=== PATIENT | male | born 1985 | race African-American/Black ===

== ENCOUNTER 2019-05-31 06:36 | Emergency (ER) | payer SELFPAY ==
--- OUTSIDE RECORDS SUMMARY | 2019-05-31 06:39 | XMS REPORT ---
:1985 [facility] Address [address] [place] [address] Dr. Abreu [address] [place] [id number] Care Team Providers Name Role Phone Unavailable Unavailable Unavailable Problems This patient has no known problems. Allergies, Adverse Reactions, Alerts This patient has no known allergies or adverse reactions. Medications This patient has no known medications.
[2019-05-31] MEDS ORDERED: METHYLPREDNISOLONE 125 MG INJ ONE (06:52)
[2019-05-31] MEDS ORDERED: LEVALBUTEROL 1.25 MG/3 ML NEB ONE ×2 (06:53→08:13)
[2019-05-31] MEDS ORDERED: Magnesium Sulfate 2gm IVPB 2 G/50 ML BAG IV ONE (06:53)
[2019-05-31] MEDS ORDERED: NA CHLORIDE 0.9% 1,000 ML ONE ×2 (07:05→09:06)
[2019-05-31 07:07] LABS: Absolute Lymphocytes (CBC) 1.2 K/uL (0.7-4.9); Basophils % 0.4 % (0-1.3); Hematocrit 39.3 % (39.6-49.0); Lymphocytes % 9.5 % (15.3-44.8); MPV 8.1 fL (7.6-11.3); RBC Red Blood Cell Count 4.68 M/uL (4.33-5.43)
[2019-05-31 07:56] LABS: Albumin 3.9 g/dL (3.4-5.0); Bilirubin Total 0.6 mg/dL (0.2-1.0); Potassium 3.6 mmol/L (3.5-5.1); Protein, Total 8.3 g/dL (6.4-8.2)
[2019-05-31] MEDS ORDERED: ACETAMINOPHEN 500 MG TAB ONE (07:56)
[2019-05-31] MEDS ORDERED: MAGNESIUM SULFATE 1 gm IVPB 1 GM/100 ML BAG IV ONE (08:02)
[2019-05-31] MEDS ORDERED: IPRATROPIUM BROM 0.5MG/2.5ML ONE (08:09)
--- NOTE | 2019-05-31 08:19 | RAD REPORT ---
EXAM DESCRIPTION: Mikaela Single View05/31/2019 6:56 am CLINICAL HISTORY: Shortness of breath COMPARISON: 2018 FINDINGS: The lungs appear clear of acute infiltrate. The heart is normal size IMPRESSION: No acute abnormalities displayed If the patient's symptoms persist PA and lateral chest series would be recommended
[2019-05-31] MEDS ORDERED: OSELTAMIVIR 75 MG CAP ONE (09:06)
[2019-05-31] MEDS ORDERED: IBUPROFEN 400 MG TAB ONE (09:38)
--- NOTE | 2019-05-31 12:01 | ER ---
Nurse's Notes [facility] Name: Isaiah Spain Age: 33 yrs Sex: Male : 1985 Arrival Date: 05/31/2019 Time: 06:40 Bed 8 Private MD: Diagnosis: Unspecified asthma with (acute) exacerbation;Influenza due to certain identified influenza viruses Presentation: 05/31 06:41 Presenting complaint: Patient states: Reports he started having an asthma flair up last ea night, reports taking his albuterol multiple times without improvement. Transition of care: patient was not received from another setting of care. Onset of symptoms was May 31, 2019. Risk Assessment: Do you want to hurt yourself or someone else? Patient reports no desire to harm self or others. Initial Sepsis Screen: Does the patient meet any 2 criteria? RR > 20 per min. Does the patient have a suspected source of infection? No. Patient's initial sepsis screen is negative. Care prior to arrival: Medication(s) given: Albuterol Neb. 06:41 Method Of Arrival: Ambulatory ea 06:41 Acuity: TAWANA 3 ea Triage Assessment: 06:46 General: Appears uncomfortable, Behavior is appropriate for age. Pain: Denies pain. ea Neuro: Level of Consciousness is awake, alert, obeys commands, Oriented to person, place, time, situation. Cardiovascular: Patient's skin is warm and dry. Respiratory: Reports shortness of breath Onset: The symptoms/episode began/occurred yesterday, the patient has mild shortness of breath. Derm: Skin is pink, warm \\T\\ dry. Historical: - Allergies: 06:46 No Known Allergies; ea - Home Meds: 06:46 ProAir HFA 90 mcg/actuation inhalation HFAA [Active]; ea - PMHx: 06:46 Asthma; ea - Immunization history:: Adult Immunizations not up to date. - Coronavirus screen:: The patient has NOT traveled to [place], [place], or [place] in the past 14 days. - Social history:: Smoking status: Patient denies any tobacco usage or history of. - Ebola Screening: : No symptoms or risks identified at this time. Screenin:45 Abuse screen: Denies threats or abuse. Nutritional screening: No deficits noted. ea Tuberculosis screening: No symptoms or risk factors identified. Fall Risk None identified. Assessment: 07:23 Reassessment: Lab at bedside recollecting chem 7 and collecting 2nd set of blood aa5 cultures. Pt states SOB has improved. . 08:00 Reassessment: Patient appears in no apparent distress at this time. request another em breathing treatment, provider notified. 09:55 Reassessment: Patient appears in no apparent distress at this time. Patient and/or em family updated on plan of care and expected duration. Pain level reassessed. Patient is alert, oriented x 3, equal unlabored respirations, skin warm/dry/pink. Patient states feeling better. Vital Signs: 06:44 BP 180 / 130; Pulse 139; Resp 24; Temp 97.6; Pulse Ox 97% on R/A; Weight 111.13 kg; ea Height 5 ft. 8 in. (172.72 cm); 07:49 BP 194 / 121; Pulse 142; Resp 20; Temp 101.7(O); Pulse Ox 96% on R/A; mh5 08:10 BP 197 / 102; em 08:10 Pulse 128; aa5 09:00 BP 189 / 94; Pulse 136; Resp 22 S; Pulse Ox 94% on R/A; aa5 09:23 Pulse 124; Resp 24 S; Temp 98.3(O); aa5 11:09 BP 186 / 112; Pulse 115; Resp 20; Pulse Ox 93% on R/A; em 06:44 Body Mass Index 37.25 (111.13 kg, 172.72 cm) ea 09:23 PA notified of decreased temperature aa5 ED Course: 06:40 Patient arrived in ED. ds1 06:42 Jose Cruz Acosta PA is PHCP. jmm 06:42 Nehemiah Faulkner MD is Attending Physician. jmm 06:43 Triage completed. ea 06:44 Patient has correct armband on for positive identification. Bed in low position. Call ea light in reach. Side rails up X 1. 06:45 Arm band placed on right wrist. Patient placed in an exam room, on a stretcher, on ea pulse oximetry. 06:54 Chest Single View XRAY In Process Unspecified. EDMS 06:58 Inserted saline lock: 20 gauge in left antecubital area, using aseptic technique. Blood rv collected. per [facility] tech. 07:00 Noel Thompson, RN is Primary Nurse. em 08:55 Pt states "my IV came out, I woke up and sat up fast so it came out". 20 G to L AC aa5 catheter intact, no swelling to site, pressure dressing applied, no active bleeding noted. 09:00 Inserted saline lock: 20 gauge in left antecubital area, using aseptic technique. aa5 13:02 IV discontinued, intact, bleeding controlled, No redness/swelling at site. Pressure em dressing applied. 13:02 No provider procedures requiring assistance completed. em Administered Medications: 06:57 Drug: Magnesium Sulfate 1 grams Route: IVPB; Infused Over: 1 hrs; Site: left rv antecubital; 07:55 Follow up: IV Status: Completed infusion aa5 06:57 Drug: SOLU-Medrol 125 mg Route: IVP; Site: left antecubital; rv 06:57 Drug: Xopenex (3) 1.25 mg Route: Inhalation; rv 07:06 Drug: NS 0.9% 1000 ml Route: IV; Rate: 1 bolus; Site: left antecubital; em 08:55 Follow up: IV Status: Completed infusion; IV Intake: 1000ml aa5 07:53 Drug: Tylenol 1000 mg Route: PO; aa5 09:31 Follow up: Response: No adverse reaction; Temperature is decreased em 08:02 Drug: Magnesium Sulfate 1 grams Route: IVPB; Infused Over: 1 hrs; Site: left em antecubital; 08:55 Follow up: IV came out, infusion paused at this time aa5 09:00 Follow up: Infusion restarted to L AC aa5 08:08 Drug: Ipratropium Aerosol 0.5 mg Route: Inhalation; em 09:55 Follow up: Response: No adverse reaction; Marked relief of symptoms em 08:13 Drug: Xopenex (3) 1.25 mg Route: Inhalation; em 09:55 Follow up: Response: No adverse reaction; Marked relief of symptoms em 09:07 Drug: NS 0.9% 1000 ml Route: IV; Rate: 1 bolus; Site: left antecubital; aa5 11:20 Follow up: IV Status: Completed infusion; IV Intake: 1000ml em 09:07 Drug: Tamiflu 75 mg Route: PO; aa5 09:55 Follow up: Response: No adverse reaction em 09:55 Drug: Motrin 800 mg Route: PO; em 11:19 Follow up: Response: No adverse reaction em Intake: 08:55 IV: 1000ml; Total: 1000ml. aa5 11:20 IV: 1000ml; Total: 2000ml. em Outcome: 12:00 [facility]charge [facility] 13:02 Discharged to home ambulatory, with family. em 13:02 Condition: good 13:02 Discharge instructions given to patient, Instructed on discharge instructions, follow up and referral plans. medication usage, Demonstrated understanding of instructions, follow-up care, medications, Prescriptions given X 2. 13:02 Patient left the ED. em Signatures: Dispatcher [employer] EDMS Jose Cruz Acosta PA PA jmm Munoz, Edgar, RN RN Clare Franco1 Martita Tran RN RN Carlita Valencia Elena RN RN Dm Barker RN RN rv Corrections: (The following items were deleted from the chart) 07:52 07:49 Temp 101.7F Oral; [facility]
--- NOTE | 2019-05-31 12:01 | EDPHYS ---
Physician Documentation [facility] Name: Isaiah Spain Age: 33 yrs Sex: Male : 1985 Arrival Date: 05/31/2019 Time: 06:40 Bed 8 Private MD: ED Physician Nehemiah Faulkner HPI: 05/31 06:44 This 33 yrs old Black Male presents to ER via Ambulatory with complaints of Shortness jmm Of Breath. 06:44 The patient has shortness of breath at rest. Onset: The symptoms/episode began/occurred jmm gradually, 1 day(s) ago. Duration: The symptoms are continuous. The patient's shortness of breath is aggravated by nothing, is alleviated by inhaler. Associated signs and symptoms: Pertinent negatives: non-productive cough, productive cough, fever, hemoptysis. This is a 33 year old male with a history of asthma that presents to the ED with complaints of shortness of breath. This episode is similar to previous exacerbations. Patient states he has been hospitalized and intubated secondary to asthma attacks before. Denies fever, denies chest pain. Historical: - Allergies: 06:46 No Known Allergies; ea - Home Meds: 06:46 ProAir HFA 90 mcg/actuation inhalation HFAA [Active]; ea - PMHx: 06:46 Asthma; ea - Immunization history:: Adult Immunizations not up to date. - Coronavirus screen:: The patient has NOT traveled to [place], [place], or [place] in the past 14 days. - Social history:: Smoking status: Patient denies any tobacco usage or history of. - Ebola Screening: : No symptoms or risks identified at this time. ROS: 06:44 Constitutional: Negative for fever, chills, and weight loss, Cardiovascular: Negative jmm for chest pain, palpitations, and edema. 06:44 Abdomen/GI: Negative for abdominal pain, nausea, vomiting, diarrhea, and constipation, Neuro: Negative for headache, weakness, numbness, tingling, and seizure. 06:44 Respiratory: Positive for shortness of breath. 06:44 All other systems are negative. Exam: 06:44 Constitutional: This is a well developed, well nourished patient who is awake, alert, jmm and in no acute distress. Head/Face: atraumatic. Eyes: EOMI, no conjunctival erythema appreciated ENT: Moist Mucus Membranes Neck: Trachea midline, Supple Chest/axilla: Normal chest wall appearance and motion. Cardiovascular: Regular rate and rhythm. No edema appreciated 06:44 Abdomen/GI: Non distended, soft Back: Normal ROM Skin: General appearance color normal MS/ Extremity: Moves all extremities, no obvious deformities appreciated, no edema noted to the lower extremities Neuro: Awake and alert, normal gait Psych: Behavior is normal, Mood is normal, Patient is cooperative and pleasant 06:44 Respiratory: mild respiratory distress is noted, Respirations: labored breathing, that is mild, Breath sounds: decreased breath sounds, that are moderate. Vital Signs: 06:44 BP 180 / 130; Pulse 139; Resp 24; Temp 97.6; Pulse Ox 97% on R/A; Weight 111.13 kg; ea Height 5 ft. 8 in. (172.72 cm); 07:49 BP 194 / 121; Pulse 142; Resp 20; Temp 101.7(O); Pulse Ox 96% on R/A; 5 08:10 BP 197 / 102; em 08:10 Pulse 128; aa5 09:00 BP 189 / 94; Pulse 136; Resp 22 S; Pulse Ox 94% on R/A; aa5 09:23 Pulse 124; Resp 24 S; Temp 98.3(O); aa5 11:09 BP 186 / 112; Pulse 115; Resp 20; Pulse Ox 93% on R/A; em 06:44 Body Mass Index 37.25 (111.13 kg, 172.72 cm) ea 09:23 PA notified of decreased temperature aa5 MDM: 06:48 Patient medically screened. [facility] 08:05 ED course: Increased breath sounds, wheezing noted bilaterally. [facility] 11:59 Data reviewed: vital signs, nurses notes. Counseling: I had a detailed discussion with [facility] the patient and/or guardian regarding: the historical points, exam findings, and any diagnostic results supporting the discharge/admit diagnosis, lab results, the need for outpatient follow up, to return to the emergency department if symptoms worsen or persist or if there are any questions or concerns that arise at home. ED course: Patient is alert and non toxic in appearance. Does not appear to be in resp distress. Patient given tamiflu. Steroids. Advised to follow up with pcp and otherwise given strict return precautions. Patient understood and agrees with the plan of care. . 01/27 06:44 Order name: CBC with Diff; Complete Time: 07:33 [facility] 05/31 06:44 Order name: CMP; Complete Time: 08:00 [facility] 05/31 06:44 Order name: Blood Culture Adult (2) [facility] 05/31 07:47 Order name: Flu; Complete Time: 08:36 [facility] 05/31 08:28 Order name: Lactate; Complete Time: 09:40 [facility] 05/31 06:44 Order name: Chest Single View XRAY; Complete Time: 08:19 [facility] 05/31 08:28 Order name: Procalcitonin; Complete Time: 09:40 [facility] 05/31 06:44 Order name: Saline Lock; Complete Time: 06:56 [facility] 05/31 07:11 Order name: Labs - recollect needed: recollect c7; Complete Time: 07:22 05/31 11:06 Order name: Misc. Order: Riley to evaluate prior to disposition; Complete Time: 13:01jmm Administered Medications: 06:57 Drug: Magnesium Sulfate 1 grams Route: IVPB; Infused Over: 1 hrs; Site: left rv antecubital; 07:55 Follow up: IV Status: Completed infusion aa5 06:57 Drug: SOLU-Medrol 125 mg Route: IVP; Site: left antecubital; rv 06:57 Drug: Xopenex (3) 1.25 mg Route: Inhalation; rv 07:06 Drug: NS 0.9% 1000 ml Route: IV; Rate: 1 bolus; Site: left antecubital; em 08:55 Follow up: IV Status: Completed infusion; IV Intake: 1000ml aa5 07:53 Drug: Tylenol 1000 mg Route: PO; aa5 09:31 Follow up: Response: No adverse reaction; Temperature is decreased em 08:02 Drug: Magnesium Sulfate 1 grams Route: IVPB; Infused Over: 1 hrs; Site: left em antecubital; 08:55 Follow up: IV came out, infusion paused at this time aa5 09:00 Follow up: Infusion restarted to L AC aa5 08:08 Drug: Ipratropium Aerosol 0.5 mg Route: Inhalation; em 09:55 Follow up: Response: No adverse reaction; Marked relief of symptoms em 08:13 Drug: Xopenex (3) 1.25 mg Route: Inhalation; em 09:55 Follow up: Response: No adverse reaction; Marked relief of symptoms em : Drug: NS 0.9% 1000 ml Route: IV; Rate: 1 bolus; Site: left antecubital; aa5 11:20 Follow up: IV Status: Completed infusion; IV Intake: 1000ml em : Drug: Tamiflu 75 mg Route: PO; aa5 :55 Follow up: Response: No adverse reaction em : Drug: Motrin 800 mg Route: PO; em 11:19 Follow up: Response: No adverse reaction em Disposition: 05/31/19 12:00 Discharged to Home. Impression: Unspecified asthma with (acute) exacerbation, Influenza due to certain identified influenza viruses. - Condition is Stable. - Discharge Instructions: Asthma, Adult, Influenza, Adult. - Prescriptions for Prednisone 20 mg Oral Tablet - take 3 tablet by ORAL route once daily for 5 days; 15 tablet. Tamiflu 75 mg Oral Capsule - take 1 tablet by ORAL route every 12 hours for 5 days; 10 tablet. - Medication Reconciliation Form, Thank You Letter, Antibiotic Education, Prescription Opioid Use form. - Follow up: Private Physician; When: 2 - 3 days; Reason: Recheck today's complaints, Continuance of care, Re-evaluation by your physician. Addendum: 06/03/2019 07:03 Co-signature as Attending Physician, Nehemiah Faulkner MD. r n Signatures: Dispatcher [employer] EDNM Tanya Hearn Joel, PA PA jmm Munoz, Edgar, RN Nehemiah Vincent MD MD rn Calderon, Audri RN RN aa5 Nereyda Butts RN Dm Mathis ea RN RN rv Corrections: (The following items were deleted from the chart) 05/31 11:40 08:17 Influenza Screen (A ordered. [facility] EDNM 13:02 12:00 05/31/2019 12:00 Discharged to Home. Impression: Unspecified asthma with (acute) em exacerbation; Influenza due to certain identified influenza viruses. Condition is Stable. Forms are Medication Reconciliation Form, Thank You Letter, Antibiotic Education, Prescription Opioid Use. Follow up: Private Physician; When: 2 - 3 days; Reason: Recheck today's complaints, Continuance of care, Re-evaluation by your physician. lacy
--- NOTE | 2019-05-31 12:34 | P.CNS ---
Date of Consult: 05/31/19 Primary Care Provider: None Chief Complaint: Shortness of breath History of Present Illness: The patient is a 33-year-old male with past medical history of mild intermittent asthma well controlled with Advair. The patient was in his usual state of health until the night prior to admission when the patient had sudden onset of shortness of breath and felt like his asthma attack. Patient was requiring his rescue inhaler every 2 hr. And significant shortness of breath and had some fever chills and myalgias. Patient does report and contact. His friend has been ill with similar symptoms. Patient symptoms are constant moderate progressively worsening. Patient came into the ER for further evaluation. I was called to evaluate the patient to see if he needs to be hospitalized. he received breathing treatments, steroids his workup revealed a normal chest x- ray however was positive for flu. By the time I saw the patient had already received multiple breathing treatments, was feeling significantly better to not have any hypoxia. Allergies No Known Drug Allergies Allergy (Unverified 05/10/14 16:25) Unknown No Known Allergies Allergy (Uncoded 05/15/17 07:56) Unknown Home medications list reviewed: Yes - Past Medical/Surgical History Diabetic: No -: Asthma Past Surgical History: Patient denies surgical history - Social History Smoking Status: Never smoker Alcohol use: No CD- Drugs: No Place of Residence: Home Review of Systems 10-point ROS is otherwise unremarkable Respiratory: As per HPI Physical Examination General: Alert, Oriented x3, Mild distress, Obese HEENT: Atraumatic, PERRLA, Mucous membr. moist/pink, EOMI, Sclerae nonicteric Neck: Supple Respiratory: Diminished, Expiratory wheezes Cardiovascular: No edema, Normal pulses, Normal S1 S2, Irregular heart rate/ rhythm Gastrointestinal: Normal bowel sounds, Soft and benign, Non-distended, No tenderness Musculoskeletal: No tenderness Neurological: Normal gait, Normal speech, Normal strength at 5/5 x4 extr, Normal tone, Cranial nerves 3-12 intact, Normal affect Laboratory Data (last 24 hrs) 05/31/19 07:25: Sodium 137, Potassium 3.6, BUN 10, Creatinine 1.45 H, Glucose 105, Total Bilirubin 0.6, AST 17, ALT 25, Alkaline Phosphatase 100 05/31/19 06:55: WBC 12.5 H, Hgb 12.8 L, Hct 39.3 L, Plt Count 374 Imagings Data: CLINICAL HISTORY: Shortness of breath COMPARISON: 2018 FINDINGS: The lungs appear clear of acute infiltrate. The heart is normal size IMPRESSION: No acute abnormalities displayed If the patient's symptoms persist PA and lateral chest series would be recommended Dictated By: Nitin Orellana MD 05/31/19 0818 - Problems (1) Influenza Current Visit: Yes Status: Acute (2) Acute asthma exacerbation Current Visit: Yes Status: Acute Qualifiers: Asthma severity: mild Asthma persistence: intermittent Qualified Code(s) : J45.21 - Mild intermittent asthma with (acute) exacerbation (3) Acute kidney injury Current Visit: Yes Status: Acute (4) Obesity Current Visit: Yes Status: Acute Qualifiers: Obesity type: due to excess calories Obesity classification: adult class 2 (BMI 35 - 39.9) Serious obesity comorbidity presence: without serious comorbidity Body mass index: BMI 37.0-37.9 Qualified Code(s): E66.09 - Other obesity due to excess calories; Z68.37 - Body mass index (BMI) 37.0-37.9, adult Conclusions/Impression: Patient received breathing treatments and treatment for his flu. His breathing is significantly better. No hypoxia. The patient has had some tachycardia which may be related to his breathing treatments. Blood pressure is slightly elevated in the 150's. Case discussed with ER provider Jose Cruz AGUDELO No acute signs of hypoxia and good clinical response to breathing treatments Patient stable for discharge with Tamiflu steroids and inhalers. Patient encouraged to establish care with primary care physician and leasing sales consultant. Went over peak flow and emergency asthma treatment plan with the patient. Encouraged to continue with aggressive fluid hydration.
[2019-05-31 13:30] VITALS: TEMP 98.3
[2019-05-31 13:32] VITALS: BP 186/112; O2SAT 93
== END 2019-05-31 13:02 | disposition home or self-care (01) ==
LOC: ER 06:36
DX: J10.89 Influenza due to other identified influenza virus with other manifestations (principal); J45.901 Unspecified asthma with (acute) exacerbation
CPT/HCPCS: 36415; 71045; 80053; 83605; 84145; 85025; 87040; 87804; 96361; 96365; 96375; 99284; J2930; J3475; J7030

== ENCOUNTER 2019-06-10 21:46 | Inpatient (IN) | payer SELFPAY ==
--- OUTSIDE RECORDS SUMMARY | 2019-06-10 21:48 | XMS REPORT ---
:1985 [facility] Address [address] [place] [address] Dr. Abreu [address] [place] [id number] Care Team Providers Name Role Phone Unavailable Unavailable Unavailable Problems This patient has no known problems. Allergies, Adverse Reactions, Alerts This patient has no known allergies or adverse reactions. Medications This patient has no known medications.
--- NOTE | 2019-06-10 22:27 | EDPHYS ---
Physician Documentation [facility] Name: Isaiah Spain Age: 33 yrs Sex: Male : 1985 Arrival Date: 06/10/2019 Time: 21:47 Bed 14 Private MD: ED Physician Jones Lin HPI: 06/10 22:21 This 33 yrs old Black Male presents to ER via Wheelchair with complaints of Breathing ja Difficulty, Dizziness, High Blood Pressure. 22:21 The patient has shortness of breath at rest, with light activity. Onset: The ja symptoms/episode began/occurred 3 day(s) ago. Duration: The symptoms are continuous, and are steadily getting worse. The patient's shortness of breath is aggravated by coughing, light activity, talking. Associated signs and symptoms: Pertinent positives: non-productive cough, dizziness, fever, nausea. Severity of symptoms: At their worst the symptoms were moderate in the emergency department the symptoms are unchanged. The patient has not experienced similar symptoms in the past. Historical: - Allergies: 22:01 No Known Allergies; lp1 - Home Meds: 22:01 ProAir HFA 90 mcg/actuation inhalation HFAA [Active]; lp1 - PMHx: 22:01 Asthma; lp1 - PSHx: 22:01 None; lp1 - Immunization history:: Adult Immunizations up to date. - Coronavirus screen:: The patient has NOT traveled to [place], [place], or [place] in the past 14 days. The patient has NOT had contact with known/suspected case of Coronavirus?. - Social history:: Smoking status: Patient denies any tobacco usage or history of. - Ebola Screening: : No symptoms or risks identified at this time. ROS: 22:22 Eyes: Negative for injury, pain, redness, and discharge, ENT: Negative for injury, ja pain, and discharge, Neck: Negative for injury, pain, and swelling, Cardiovascular: Negative for chest pain, palpitations, and edema, Abdomen/GI: Negative for abdominal pain, nausea, vomiting, diarrhea, and constipation, Back: Negative for injury and pain, : Negative for injury, bleeding, discharge, and swelling, MS/Extremity: Negative for injury and deformity, Skin: Negative for injury, rash, and discoloration, Neuro: Negative for headache, weakness, numbness, tingling, and seizure, Psych: Negative for depression, anxiety, suicide ideation, homicidal ideation, and hallucinations, Allergy/Immunology: Negative for hives, rash, and allergies, Endocrine: Negative for neck swelling, polydipsia, polyuria, polyphagia, and marked weight changes, Hematologic/Lymphatic: Negative for swollen nodes, abnormal bleeding, and unusual bruising. 22:22 Cardiovascular: Positive for palpitations. 22:22 Respiratory: Positive for cough, shortness of breath, wheezing, expiratory. Exam: 22:22 Head/Face: Normocephalic, atraumatic. Eyes: Pupils equal round and reactive to light, ja extra-ocular motions intact. Lids and lashes normal. Conjunctiva and sclera are non-icteric and not injected. Cornea within normal limits. Periorbital areas with no swelling, redness, or edema. ENT: Nares patent. No nasal discharge, no septal abnormalities noted. Tympanic membranes are normal and external auditory canals are clear. Oropharynx with no redness, swelling, or masses, exudates, or evidence of obstruction, uvula midline. Mucous membranes moist. Neck: Trachea midline, no thyromegaly or masses palpated, and no cervical lymphadenopathy. Supple, full range of motion without nuchal rigidity, or vertebral point tenderness. No Meningismus. Chest/axilla: Normal chest wall appearance and motion. Nontender with no deformity. No lesions are appreciated. Respiratory: Lungs have equal breath sounds bilaterally, clear to auscultation and percussion. No rales, rhonchi or wheezes noted. No increased work of breathing, no retractions or nasal flaring. Abdomen/GI: Soft, non-tender, with normal bowel sounds. No distension or tympany. No guarding or rebound. No evidence of tenderness throughout. Back: No spinal tenderness. No costovertebral tenderness. Full range of motion. Male : Normal genitalia with no discharge or lesions. Skin: Warm, dry with normal turgor. Normal color with no rashes, no lesions, and no evidence of cellulitis. MS/ Extremity: Pulses equal, no cyanosis. Neurovascular intact. Full, normal range of motion. Neuro: Awake and alert, GCS 15, oriented to person, place, time, and situation. Cranial nerves II-XII grossly intact. Motor strength 5/5 in all extremities. Sensory grossly intact. Cerebellar exam normal. Normal gait. Psych: Awake, alert, with orientation to person, place and time. Behavior, mood, and affect are within normal limits. 22:22 Constitutional: The patient appears in obvious distress, mildly distressed, moderately distressed. 22:22 Cardiovascular: Rate: tachycardic, Rhythm: regular, Pulses: Pulses are 4+ in bilateral radial, brachial, femoral, popliteal, posterior tibial and and dorsalis pedis arteries.. Heart sounds: normal, Edema: is not appreciated. 22:22 Respiratory: the patient does not display signs of respiratory distress. Vital Signs: 21:59 BP 156 / 98; Pulse 157; Resp 24; Temp 103.3(O); Pulse Ox 100% on R/A; Weight 113.4 kg lp1 (R); Height 5 ft. 8 in. (172.72 cm); Pain 8/10; 23:00 BP 134 / 92; Pulse 102; Resp 29; Pulse Ox 99% ; rr5 06/11 00:00 BP 147 / 102; Pulse 97; Resp 23; Temp 99.3(O); Pulse Ox 98% on R/A; rr5 01:00 BP 147 / 104; Pulse 115; Resp 24; Pulse Ox 96% ; rr5 06/10 21:59 Body Mass Index 38.01 (113.40 kg, 172.72 cm) lp1 MDM: 06/10 22:08 Patient medically screened. [facility] 22:23 Data reviewed: vital signs, nurses notes, lab test result(s), EKG, radiologic studies, [facility] CT scan, plain films. 06/10 22:10 Order name: Amylase, Serum 06/10 22:10 Order name: Basic Metabolic Panel 06/10 22:10 Order name: Blood Culture Adult (2) 06/10 22:10 Order name: CBC with Diff 06/10 22:10 Order name: Ckmb 06/10 22:10 Order name: CPK 06/10 22:10 Order name: Lactate 06/10 22:10 Order name: LFT's 06/10 22:10 Order name: Lipase 06/10 22:10 Order name: Procalcitonin 06/10 22:10 Order name: Protime (+inr) 06/10 22:10 Order name: Ptt, Activated 06/10 22:10 Order name: Troponin (emerg Dept Use Only) 06/10 22:10 Order name: Urine Microscopic Only 06/10 22:10 Order name: Magnesium 06/10 22:10 Order name: NT PRO-BNP 06/10 22:58 Order name: Lactate; Complete Time: 23:05 EDMS 06/10 23:10 Order name: CBC with Automated Diff; Complete Time: 00:12 EDMS 06/10 23:10 Order name: Glucose, Ancillary Testing; Complete Time: 23:33 EDMS 06/10 23:12 Order name: Protime (+INR); Complete Time: 23:33 EDMS 06/10 23:12 Order name: PTT, Activated Partial Thromb; Complete Time: 23:33 EDMS 06/10 23:26 Order name: Basic Metabolic Panel; Complete Time: 23:33 EDMS 06/10 23:26 Order name: Liver (Hepatic) Function; Complete Time: 23:33 EDMS 06/10 23:26 Order name: Creatine Phosphokinase; Complete Time: 23:33 EDMS 06/10 23:26 Order name: CKMB Creatine Kinase MB; Complete Time: 23:33 EDMS 06/10 23:26 Order name: Troponin (Emerg Dept Use Only); Complete Time: 23:33 EDMS 06/10 23:26 Order name: NT PRO-BNP; Complete Time: 23:33 EDMS 06/10 23:26 Order name: Magnesium; Complete Time: 23:33 EDMS 06/10 23:26 Order name: Amylase Level; Complete Time: 23:33 EDMS 06/10 23:26 Order name: Lipase; Complete Time: 23:33 EDMS 06/10 22:10 Order name: Chest Single View XRAY 06/10 22:10 Order name: Accucheck; Complete Time: 00:24 06/10 22:10 Order name: Cardiac monitoring; Complete Time: 22:55 06/10 22:10 Order name: EKG - Nurse/Tech; Complete Time: 22:55 06/10 22:10 Order name: IV Saline Lock - Large Bore; Complete Time: 22:55 06/10 22:10 Order name: Labs collected and sent; Complete Time: 22:55 06/10 22:10 Order name: O2 Per Protocol; Complete Time: 22:55 06/10 22:10 Order name: O2 Sat Monitoring; Complete Time: 22:55 bb 06/10 22:10 Order name: Urine Dipstick-Ancillary (obtain specimen); Complete Time: 00:24 bb 06/10 22:10 Order name: EKG; Complete Time: 22:13 bb 06/10 22:20 Order name: CT Chest For PE Angio ja 06/10 23:31 Order name: Procalcitonin; Complete Time: 23:33 EDMS 06/10 23:56 Order name: Manual Differential; Complete Time: 00:12 EDMS 06/11 00:04 Order name: Urine Dipstick--Ancillary (enter results) mw2 06/11 00:12 Order name: Urine Culture [facility] 06/11 00:17 Order name: Urine Dipstick-Ancillary EDDC 06/11 00:22 Order name: Urine Microscopic Only EDMS Administered Medications: 22:20 Drug: Motrin 800 mg Route: PO; rr5 23:40 Follow up: Response: No adverse reaction; Temperature is decreased rr5 22:20 Drug: Tylenol 1000 mg Route: PO; rr5 23:40 Follow up: Response: No adverse reaction; Marked relief of symptoms; Temperature is rr5 decreased 22:25 Drug: NS 0.9% (30 ml/kg) 30 ml/kg Route: IV; Rate: bolus; Site: right hand; rr5 06/11 01:16 Follow up: Response: No adverse reaction; IV Status: Infusion continued upon admission; rr5 IV Intake: 2600ml 06/10 22:30 Drug: Xopenex 1.25 mg Route: Inhalation; rr5 23:30 Follow up: Response: No adverse reaction; Marked relief of symptoms rr5 22:30 Drug: AtroVENT Aerosol 0.5 mg Route: Inhalation; rr5 23:30 Follow up: Response: No adverse reaction; Marked relief of symptoms rr5 22:45 Drug: Rocephin 2 grams Route: IV; Rate: per protocol; Site: right hand; rr5 23:00 Follow up: Response: No adverse reaction; IV Status: Completed infusion; IV Intake: [id number] 22:55 Drug: Zofran 4 mg Route: IVP; Site: right hand; rr5 06/11 00:00 Follow up: Response: No adverse reaction rr5 06/10 22:59 Dru mg of (Zithromax 500 mg, NS 0.9% 250 ml) Route: IVPB; Infused Over: 1 hrs; rr5 Site: right hand; 06/11 00:00 Follow up: Response: No adverse reaction; IV Status: Completed infusion; IV Intake: rr5 250ml 06/10 23:08 Drug: SOLU-Medrol 125 mg Route: IVP; Site: right hand; rr5 06/11 00:10 Follow up: Response: No adverse reaction rr5 06/10 23:08 Drug: Xopenex 1.25 mg Route: Inhalation; rr5 06/11 00:20 Follow up: Response: No adverse reaction; Marked relief of symptoms rr5 06/10 23:35 Drug: Magnesium Sulfate 2 grams Route: IVPB; Infused Over: 2 hrs; Site: right hand; rr5 06/11 01:15 Follow up: Response: No adverse reaction; IV Status: Infusion continued upon admission; rr5 IV Intake: 30ml 00:05 Drug: Aspirin Chewable Tablet 324 mg Route: PO; rr5 01:13 Follow up: Response: No adverse reaction rr5 Disposition: 06/10/19 22:24 Hospitalization ordered by [facility] for Inpatient Admission. Preliminary diagnosis are Dyspnea - failed out patient treatment, Fever, unspecified, Pneumonia due to other specified bacteria, Asthma, Hypomagnesemia, Elevated white blood cell count. - Bed requested for Telemetry/MedSurg (Inpatient). - Status is Inpatient Admission. rr5 - Condition is Fair. - Problem is new. - Symptoms have improved. Signatures: Dispatcher [employer] EDMS Jones Lin MD MD cha Ballard, Brenda, RN RN Diana Garcia RN RN lp1 Zoë Elder RN RN Justin Marroquin RN RN rr5 Corrections: (The following items were deleted from the chart) 06/10 23:35 22:24 Hospitalization Ordered by [facility] for Inpatient Admission. Preliminary [facility] diagnosis is Dyspnea - failed out patient treatment; Fever, unspecified; Pneumonia due to other specified bacteria; Asthma. Bed requested for Telemetry/MedSurg (Inpatient). Status is Inpatient Admission. Condition is Fair. Problem is new. Symptoms have improved. ja 06/11 00:03 06/10 23:35 06/10/2019 22:24 Hospitalization Ordered by [facility] for Inpatient cg Admission. Preliminary diagnosis is Dyspnea - failed out patient treatment; Fever, unspecified; Pneumonia due to other specified bacteria; Asthma; Hypomagnesemia; Elevated white blood cell count. Bed requested for Telemetry/MedSurg (Inpatient). Status is Inpatient Admission. Condition is Fair. Problem is new. Symptoms have improved. [facility] 06/11 01:46 00:03 06/10/2019 22:24 Hospitalization Ordered by [facility] for Inpatient rr5 Admission. Preliminary diagnosis is Dyspnea - failed out patient treatment; Fever, unspecified; Pneumonia due to other specified bacteria; Asthma; Hypomagnesemia; Elevated white blood cell count. Bed requested for Telemetry/MedSurg (Inpatient). Status is Inpatient Admission. Condition is Fair. Problem is new. Symptoms have improved. cg
--- NOTE | 2019-06-10 22:27 | ER ---
Nurse's Notes [facility] Name: Isaiah Spain Age: 33 yrs Sex: Male : 1985 Arrival Date: 06/10/2019 Time: 21:47 Bed 14 Private MD: Diagnosis: Dyspnea-failed out patient treatment;Fever, unspecified;Pneumonia due to other specified bacteria;Asthma;Hypomagnesemia;Elevated white blood cell count Presentation: 06/10 21:58 Presenting complaint: Patient states: Shortness of breath today; States no relief with lp1 inhaler and nebulizer at home; states diagnosed with the Flu last week here in ED; States dizziness and headache. Transition of care: patient was not received from another setting of care. Onset of symptoms was June 10, 2019. Risk Assessment: Do you want to hurt yourself or someone else? Patient reports no desire to harm self or others. Initial Sepsis Screen: Does the patient meet any 2 criteria? RR > 20 per min. Temp <36.0*C (96.8*F)) or > 38.3*C (100.9*F). HR > 90 bpm. Does the patient have a suspected source of infection? Yes: Productive cough/pneumonia. Care prior to arrival: None. 21:58 Method Of Arrival: Wheelchair lp1 21:58 Acuity: TAWANA 2 lp1 Triage Assessment: 22:00 Respiratory: the patient has mild shortness of breath. rr5 Historical: - Allergies: 22:01 No Known Allergies; lp1 - Home Meds: 22:01 ProAir HFA 90 mcg/actuation inhalation HFAA [Active]; lp1 - PMHx: 22:01 Asthma; lp1 - PSHx: 22:01 None; lp1 - Immunization history:: Adult Immunizations up to date. - Coronavirus screen:: The patient has NOT traveled to [place], [place], or [place] in the past 14 days. The patient has NOT had contact with known/suspected case of Coronavirus?. - Social history:: Smoking status: Patient denies any tobacco usage or history of. - Ebola Screening: : No symptoms or risks identified at this time. Screenin:00 Abuse screen: Denies threats or abuse. Denies injuries from another. Nutritional rr5 screening: No deficits noted. 22:00 Tuberculosis screening: No symptoms or risk factors identified. Fall Risk IV access (20 rr5 points). Total Justice Fall Scale indicates No Risk (0-24 pts). Assessment: 22:00 General: Appears in no apparent distress. uncomfortable, ill, Behavior is calm, rr5 cooperative, appropriate for age. 22:00 Pain: Complains of pain in head Pain does not radiate. Pain currently is 8 out of 10 on rr5 a pain scale. Quality of pain is described as aching, Pain began gradually, Is intermittent. Neuro: Level of Consciousness is awake, alert, obeys commands, Oriented to person, place, time, situation, Appropriate for age Reports dizziness, headache. Cardiovascular: Capillary refill < 3 seconds Patient's skin is warm and dry. Rhythm is sinus tachycardia. Respiratory: Reports shortness of breath cough that is been diagnosed Flu last week Airway is patent Respiratory effort is even, unlabored, Respiratory pattern is regular, tachypnea GI: No signs and/or symptoms were reported involving the gastrointestinal system. : No signs and/or symptoms were reported regarding the genitourinary system. EENT: No signs and/or symptoms were reported regarding the EENT system. Derm: Skin is intact, is healthy with good turgor, Skin temperature is warm. Musculoskeletal: Circulation, motion, and sensation intact. Capillary refill < 3 seconds. 23:00 Reassessment: Patient appears in no apparent distress at this time. Patient and/or rr5 family updated on plan of care and expected duration. Pain level reassessed. Patient is alert, oriented x 3, equal unlabored respirations, skin warm/dry/pink. awaiting for results. for admission hospitalist at bedside examining the patient. 23:05 Reassessment: WBC 20.9 candy of laboratory staff called, ED provider aware. rr5 02/07 00:16 Reassessment: Patient appears in no apparent distress at this time. Patient is alert, rr5 oriented x 3, equal unlabored respirations, skin warm/dry/pink. for CT angio PE. sitting on the bed comfortably. Patient states feeling better. Patient states symptoms have improved. 01:19 Reassessment: Patient appears in no apparent distress at this time. Patient is alert, rr5 oriented x 3, equal unlabored respirations, skin warm/dry/pink. for transfer to Room 213. 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 Patient states symptoms have improved. Vital Signs: 06/10 21:59 BP 156 / 98; Pulse 157; Resp 24; Temp 103.3(O); Pulse Ox 100% on R/A; Weight 113.4 kg lp1 (R); Height 5 ft. 8 in. (172.72 cm); Pain 8/10; 23:00 BP 134 / 92; Pulse 102; Resp 29; Pulse Ox 99% ; rr5 02 00:00 BP 147 / 102; Pulse 97; Resp 23; Temp 99.3(O); Pulse Ox 98% on R/A; rr5 01:00 BP 147 / 104; Pulse 115; Resp 24; Pulse Ox 96% ; rr5 02 21:59 Body Mass Index 38.01 (113.40 kg, 172.72 cm) lp1 ED Course: 06/10 21:47 Patient arrived in ED. jg7 21:53 Justin Marroquin, RN is Primary Nurse. rr5 21:59 Triage completed. lp1 22:00 Arm band placed on. lp1 22:00 Patient has correct armband on for positive identification. Placed in gown. Bed in low rr5 position. Call light in reach. bus monitor on. Pulse ox on. NIBP on. 22:08 Jones Lin MD is Attending Physician. ja 22:20 No provider procedures requiring assistance completed. Inserted saline lock: 20 gauge rr5 in right hand, using aseptic technique. Blood collected. 22:20 First set of blood cultures drawn. rr5 22:23 [facility] is Hospitalizing Provider. ja 22:40 EKG done, by ED staff, reviewed by Jones Lin MD. rr5 23:00 Second set of blood cultures drawn by ny. rr5 23:04 Radiology exam delayed due to lab results not completed at this time. (BUN/Creatinine). kw1 23:56 Radiology exam delayed due to IV insertion attempt and/or patient not having kw1 appropriate IV at this time. 06/11 00:08 Inserted saline lock: 20 gauge in left antecubital area, using aseptic technique. ds4 01:10 Patient admitted, IV remains in place. intact, No redness/swelling at site. rr5 Administered Medications: 06/10 22:20 Drug: Motrin 800 mg Route: PO; rr5 23:40 Follow up: Response: No adverse reaction; Temperature is decreased rr5 22:20 Drug: Tylenol 1000 mg Route: PO; rr5 23:40 Follow up: Response: No adverse reaction; Marked relief of symptoms; Temperature is rr5 decreased 22:25 Drug: NS 0.9% (30 ml/kg) 30 ml/kg Route: IV; Rate: bolus; Site: right hand; rr5 06/11 01:16 Follow up: Response: No adverse reaction; IV Status: Infusion continued upon admission; rr5 IV Intake: 2600ml 06/10 22:30 Drug: Xopenex 1.25 mg Route: Inhalation; rr5 23:30 Follow up: Response: No adverse reaction; Marked relief of symptoms rr5 22:30 Drug: AtroVENT Aerosol 0.5 mg Route: Inhalation; rr5 23:30 Follow up: Response: No adverse reaction; Marked relief of symptoms rr5 22:45 Drug: Rocephin 2 grams Route: IV; Rate: per protocol; Site: right hand; rr5 23:00 Follow up: Response: No adverse reaction; IV Status: Completed infusion; IV Intake: [id number] 22:55 Drug: Zofran 4 mg Route: IVP; Site: right hand; rr5 06/11 00:00 Follow up: Response: No adverse reaction rr5 06/10 22:59 Dru mg of (Zithromax 500 mg, NS 0.9% 250 ml) Route: IVPB; Infused Over: 1 hrs; rr5 Site: right hand; 06/11 00:00 Follow up: Response: No adverse reaction; IV Status: Completed infusion; IV Intake: rr5 250ml 06/10 23:08 Drug: SOLU-Medrol 125 mg Route: IVP; Site: right hand; rr5 06/11 00:10 Follow up: Response: No adverse reaction rr5 06/10 23:08 Drug: Xopenex 1.25 mg Route: Inhalation; rr5 06/11 00:20 Follow up: Response: No adverse reaction; Marked relief of symptoms rr5 06/10 23:35 Drug: Magnesium Sulfate 2 grams Route: IVPB; Infused Over: 2 hrs; Site: right hand; rr5 06/11 01:15 Follow up: Response: No adverse reaction; IV Status: Infusion continued upon admission; rr5 IV Intake: 30ml 00:05 Drug: Aspirin Chewable Tablet 324 mg Route: PO; rr5 01:13 Follow up: Response: No adverse reaction rr5 Intake: 06/10 23:00 IV: 20ml; Total: 20ml. rr5 06/11 00:00 IV: 250ml; Total: 270ml. rr5 01:15 IV: 30ml; Total: 300ml. rr5 01:16 IV: 2600ml; Total: 2900ml. rr5 Outcome: 06/10 22:24 Decision to Hospitalize by Provider. ja 06/11 01:05 Admitted to Med/surg accompanied by tech, via wheelchair, room 213, with chart, Report rr5 called to [facility] Condition: stable Instructed on the need for admit. 01:46 Patient left the ED. rr5 Signatures: Jones Lin MD MD cha Pena, Laura, RN RN lp1 Marcus Alfaro ds4 Laura Mosqueda kw1 Justin Marroquin RN RN rr5 Angie [id number] Corrections: (The following items were deleted from the chart) 01:14 00:05 Magnesium Sulfate 2 grams IVPB in right hand over 2 hrs rr5 rr5 01:14 01:13 Response: No adverse reaction; IV Status: Infusion continued upon admission; IV rr5 Intake: 2500ml rr5
[2019-06-10] MEDS ORDERED: IPRATROPIUM BROM 0.5MG/2.5ML ONE (22:32)
[2019-06-10] MEDS ORDERED: NA CHLORIDE 0.9% 500 ML ONE (22:32)
[2019-06-10] MEDS ORDERED: IBUPROFEN 400 MG TAB ONE (22:32)
[2019-06-10] MEDS ORDERED: NA CHLORIDE 0.9% 250 ML ONE (22:32)
[2019-06-10] MEDS ORDERED: CEFTRIAXONE/SWI 1gm 1 GM/10 ML SYR ONE ×2 (22:32→23:07)
[2019-06-10] MEDS ORDERED: AZITHROMYCIN 500 MG INJ IVPB ONE (22:32)
[2019-06-10] MEDS ORDERED: ACETAMINOPHEN 500 MG TAB ONE (22:32)
[2019-06-10] MEDS ORDERED: LEVALBUTEROL 1.25 MG/3 ML NEB ONE ×2 (22:33→23:07)
[2019-06-10] MEDS ORDERED: NA CHLORIDE 0.9% 3,000 ML ONE (22:33)
[2019-06-10 22:35] LABS: Absolute Lymphocytes (CBC) 0.9 K/uL (0.7-4.9); Basophils % 0.3 % (0-1.3)
[2019-06-10] MEDS ORDERED: ONDANSETRON 4 MG/2 ML VIAL ONE (22:54)
[2019-06-10 23:03] LABS: Hematocrit 40.4 % (39.6-49.0); Lymphocytes % 4.5 % (15.3-44.8); RBC Red Blood Cell Count 4.81 M/uL (4.33-5.43)
[2019-06-10] MEDS ORDERED: METHYLPREDNISOLONE 125 MG INJ ONE (23:07)
[2019-06-10 23:10] LABS: Protime INR 1.29
[2019-06-10 23:25] LABS: ALT/SGPT 20 U/L (12-78); AST/SGOT 21 U/L (15-37); Albumin 3.4 g/dL (3.4-5.0); Alkaline Phosphatase 89 U/L (45-117); Amylase Level 107 U/L (25-115); BUN Blood Urea Nitrogen 12 mg/dL (7-18); Bicarbonate 24 mmol/L (21-32); Bilirubin Direct 0.2 mg/dL (0-0.2); CKMB Creatine Kinase MB < 1.0 ng/mL (0.3-3.6); Creatine Phosphokinase 250 U/L (39-308); Glucose Level 98 mg/dL (74-106); Lipase 189 U/L (73-393); Magnesium 1.5 mg/dL (1.8-2.4); NT PRO-BNP 654 pg/mL (<125); Potassium 3.6 mmol/L (3.5-5.1); Protein, Total 8.1 g/dL (6.4-8.2); Sodium Level 135 mmol/L (136-145); Troponin (Emerg Dept Use Only) 0.05 ng/mL (0.0-0.045)
--- NOTE | 2019-06-10 23:54 | P.HP ---
Certification for Inpatient Patient admitted to: Inpatient With expected LOS: >2 Midnights Practitioner: I am a practitioner with admitting privileges, knowledge of patient current condition, hospital course, and medical plan of care. Services: Services provided to patient in accordance with Admission requirements found in Title 42 Section 412.3 of the Code of Federal Regulations Patient History Date of Service: 06/11/19 Reason for admission: Fever and malaise History of Present Illness: 33-year-old gentleman with a history of asthma presented to the ED with a complaint of generalized weakness, malaise and fever. The patient was in the ED 1 week ago, diagnosed with influenza A infection and started on Tamiflu. He stated he felt fine for several days but started having fever yesterday. He reports nonproductive cough and occasional wheeze. He denies chest pain. He denies nasal congestion. Patient noted to be febrile with temperature up to 103.3 in the ED. Blood work in the ED revealed severe leukocytosis. Pro calcitonin elevated. Serum creatinine is elevated to 1.7 compared to baseline of 1, and troponin mildly elevated. CTA thorax is reporting small burden bilateral PE. I suspect patient also has ongoing acute viral illness, bacterial infection was ruled out. Patient is admitted for further management. Allergies No Known Drug Allergies Allergy (Verified 06/11/19 02:01) Unknown No Known Allergies Allergy (Uncoded 05/15/17 07:56) Unknown Home Medications: Albuterol Sulfate [Proair Hfa] 1 puff IH Q6HP PRN 06/11/19 - Past Medical/Surgical History Diabetic: No -: Asthma - Family History Mother -: Heart disease - Social History Smoking Status: Light Tobacco smoker (1-9 cigarettes/day) Alcohol use: No CD- Drugs: No Place of Residence: Home Review of Systems Other: General: No unintentional weight loss. Eyes: No eye discharge, Respiratory: No shortness of breath. CVS: No chest pain, no palpitation, no lightheadedness. GI: No abdominal pain, no nausea no vomit, no constipation, no diarrhea. Genitourinary: No dysuria, no urinary frequency, no incontinence, no hematuria. Musculoskeletal: No joint pains, or joint swelling, no gait instability. Neurology: No headache, no asymmetric weakness, no problem with swallowing. Except as documented, all other systems reviewed and negative. Physical Examination - Physical Exam General: Alert, In no apparent distress, Oriented x3, Obese HEENT: Atraumatic, Normocephalic, Mucous membr. moist/pink, Sclerae nonicteric Neck: Supple, JVD not distended Respiratory: Clear to auscultation bilaterally, Normal air movement Cardiovascular: No edema, Normal S1 S2, Other (Tachycardia) Capillary refill: <2 Seconds Gastrointestinal: Normal bowel sounds, Soft and benign, Non-distended, No tenderness Musculoskeletal: No swelling, No erythema Integumentary: No rashes, No tenderness/swelling Neurological: Normal speech, Normal strength at 5/5 x4 extr, Cranial nerves 3- 12 intact - Studies Laboratory Data (last 24 hrs) 06/10/19 22:22: Sodium 135 L, Potassium 3.6, BUN 12, Creatinine 1.74 H, Glucose 98, Magnesium 1.5 L, Total Bilirubin 1.0, AST 21, ALT 20, Alkaline Phosphatase 89, Amylase 107, Lipase 189 06/10/19 22:20: PT 15.1 H, INR 1.29, APTT 31.4 06/10/19 22:20: WBC 20.9 H* D, Hgb 12.9 L, Hct 40.4, Plt Count 390 Assessment and Plan - Problems (Diagnosis) (1) Sepsis Current Visit: Yes Status: Acute (2) Influenza A Current Visit: Yes Status: Acute (3) Elevated troponin Current Visit: Yes Status: Acute (4) Acute kidney injury Current Visit: No Status: Acute (5) Pulmonary embolism Current Visit: Yes Status: Acute (6) Asthma Current Visit: Yes Status: Acute - Plan Admit to the medical floor. Full-dose Lovenox Continue Tamiflu Empiric IV antibiotics-Rocephin and Zithromax Follow blood cultures Monitor CBC IV hydration Bronchodilators p.r.n.. Supplemental oxygen as needed. Obtain echocardiogram. - Advance Directives Does patient have a Living Will: No Does patient have a Durable POA for Healthcare: No
[2019-06-10 23:56] LABS: Blood Morphology Comment NOT SEEN (NOT SEEN); Platelet Estimate ADEQ
[2019-06-10] MEDS ORDERED: Magnesium Sulfate 2gm IVPB 2 G/50 ML BAG IV ONE (23:58)
[2019-06-10] MEDS ORDERED: ASPIRIN 81 MG CHEWABLE TABLET ONE (23:58)
[2019-06-11 00:17] LABS: Urine Blood 1+ (NEG); Urine Glucose NEGATIVE (NEG); Urine Protein TRACE (NEG); Urine pH 5.5 (5.0-7.0)
[2019-06-11 00:21] LABS: Urine Bacteria <20 /HPF (NONE SEEN)
[2019-06-11 00:22] LABS: Urine Culture Reflex Order REFLEXED
[2019-06-11] MEDS ORDERED: HEPARIN 5000 UNIT/ML 1 ML VIAL SQ SCH (01:11)
[2019-06-11] MEDS ORDERED: ACETAMINOPHEN 500 MG TAB PO PRN (01:11)
[2019-06-11] MEDS ORDERED: ONDANSETRON 4 MG/2 ML VIAL IV PRN (01:11)
[2019-06-11] MEDS ORDERED: ALBUTEROL 2.5 MG/3 ML NEB SOL NEB PRN (01:11)
[2019-06-11 02:01] VITALS: BMI 44.3
[2019-06-11] MEDS: NA CHLORIDE 0.9% 1,000 ML IV SCH ×4 (02:50→22:00)
[2019-06-11 07:04] LABS: Absolute Lymphocytes (CBC) 0.8 K/uL (0.7-4.9); Basophils % 0.2 % (0-1.3); Hematocrit 39.1 % (39.6-49.0); Lymphocytes % 4.2 % (15.3-44.8); MPV 8.5 fL (7.6-11.3); RBC Red Blood Cell Count 4.63 M/uL (4.33-5.43)
[2019-06-11 07:10] LABS: Albumin 3.1 g/dL (3.4-5.0); Bilirubin Total 0.6 mg/dL (0.2-1.0); Magnesium 2.5 mg/dL (1.8-2.4); Phosphorus 2.1 mg/dL (2.5-4.9); Potassium 4.1 mmol/L (3.5-5.1); Protein, Total 7.8 g/dL (6.4-8.2)
[2019-06-11] MEDS: OSELTAMIVIR 75 MG CAP PO SCH ×2 (08:55→21:14)
[2019-06-11] MEDS ORDERED: CEFTRIAXONE/SWI 1gm 1 GM/10 ML SYR IV SCH (09:00)
[2019-06-11] MEDS ORDERED: FAMOTIDINE 20 MG/2 ML VIAL IV SCH (09:00)
[2019-06-11] MEDS ORDERED: AZITHROMYCIN IV 500 MG in NA CHLORIDE 0.9% 250 ML IVPB SCH (09:00)
[2019-06-11] MEDS ORDERED: CEFTRIAXONE 1 GM/NS 50 ML 1 GM/50 ML BAG IV SCH (09:00)
[2019-06-11] MEDS ORDERED: METHYLPREDNISOLONE 40 MG INJ IV SCH (09:00)
[2019-06-11] MEDS ORDERED: ENOXAPARIN 100 MG/ML SYR SQ SCH (09:00)
--- NOTE | 2019-06-11 10:21 | RAD REPORT ---
EXAM DESCRIPTION: RAD - Chest Single View - 06/10/2019 10:15 pm CLINICAL HISTORY: DYSPNEA COMPARISON: Chest Single View dated 05/31/2019; Chest Single View dated 05/15/2017 TECHNIQUE: AP portable chest image was obtained . FINDINGS: Lung volumes are slightly reduced from comparison. No focal lung parenchymal process seen. Trachea is midline. Heart and vasculature are normal. No measurable pleural effusion and no pneumoth orax. No acute bony abnormality seen. No acute aortic findings suspected. IMPRESSION: 1. No acute cardiopulmonary process. 2. No significant change from comparison.
--- NOTE | 2019-06-11 11:17 | RAD REPORT ---
EXAM DESCRIPTION: CT - Chest For Pe Angio - 06/11/2019 2:44 am CLINICAL HISTORY: Cough, fever, dyspnea, dizziness, and headache. COMPARISON: None. TECHNIQUE: Axial CT imaging of the thorax utilizing intravenous contrast. Reformatted multiplanar im ages obtained including reconstructed maximum intensity projection images. This exam was performed according to our departmental dose-optimization program which includes automa bertha exposure control, adjustment of the mA and/or kV according to patient size and/or use of iterativ e reconstruction technique FINDINGS: PULMONARY ARTERIES: Normal caliber main pulmonary artery. Complete evaluation of the pulm onary arteries is very limited due to significant beam hardening artifact from the strongly opacified superior vena cava. There are several intraluminal hypodensities within the right and left periphera l pulmonary arteries. Many are due to the streak artifacts. There are a few, particularly seen on ser ies 401 axial image 80 in the right lower lobe, axial image 68 in the lingula, and left upper lobe ax ial image 41. There is no evidence of right heart strain. HEART/GREAT VESSELS: Heart is mildly enlarged. Minimal caliber thoracic aorta. Normal branch pattern of the arch vessels. MEDIASTINUM/ADELIA: Nonenlarged mediastinal lymph nodes. Normal central airways. Normal esophagus. LUNGS/PLEURA: Small irregular densities in the the posterior medial right lower lobe. There is no pl eural fluid. No pneumothorax. No edema. Mild left lower lobe atelectasis. CHEST WALL/SOFT TISSUES: Unremarkable included thyroid. No axillary adenopathy. Intact sternum. Endp late Schmorl's nodes in the thoracic spine are present. Unremarkable remaining bony thorax. UPPER ABDOMEN: The included liver, spleen, adrenal glands, superior right kidney appear normal. Smal l hiatal hernia. Minimal distal esophageal thickening may be due to esophagitis or secondary to the h ernia. IMPRESSION: 1. There are very small pulmonary emboli are suspected bilaterally. No evidence of right heart strain. 2. Posterior medial right lower lobe opacities could be due to pneumonitis, atelectasis, or small per ipheral pulmonary infarcts. 3. Small hiatal hernia. Distal esophageal thickening may be secondary to the hiatal hernia or esophag itis. Electronically signed by: Ayana Webster DO 06/11/2019 1:36 AM ORDNANCE TECHNICIAN Due to temporary technical issues with the PACS/Fluency reporting system, reports are being signed by the in house radiologist as a courtesy to ensure prompt reporting. The interpreting radiologist is f ully responsible for the content of the report.
--- NOTE | 2019-06-11 11:21 | P.CNS ---
Date of Consult: 06/11/19 Chief Complaint: Pulmonary embolism history of asthma History of Present Illness: Patient is 33 years of age history of poorly controlled asthma patient has no insurance uses albuterol on a p.r.n. basis/he is not seeing a physician admitted from the emergency department with weakness malaise and fever he was here a week ago diagnosed with influenza was discharged on Tamiflu became worse again more shortness of breath and a fever renal function is worse CT scan showed bilateral pulmonary emboli on his last visit to the emergency to his influenza A-positive denies any cough sputum hemoptysis Allergies No Known Drug Allergies Allergy (Verified 06/11/19 02:01) Unknown No Known Allergies Allergy (Uncoded 05/15/17 07:56) Unknown Home Medications: Albuterol Sulfate [Proair Hfa] 1 puff IH Q6HP PRN 06/11/19 - Past Medical/Surgical History Diabetic: No -: Asthma - Family History Mother Medical History: Heart disease - Social History Smoking Status: Never smoker Alcohol use: No CD- Drugs: No Place of Residence: Home Review of Systems General: Weakness Respiratory: Cough, Shortness of Breath Physical Examination Temp Pulse Resp BP Pulse Ox 96.9 F 88 18 171/94 H 93 06/11/19 08:00 06/11/19 08:00 06/11/19 08:00 06/11/19 08:00 06/11/19 08:00 General: Alert, In no apparent distress, Oriented x3 Respiratory: Clear to auscultation bilaterally Cardiovascular: No edema, Regular rate/rhythm, Normal S1 S2 Gastrointestinal: Normal bowel sounds, Soft and benign Laboratory Data (last 24 hrs) 06/10/19 22:22: Sodium 135 L, Potassium 3.6, BUN 12, Creatinine 1.74 H, Glucose 98, Magnesium 1.5 L, Total Bilirubin 1.0, AST 21, ALT 20, Alkaline Phosphatase 89, Amylase 107, Lipase 189 06/10/19 22:20: PT 15.1 H, INR 1.29, APTT 31.4 06/10/19 22:20: WBC 20.9 H* D, Hgb 12.9 L, Hct 40.4, Plt Count 390 - Problems (1) Pulmonary embolism Current Visit: Yes Status: Acute Plan: Patient is 33 years of age admitted with worsening dyspnea recent history of influenza a bilateral pulmonary embolism patient does not have any insurance change to p.o. warfarin patient has renal insufficiency patient's white count is elevated possible need due to steroid abnormal renal function may be due to hypertension renal ultrasound ordered continue with IV fluids (2) Acute asthma exacerbation Current Visit: No Status: Acute Plan: Patient has a history of asthma uses albuterol 0 0 control he will need long- acting bronchodilators including inhale steroids of started patient on Dulera which she can go home on in addition to low-dose prednisone follow up with me in 2 weeks Qualifiers: Asthma severity: unspecified severity Asthma persistence: persistent Qualified Code(s): J45.901 - Unspecified asthma with (acute) exacerbation (3) Acute kidney injury Current Visit: No Status: Acute Plan: Patient also has renal failure ultrasound of the kidneys
[2019-06-11] MEDS ORDERED: WARFARIN SODIUM 5 MG TAB PO ONE (11:22)
[2019-06-11] MEDS: DULERA 200/5 (MOMETASONE/FORMOTEROL) INHALER IH SCH ×2 (12:22→21:15)
[2019-06-11] MEDS: ALBUTEROL 2.5 MG/3 ML NEB SOL NEB SCH ×2 (14:10→19:50)
--- NOTE | 2019-06-11 15:11 | ECHO ---
HEIGHT: 5 ft 8 in WEIGHT: 291 lb 6.4 oz DATE OF STUDY: 06/11/[address]: iker neely 2-DIMENSIONAL: YES M.MODE: YES DOPPLER: YES COLOR FLOW: YES TDS: NO PORTABLE: NO DEFINITY: NO BUBBLE STUDY: NO DIAGNOSIS: PLEURAL EFFUSION CARDIAC HISTORY: CATHERIZATION: NO SURGERY: NO PROSTHETIC VALVE: NO PACEMAKER: NO MEASUREMENTS (cm) DIASTOLIC (NORMALS) SYSTOLIC (NORMALS) IVSd 1.5 (0.6-1.2) LA Diam 3.5 (1.9-4.0) LVEF 59% LVIDd 4.9 (3.5-5.7) LVIDs 3.4 (2.0-3.5) %FS 31% LVPWd 1.4 (0.6-1.2) Ao Diam 2.8 (2.0-3.7) 2 DIMENSIONAL ASSESSMENT: RIGHT ATRIUM: NORMAL LEFT ATRIUM: NORMAL RIGHT VENTRICLE: NORMAL LEFT VENTRICLE: NORMAL TRICUSPID VALVE: NORMAL MITRAL VALVE: NORMAL PULMONIC VALVE: NORMAL AORTIC VALVE: NORMAL PERICARDIAL EFFUSION: NONE AORTIC ROOT: NORMAL LEFT VENTRICULAR WALL MOTION: NORMAL. DOPPLER/COLOR FLOW: TRACE OF AORTIC REGURGITATION. COMMENTS: NORMAL 2D ECHO WITH DOPPLER. TRACE OF AORTIC REGURGITATION. TECHNOLOGIST: ALESHIA LEYVA
--- NOTE | 2019-06-11 15:55 | PN ---
Date of Progress Note: 06/11/2019 Subjective: Patient is seen and examined. Chart reviewed and case discussed with RN and Dr. Que arana. Patient still having some cough. States his wheezing is slightly better. Medications: List reviewed. Physical Examination: Vital Signs: Temperature 96.9, heart rate 88, blood pressure 171/94, respirations 18, O2 saturation 93% on room air. General: Awake, alert, oriented x3. Morbidly obese male. CV: S1, S2. Sinus tachycardia. Peripheral pulses present. Respiratory: Diminished breath sounds. Wheezing heard. Patient is slightly tachypneic. No use of accessory muscles. Gastrointestinal: Abdomen is soft, nontender, nondistended. Positive bowel sounds. Extremities: No clubbing, cyanosis, or edema. Neurologic: Nonfocal. Laboratory Data: WBC 19.4, H and H of 12.4 and 39.1, platelets 398, neutrophils 94%. Sodium 139, po tassium 4.1, chloride 110, CO2 of 24, BUN 13, creatinine 1.42, glucose 168, calcium 8, phosphorus 2.1 , magnesium 2.5, albumin 3.1. Hypercoagulable workup pending. Culture is also pending. CT angio ch est shows very small pulmonary emboli suspected bilaterally. No evidence of right heart strain. Pos teromedial right lower lobe opacities could be due to pneumonitis, atelectasis, or small peripheral p ulmonary infarcts, small hiatal hernia. Assessment: 33-year-old male with: 1.Sepsis secondary to pneumonia, right lower lobe. Patient is tachycardic, tachypneic. White blood cell count still very elevated at 19,000. Patient is on antibiotics. Cultures are pending. 2.Influenza A. Continue Tamiflu, droplet precautions. 3.Elevated troponin level likely due to PE and heart strain. We will follow up with the echocardiog maximo. 4.Pulmonary embolism. Multiple small bilateral PEs. Patient is uninsured, will need to be transiti oned to Coumadin. Appreciate Pulmonology input. 5.Acute asthma exacerbation. Continue with nebulizer treatments and steroids. Add long-acting inha ler. 6.Morbid obesity, BMI of 44. 7.Deep venous thrombosis prophylaxis. Patient is on Lovenox. This seems to be an unprovoked PE. W e will also obtain Doppler sonogram. Plan: Discharge in the next 48 to 72 hours once INR is therapeutic and clinically stable. /JEISON Voice ID: [id number] Report ID: [id number]
--- NOTE | 2019-06-11 16:59 | RAD REPORT ---
EXAM DESCRIPTION: US - Extrem Venous W Compress [place] - 06/11/2019 4:50 pm CLINICAL HISTORY: ro dvt Bilateral leg edema and swelling. COMPARISON: No comparisons TECHNIQUE: Real-time sonographic interrogation of the left and right lower extremity deep venous sys tems was performed. FINDINGS: Normal compressibility, flow augmentation, phasic flow and spontaneous flow is identified in both the left and right lower extremity deep venous systems. IMPRESSION: No sonographic evidence of left or right lower extremity deep venous thrombosis.
--- NOTE | 2019-06-11 17:06 | RAD REPORT ---
EXAM DESCRIPTION: US - Renal Ultrasound-Complete - 06/11/2019 4:50 pm CLINICAL HISTORY: Renal failure Flank pain COMPARISON: No comparisons FINDINGS: Both kidneys are mildly echogenic. The right kidney measures 13.5 x 6.5 x 5.3 cm. No hydronephrosis, focal mass or perinephric fluid. The left kidney measures 13.5 x 6.6 x 6.2 cm. No hydronephrosis, focal mass or perinephric fluid. The urinary bladder is incompletely distended without gross abnormality seen. IMPRESSION: Mildly echogenic kidneys suggesting mild medical renal disease.
[2019-06-11] MEDS: predniSONE 20 MG TAB PO SCH (21:14)
[2019-06-11 21:38] LABS: RPR (Rapid Plasma Reagin) NON-REACT (NON-REACT)
[2019-06-12] MEDS: ALBUTEROL 2.5 MG/3 ML NEB SOL NEB SCH ×4 (01:35→19:30)
[2019-06-12 04:49] LABS: Protime INR 1.12
[2019-06-12 04:52] LABS: Absolute Lymphocytes (CBC) 1.4 K/uL (0.7-4.9); Basophils % 0.1 % (0-1.3); Hematocrit 35.9 % (39.6-49.0); Lymphocytes % 3.6 % (15.3-44.8); MPV 8.6 fL (7.6-11.3); RBC Red Blood Cell Count 4.24 M/uL (4.33-5.43)
[2019-06-12 04:56] LABS: Potassium 3.7 mmol/L (3.5-5.1)
[2019-06-12] MEDS ORDERED: POTASSIUM 25 MEQ EFFERV TAB PO ONE (05:15)
[2019-06-12] MEDS: NA CHLORIDE 0.9% 1,000 ML IV SCH (08:00)
[2019-06-12 08:06] LABS: Blood Morphology Comment NOT SEEN (NOT SEEN); Platelet Estimate ADEQ
[2019-06-12] MEDS: DULERA 200/5 (MOMETASONE/FORMOTEROL) INHALER IH SCH ×2 (09:00→20:38)
[2019-06-12] MEDS ORDERED: Levofloxacin 750mg IV 750 MG/150 ML BAG IV SCH (09:00)
[2019-06-12] MEDS ORDERED: AZITHROMYCIN 250 MG TAB PO SCH (09:00)
[2019-06-12] MEDS: OSELTAMIVIR 75 MG CAP PO SCH ×2 (10:04→20:35)
[2019-06-12] MEDS: predniSONE 20 MG TAB PO SCH ×2 (10:04→20:35)
[2019-06-12] MEDS: levoFLOXacin 500 MG TAB PO SCH (10:05)
[2019-06-12] MEDS ORDERED: WARFARIN SODIUM 5 MG TAB PO SCH (17:00)
--- NOTE | 2019-06-12 17:01 | PN ---
Date of Progress Note: 06/12/2019 Subjective: Patient is seen and examined. Chart reviewed and case discussed with RN and Dr. Oneal. Patient wanting to leave. I explained to him that he is in a very serious condition with a white count of 14,000 almost. Has bilateral pulmonary embolism and subtherapeutic INR as he is now currently being bridged with Lovenox. He is not in any shape to go home. He understands , still concerned and wanting to leave as early as tomorrow. Explained him that is not safe. Encourage him to contact his sister who is also in the medical field and on whom which he relies for advice. Medications: List reviewed. Physical Examination: Vital Signs: Temperature 97, heart rate 110, blood pressure 164/94, respirations 18, O2 of 97% on room air. General: Awake, alert, oriented x3. Morbidly obese male, in some mild distress. CV: S1, S2. Regular rate and rhythm. Patient is tachycardic. Peripheral pulses are present. Respiratory: Moving air well bilaterally. Minimal wheezing. No stridor. Gastrointestinal: Abdomen is soft, nontender, nondistended. Positive bowel sounds. Extremities: No clubbing, cyanosis, or edema. Neurologic: Nonfocal. Laboratory Data: Sodium 143, potassium 3.7, chloride 113, CO2 of 24, BUN 15, creatinine 1.28, glucose 151, lactate 1.6, calcium 8.2. Procalcitonin 1.28. WBC 38.7, H and H of 11.4 and 35.9, platelets 388, neutrophils 93%. Blood culture showed no growth. Urine culture, no growth to date. Echocardiogram shows EF of 59%, trace aortic regurg. Assessment: 33-year-old male with: 1. Sepsis secondary to pneumonia, right lower lobe. Antibiotics have been discontinued by Pulmonology. Restart Levaquin. White count trending up to 38, 000. This might be some component of steroid-induced leukocytosis, however, it is unlikely. Procalcitonin is still elevated. Lactate is negative. Cultures are negative to date, still less than 48 hours out. 2. Influenza A. We will continue Tamiflu, droplet precautions. 3. Elevated troponin level secondary to pulmonary embolism and heart strain. Continue with symptomatic treatment. Echocardiogram shows normal ejection fraction. 4. Pulmonary embolism. Multiple small bilateral pulmonary embolisms. Continue Coumadin and bridge with Lovenox. Patient unable to afford novel. Direct oral anticoagulants. 5. Acute asthma exacerbation, mild, persistent. We will continue with nebulizer treatments. Steroids have been weaned down. Continue with long- acting inhalers. 6. Morbid obesity, BMI 44. Plan: Discharged once INR is in therapeutic range and clinically better from his PE and pneumonia standpoint. /JEISON Voice ID: [id number] Report ID: [id number] MTDD
[2019-06-13] MEDS: ALBUTEROL 2.5 MG/3 ML NEB SOL NEB SCH ×4 (01:43→20:20)
[2019-06-13 06:11] LABS: Absolute Lymphocytes (CBC) 2.3 K/uL (0.7-4.9); Basophils % 0.1 % (0-1.3); Hematocrit 33.2 % (39.6-49.0); Lymphocytes % 9.5 % (15.3-44.8); RBC Red Blood Cell Count 3.98 M/uL (4.33-5.43)
[2019-06-13 06:26] LABS: Protime INR 1.18
[2019-06-13 06:29] LABS: BUN Blood Urea Nitrogen 12 mg/dL (7-18); Bicarbonate 26 mmol/L (21-32); Glucose Level 104 mg/dL (74-106); Sodium Level 142 mmol/L (136-145)
[2019-06-13] MEDS ORDERED: ALPRAZOLAM 0.25 MG TABLET PO PRN (08:58)
[2019-06-13] MEDS: DULERA 200/5 (MOMETASONE/FORMOTEROL) INHALER IH SCH ×2 (09:00→21:04)
[2019-06-13] MEDS: OSELTAMIVIR 75 MG CAP PO SCH ×3 (09:00→21:00)
[2019-06-13] MEDS: levoFLOXacin 500 MG TAB PO SCH (09:32)
[2019-06-13] MEDS: predniSONE 20 MG TAB PO SCH ×2 (09:32→21:03)
[2019-06-13] MEDS: HYDRALAZINE HCL 20 MG/ML VIAL IV PRN ×2 (11:53→15:52)
--- NOTE | 2019-06-13 12:29 | PN ---
Date of Progress Note: 06/13/2019 Subjective: Patient is seen and examined. Chart reviewed and case discussed with RN and mother at the bedside. Patient states that he is feeling anxious and feels "weird." States that he does not want to take the Tamiflu anymore. This is making him feel worse. Patient was given Tamiflu previously and completed course when he was in the ER. Medications: List reviewed. Physical Examination: Vital Signs: Temperature 97.4, heart rate 87, blood pressure 175/103, respirations 20, O2 96% on room air. General: Awake, alert, oriented x3. Morbidly obese male in some mild distress. CV: S1, S2. Regular rate and rhythm. Peripheral pulses present. Respiratory: Moving air well bilaterally. No wheezing or stridor. No use of accessory muscles. Gastrointestinal: Abdomen is soft, nontender, nondistended. Positive bowel sounds. Extremities: No clubbing, cyanosis, or edema. Neurologic: Nonfocal. Psych: Mood is somewhat dysphoric. Affect is congruent with mood. Insight and judgment are fair. Laboratory Data: Sodium 142, potassium 4, chloride 111, CO2 of 26, BUN 12, creatinine 1, glucose 104, calcium 8.1. WBC 24.7, H and H 10.7 and 33.2, platelets 364, neutrophils 85%. INR is 1.18. Blood cultures, no growth to date. Urine culture, no growth, final. Assessment: 33-year-old male with: 1. Sepsis secondary to pneumonia, right lower lobe. Continue Levaquin. White blood cell count is improving. Procalcitonin is still elevated. Cultures are no growth preliminarily. 2. Influenza A. Patient refusing Tamiflu. 3. Elevated troponin level secondary to pulmonary embolism and heart strain. Continue with symptomatic treatment. No changes on echo. 4. Pulmonary embolism, small bilateral. We will continue with Coumadin. We will adjust dose to 7.5 tonight. INR is still 1.18. Continue Lovenox. 5. Acute asthma exacerbation, mild, persistent. We will continue with nebulizer treatments. Wean steroids. Continue with Dulera. 6. Morbid obesity. BMI 44, counseled. 7. Adjustment disorder with anxious mood. We will start on Xanax p.r.n. Consider psych consultation in a.m. No psych billable on the weekend. 8. Disposition. Discharge home once INR is in therapeutic range. /JEISON Voice ID: [id number] Report ID: [id number] EVA
[2019-06-13] MEDS: WARFARIN SODIUM 7.5 MG TAB PO SCH (17:00)
[2019-06-13] MEDS: WARFARIN SODIUM 2.5 MG TAB ONE ×2 (17:09→17:10)
[2019-06-14] MEDS: ALBUTEROL 2.5 MG/3 ML NEB SOL NEB SCH ×4 (01:15→20:05)
[2019-06-14 06:06] LABS: Absolute Lymphocytes (CBC) 2.1 K/uL (0.7-4.9); Basophils % 0.3 % (0-1.3); Hematocrit 35.2 % (39.6-49.0); Lymphocytes % 10.5 % (15.3-44.8); MPV 8.4 fL (7.6-11.3); Protime INR 1.33; RBC Red Blood Cell Count 4.17 M/uL (4.33-5.43)
[2019-06-14 06:16] LABS: BUN Blood Urea Nitrogen 12 mg/dL (7-18); Bicarbonate 27 mmol/L (21-32); Glucose Level 98 mg/dL (74-106); Magnesium 2.4 mg/dL (1.8-2.4); Phosphorus 3.8 mg/dL (2.5-4.9); Sodium Level 141 mmol/L (136-145)
[2019-06-14] MEDS: OSELTAMIVIR 75 MG CAP PO SCH ×2 (09:00→19:58)
[2019-06-14] MEDS: DULERA 200/5 (MOMETASONE/FORMOTEROL) INHALER IH SCH ×2 (09:04→19:58)
[2019-06-14] MEDS: predniSONE 20 MG TAB PO SCH ×2 (09:04→19:57)
[2019-06-14] MEDS: levoFLOXacin 500 MG TAB PO SCH (09:04)
--- NOTE | 2019-06-14 09:27 | EKG ---
Test Date: 2019-06-10 Test Time: 22:37:21 Ged Teacher: RR MEASUREMENT RESULTS: Intervals: Rate: 140 CO: 144 QRSD: 82 QT: 262 QTc: 399 Desdemona: P: 65 CO: 144 QRS: -4 T: 29 INTERPRETIVE STATEMENTS: Sinus tachycardia Otherwise normal ECG Compared to ECG 01/29/2000 16:02:00 No significant changes Electronically Signed On 06-14-19 09:26:47 BOTTLE SORTER by Miguel Khan
[2019-06-14] MEDS: HYDRALAZINE HCL 20 MG/ML VIAL IV PRN (09:56)
[2019-06-14] MEDS: AMLODIPINE 10 MG TAB PO SCH (11:37)
[2019-06-14] MEDS ORDERED: WARFARIN SODIUM 2.5 MG TAB ONE (14:54)
--- NOTE | 2019-06-14 15:52 | PN ---
Date of Progress Note: 06/14/2019 Subjective: Patient seen and examined. Chart reviewed and case discussed with RN. Patient is doing better. Counseled regarding Coumadin, dietary restrictions. Medication List: Reviewed. Physical Examination: Vital Signs: Temperature 97.1, heart rate 89, blood pressure 164/100, respirations 17, O2 of 97% on room air. General: Awake, alert, oriented x3. Morbidly obese male, not in any acute distress. CV: S1, S2. Regular rate and rhythm. Respiratory: Moving air well bilaterally. No wheezing or stridor. No use of accessory muscles. Gastrointestinal: Abdomen is soft, nontender, nondistended. Positive bowel sounds. No guarding or rigidity. Extremities: No clubbing, cyanosis, or edema. Neurologic: Nonfocal. Laboratory Data: Sodium 141, potassium 4, chloride 109, CO2 of 27, BUN 12, creatinine 1.10, glucose 98, calcium 8.3. Phosphorus 3.8, magnesium 2.4. WBC 20.1, H and H 11.4 and 35.2, platelets 409, geraldine trophils 81%. INR is 1.33. Assessment: A 33-year-old male with: 1.Sepsis secondary to pneumonia, right lower lobe. Continue with Levaquin. WBC count is trending d own, however, slowly. Does not appear to be septic at this time. No further tachycardia, improved. Procalcitonin trending down slowly. Cultures show no growth to date. 2.Influenza A. Patient was treated with Tamiflu initially. Had a previous ER visit, was placed on Tamiflu prophylactically. Currently, he is refusing. No high fevers. No myalgias. Doubt any linge ring flu at this time. 3.Elevated troponin level secondary to pulmonary embolism and heart strain, stable. Echo is normal. 4.Pulmonary embolism, small, bilateral. Continue with Coumadin. Dose has been increased to 7.5 mg. INR is improving to 1.33. Continue bridging with Lovenox. 5.Acute asthma exacerbation, mild, persistent. Continue with nebulizer treatments and Dulera. Appr eciate Pulmonology input. 6.Adjustment disorder with anxious mood. Continue with Xanax p.r.n. 7.Morbid obesity. BMI of 44. Counseled. 8.Disposition. Discharge home once INR is therapeutic. Patient will need to follow up with PCP as he is unfit and he may need to go to [facility] for INR checks. /JEISON Voice ID: [id number] Report ID: [id number]
[2019-06-14] MEDS: WARFARIN SODIUM 7.5 MG TAB PO SCH (16:33)
[2019-06-14] MEDS: Enoxaparin 120 MG/0.8 ML SYR SQ SCH (17:15)
[2019-06-15] MEDS: ALBUTEROL 2.5 MG/3 ML NEB SOL NEB SCH ×3 (01:58→14:35)
[2019-06-15] MEDS: Enoxaparin 120 MG/0.8 ML SYR SQ SCH ×2 (05:31→17:07)
[2019-06-15 05:50] LABS: Potassium 4.2 mmol/L (3.5-5.1)
[2019-06-15 06:06] LABS: Protime INR 1.81
[2019-06-15] MEDS: AMLODIPINE 10 MG TAB PO SCH (08:25)
[2019-06-15] MEDS: levoFLOXacin 500 MG TAB PO SCH (08:25)
[2019-06-15] MEDS: predniSONE 20 MG TAB PO SCH (08:26)
[2019-06-15] MEDS: DULERA 200/5 (MOMETASONE/FORMOTEROL) INHALER IH SCH (08:26)
[2019-06-15] MEDS: OSELTAMIVIR 75 MG CAP PO SCH (08:27)
[2019-06-15 11:00] VITALS: O2SAT 98
--- NOTE | 2019-06-15 12:47 | P.PN ---
Subjective Date of Service: 06/15/19 Primary Care Provider: none Chief Complaint: Pulmonary embolism history of asthma Subjective: Improving, Doing well Physical Examination - Vital Signs Temperature: 97.3 F Blood Pressure: 147/95 Pulse: 92 Respirations: 18 Pulse Ox (%): 97 - Physical Exam General: Alert, In no apparent distress, Oriented x3, Cooperative HEENT: Atraumatic Neck: Supple Respiratory: Clear to auscultation bilaterally, Normal air movement Cardiovascular: Normal pulses, Regular rate/rhythm Gastrointestinal: Normal bowel sounds, Soft and benign, Non-distended Musculoskeletal: No erythema, No tenderness, No warmth Integumentary: No erythema, No warmth, No cyanosis Neurological: Normal speech, Normal strength at 5/5 x4 extr, Normal tone, Normal affect - Studies Medications List Reviewed: Yes Assessment & Plan Discharge Plan: Home Plan to discharge in: 24 Hours Physician Review Additional Text: Impression: Sepsis secondary to right lower lobe pneumonia Small bilateral pulmonary embolism Influenza A Asthma exacerbation HTN Plan: Sepsis secondary to right lower lobe pneumonia: Patient is improved. INR still not therapeutic. Currently on Coumadin. Once INR therapeutic then will plan for discharge. Pulmonology plans to follow up on INR closely. Continue with antibiotic. Will also continue with asthma medication. Small bilateral pulmonary embolism: Will recheck INR later today to see if INR above 2.0. If so patient can be discharged home with Coumadin. Patient will need follow up with INR with pulmonology. Influenza A: Patient refused medication. Asthma exacerbation: Continue with medication. HTN: Continue blood pressure medication. Time Spent Managing Pts Care (In Minutes): 55
--- NOTE | 2019-06-15 14:21 | RAD REPORT ---
EXAM DESCRIPTION: RAD - Chest Pa And Lat (2 Views) - 06/15/2019 2:10 pm CLINICAL HISTORY: Follow up pneumonia/PE Chest pain. COMPARISON: Chest Single View dated 06/10/2019; Chest Single View dated 05/31/2019; Chest Single View d ated 05/15/2017; CHEST PA AND LAT 2 VIEW dated 05/10/2014; Chest For Pe Angio dated 06/11/2019 FINDINGS: The lungs are clear. The is normal in size. No displaced fractures. IMPRESSION: No acute or concerning finding suspected.
[2019-06-15 15:19] LABS: Protime INR 1.65
[2019-06-15] MEDS: WARFARIN SODIUM 7.5 MG TAB PO SCH (16:38)
[2019-06-15 18:04] VITALS: BP 145/89; TEMP 97.9
--- NOTE | 2019-06-15 18:26 | P.DS ---
Admission Date: 06/11/19 Discharge Date: 06/15/19 Primary Care Provider: none Disposition: ROUTINE DISCHARGE Discharge Condition: GOOD Reason for Admission: Pulmonary embolism history of asthma Consultations: Pulmonary-Dr. Oneal Procedures: CT Scan: FINDINGS: PULMONARY ARTERIES: Normal caliber main pulmonary artery. Complete evaluation of the pulmonary arteries is very limited due to significant beam hardening artifact from the strongly opacified superior vena cava. There are several intraluminal hypodensities within the right and left peripheral pulmonary arteries. Many are due to the streak artifacts. There are a few, particularly seen on series 401 axial image 80 in the right lower lobe, axial image 68 in the lingula, and left upper lobe axial image 41. There is no evidence of right heart strain. HEART/GREAT VESSELS: Heart is mildly enlarged. Minimal caliber thoracic aorta. Normal branch pattern of the arch vessels. MEDIASTINUM/ADELIA: Nonenlarged mediastinal lymph nodes. Normal central airways. Normal esophagus. LUNGS/PLEURA: Small irregular densities in the the posterior medial right lower lobe. There is no pleural fluid. No pneumothorax. No edema. Mild left lower lobe atelectasis. CHEST WALL/SOFT TISSUES: Unremarkable included thyroid. No axillary adenopathy. Intact sternum. Endplate Schmorl's nodes in the thoracic spine are present. Unremarkable remaining bony thorax. UPPER ABDOMEN: The included liver, spleen, adrenal glands, superior right kidney appear normal. Small hiatal hernia. Minimal distal esophageal thickening may be due to esophagitis or secondary to the hernia. IMPRESSION: 1. There are very small pulmonary emboli are suspected bilaterally. No evidence of right heart strain. 2. Posterior medial right lower lobe opacities could be due to pneumonitis, atelectasis, or small peripheral pulmonary infarcts. 3. Small hiatal hernia. Distal esophageal thickening may be secondary to the hiatal hernia or esophagitis. Follow up CXR: COMPARISON: Chest Single View dated 06/10/2019; Chest Single View dated 05/31/2019 ; Chest Single View dated 05/15/2017; CHEST PA AND LAT 2 VIEW dated 05/10/2014; Chest For Pe Angio dated 06/11/2019 FINDINGS: The lungs are clear. The is normal in size. No displaced fractures. IMPRESSION: No acute or concerning finding suspected. Echocardiogram: Ejection fraction 59% LEFT VENTRICULAR WALL MOTION: NORMAL. DOPPLER/COLOR FLOW: TRACE OF AORTIC REGURGITATION. COMMENTS: NORMAL 2D ECHO WITH DOPPLER. TRACE OF AORTIC REGURGITATION. Medical problem list: Sepsis secondary to right lower lobe pneumonia complicated with Small bilateral pulmonary embolism Recent Influenza A Asthma exacerbation HTN GERD with hiatal hernia Brief History of Present Illness: 33-year-old male presented to emergency room with fever, body aches and chills. Patient was seen 1 week prior in the emergency room for influenza a. He had been given Tamiflu. Symptoms persisted. The patient was further evaluated and found to have pulmonary embolism bilateral. Patient was admitted for further treatment and evaluation. Hospital Course: Patient presented with shortness of breath found to have pneumonia complicated with bilateral pulmonary emboli. Patient was treated with medication. Patient improved. Patient seen and evaluated by pulmonology. Echocardiogram shows no cardiac strain. At discharge patient will continue with Eliquis 10 mg twice daily for 7 days then 5 mg twice daily for 3-6 months. Patient will also continue with Levaquin 500 mg daily for 3 more days. Patient will follow up with pulmonology in 1-2 weeks to follow up this hospitalization and continue his care. Prior to discharge patient was able to get coupons and assistance with for Eliquis through [employer] web site. Patient has underlying asthma. At discharge patient will continue with Dulera 2 puffs twice daily and Pro air 2 puffs 3 times a day as needed for shortness of breath. Recommend follow up with pulmonology to further monitor. Patient has underlying hypertension. Medication includes the Norvasc 10 mg daily. This will be continued at discharge. Maintain blood pressure less 150/ 80. Further adjustment can be done by his PCP. CT scan also revealed some esophagitis with hiatal hernia. Patient likely with GERD and hiatal hernia. At discharge patient will continue with Protonix 40 mg daily. Will recommend GI consultation after treatment of pulmonary embolism has completed. GERD/hiatal hernia. Education was provided. Vital Signs/Physical Exam: Temp Pulse Resp BP Pulse Ox 97.9 F 108 H 18 145/89 H 97 06/15/19 16:00 06/15/19 16:00 06/15/19 16:00 06/15/19 16:06/15/19 16:00 General: Alert, In no apparent distress, Oriented x3, Cooperative HEENT: Atraumatic Neck: Supple Respiratory: Clear to auscultation bilaterally, Normal air movement Cardiovascular: Normal pulses, Regular rate/rhythm Gastrointestinal: Normal bowel sounds, Soft and benign, Non-distended, No tenderness, No masses, No rebound, No guarding Musculoskeletal: No erythema, No tenderness, No warmth Integumentary: No tenderness/swelling, No erythema, No warmth, No cyanosis Neurological: Normal speech, Normal strength at 5/5 x4 extr, Normal tone, Normal affect Laboratory Data at Discharge: WBC 20.1 K/uL (4.3-10.9) H* D 06/14/19 05:25 Hgb 11.4 g/dL (13.6-17.9) L 06/14/19 05:25 Hct 35.2 % (39.6-49.0) L 06/14/19 05:25 Plt Count 409 K/uL (152-406) H 06/14/19 05:25 PT 19.1 SECONDS (9.5-12.5) H 06/15/19 15:04 INR 1.65 06/15/19 15:04 APTT 31.4 SECONDS (24.3-36.9) 06/10/19 22:20 Sodium 140 mmol/L (136-145) 06/15/19 05:11 Potassium 4.2 mmol/L (3.5-5.1) 06/15/19 05:11 BUN 16 mg/dL (7-18) 06/15/19 05:11 Creatinine 1.25 mg/dL (0.55-1.3) 06/15/19 05:11 Glucose 104 mg/dL (74-106) 06/15/19 05:11 Phosphorus 3.8 mg/dL (2.5-4.9) D 06/14/19 05:25 Magnesium 2.4 mg/dL (1.8-2.4) 06/14/19 05:25 Total Bilirubin 0.6 mg/dL (0.2-1.0) 06/11/19 06:07 AST 18 U/L (15-37) 06/11/19 06:07 ALT 20 U/L (12-78) 06/11/19 06:07 Alkaline Phosphatase 86 U/L (45-117) 06/11/19 06:07 Troponin I 0.02 ng/mL (0.0-0.045) 06/11/19 21:32 Triglycerides 114 mg/dL (<150) 06/11/19 06:07 Cholesterol 182 mg/dL (<200) 06/11/19 06:07 HDL Cholesterol 38 mg/dL (40-60) L 06/11/19 06:07 Cholesterol/HDL Ratio 4.79 06/11/19 06:07 Amylase 107 U/L (25-115) 06/10/19 22:22 Lipase 189 U/L (73-393) 06/10/19 22:22 Home Medications: Albuterol Sulfate [Proair Hfa] 2 puff IH TID PRN #1 hfa.aer.ad 06/15/19 Amlodipine [Norvasc*] 10 mg PO DAILY #30 tab 06/15/19 Mometasone/Formoterol [Dulera 200 Mcg/5 Mcg Inhaler] 2 puff IH BID #1 inhaler Pantoprazole [Protonix Tab] 40 mg PO DAILY #30 tab 06/15/19 levoFLOXacin [Levaquin*] 500 mg PO DAILY #3 tab 06/15/19 New Medications: Albuterol Sulfate [Proair Hfa] 2 puff IH TID PRN #1 hfa.aer.ad PRN Reason: Shortness Of Breath Amlodipine [Norvasc*] 10 mg PO DAILY #30 tab levoFLOXacin [Levaquin*] 500 mg PO DAILY #3 tab Mometasone/Formoterol [Dulera 200 Mcg/5 Mcg Inhaler] 2 puff IH BID #1 inhaler Pantoprazole [Protonix Tab] 40 mg PO DAILY #30 tab Patient Discharge Instructions: 1. Patient will follow up with a PCP within 1- 2 weeks to follow up this hospitalization. 2. Patient presented with shortness of breath found to have pneumonia complicated with bilateral pulmonary emboli. Patient was treated with medication. Patient improved. Patient seen and evaluated by pulmonology. Echocardiogram shows no cardiac strain. At discharge patient will continue with Eliquis 10 mg twice daily for 7 days then 5 mg twice daily for 3-6 months. Patient will also continue with Levaquin 500 mg daily for 3 more days. Patient will follow up with pulmonology in 1-2 weeks to follow up this hospitalization and continue his care. 3. Patient has underlying asthma. At discharge patient will continue with Dulera 2 puffs twice daily and Pro air 2 puffs 3 times a day as needed for shortness of breath. Recommend follow up with pulmonology to further monitor. 4. Patient has underlying hypertension. Medication includes the Norvasc 10 mg daily. This will be continued at discharge. Maintain blood pressure less 150/ 80. Further adjustment can be done by his PCP. 5. CT scan also revealed some esophagitis with hiatal hernia. Patient likely with GERD and hiatal hernia. At discharge patient will continue with Protonix 40 mg daily. Will recommend GI consultation after treatment of pulmonary embolism has completed. GERD/ hiatal hernia. Education was provided. Diet: AHA Activity: Ad ferny Time spent managing pt's care (in minutes): 55
[2019-06-15 22:57] LABS: Albumin, (SPE) 3.5 g/dL (3.8-4.8); Alpha-1-Globulins 0.4 g/dL (0.2-0.3); Alpha-2-Globulins 0.8 g/dL (0.5-0.9); Gamma Globulins 1.4 g/dL (0.8-1.7); INTERPRETATION REPORT
[2019-06-16 10:12] LABS: Protein C Antigen 73 % (70-140)
[2019-06-17 08:17] LABS: Prothrombin Gene Analysis Test REPORT
== END 2019-06-15 20:47 | disposition home or self-care (01) | DRG 871 ==
LOC: ER 21:46 → ERHOLD 06-11 00:01 → 2ND 06-11 01:09
PROVIDERS: ADMIT Internal Medicine; ATTEND Internal Medicine
DX: A41.9 Sepsis, unspecified organism (principal); J11.00 Influenza due to unidentified influenza virus with unspecified type of pneumonia; J18.9 Pneumonia, unspecified organism; I26.99 Other pulmonary embolism without acute cor pulmonale; Z68.41 Body mass index [BMI] 40.0-44.9, adult; J45.31 Mild persistent asthma with (acute) exacerbation; E66.01 Morbid (severe) obesity due to excess calories; F43.22 Adjustment disorder with anxiety; I10 Essential (primary) hypertension; K21.9 Gastro-esophageal reflux disease without esophagitis; K44.9 Diaphragmatic hernia without obstruction or gangrene
CPT/HCPCS: 36415; 71045; 71046; 71275; 76770; 80048; 80053; 80061; 80076; 81003; 81015; 81240; 81241; 82150; 82306; 82550; 82553; 82607; 82746; 82947; 83090; 83605; 83690; 83735; 83880; 84100; 84145; 84165; 84484; 85025; 85300; 85302; 85305; 85306; 85610; 85730; 86021; 86147; 86592; 87040; 87086; 87088; 93005; 93306; 93970; 94010; 94640; 94760; 96365; 96367; 96375; 99285; J0360; J0456; J0696; J1650; J2405; J2920; J2930; J3475; J7030; J7040; J7512; J7606; Q9967

== ENCOUNTER 2019-11-18 04:37 | Emergency (ER) | payer SELFPAY ==
--- OUTSIDE RECORDS SUMMARY | 2019-11-18 04:40 | XMS REPORT | Continuity of Care Document ---
:1985 Author Organization [facility] t Address [address] [place] [address] [place] [id number] Care Team Providers Name Role Phone Unavailable Unavailable Unavailable Problems This patient has no known problems. Allergies, Adverse Reactions, Alerts This patient has no known allergies or adverse reactions. Medications This patient has no known medications. Procedures This patient has no known procedures. Results This patient has no known results.
[2019-11-18] MEDS ORDERED: NA CHLORIDE 0.9% 1,000 ML ONE (05:10)
[2019-11-18] MEDS ORDERED: METHYLPREDNISOLONE 125 MG INJ ONE (05:10)
[2019-11-18] MEDS ORDERED: predniSONE 20 MG TAB ONE (05:10)
[2019-11-18] MEDS ORDERED: DIPHENHYDRAMINE 50 MG/ML VIAL ONE (05:10)
[2019-11-18 05:22] LABS: Absolute Lymphocytes (CBC) 2.4 K/uL (0.7-4.9); Basophils % 0.8 % (0-1.3); Lymphocytes % 22.3 % (15.3-44.8); MPV 7.8 fL (7.6-11.3); RBC Red Blood Cell Count 4.51 M/uL (4.33-5.43)
[2019-11-18] MEDS ORDERED: FAMOTIDINE 20 MG/2 ML VIAL IV ONE ×2 (05:24→06:17)
[2019-11-18 05:30] LABS: Potassium 3.4 mmol/L (3.5-5.1)
--- NOTE | 2019-11-18 05:56 | EDPHYS ---
Physician Documentation [facility] Name: Isaiah Spain Age: 34 yrs Sex: Male : 1985 Arrival Date: 11/18/2019 Time: 04:38 Bed 17 Private MD: VINH Physician Jones Lin HPI: 11/17 04:51 This 34 yrs old Black Male presents to ER via Unassigned with complaints of Lips ja Swelling. 04:51 The patient presents with swelling. The problem is located in the mouth. Onset: The ja symptoms/episode began/occurred just prior to arrival. Duration: The symptoms are continuous, and are steadily getting worse. Modifying factors: The symptoms are alleviated by nothing, the symptoms are aggravated by nothing. Associated signs and symptoms: The patient has no apparent associated signs or symptoms. Severity of symptoms: At their worst the symptoms were. The patient has not experienced similar symptoms in the past. Historical: - Allergies: 05:21 No Known Allergies; ea - Home Meds: 05:21 ProAir HFA 90 mcg/actuation inhalation HFAA [Active]; ea - PMHx: 05:21 Asthma; ea - PSHx: 05:21 None; ea - Immunization history:: Adult Immunizations up to date. - Family history:: not pertinent. - Social history:: Smoking status: Patient denies any tobacco usage or history of. ROS: 04:51 Constitutional: Negative for fever, chills, and weight loss, Eyes: Negative for injury, ja pain, redness, and discharge, Neck: Negative for injury, pain, and swelling, Cardiovascular: Negative for chest pain, palpitations, and edema, Respiratory: Negative for shortness of breath, cough, wheezing, and pleuritic chest pain, Abdomen/GI: Negative for abdominal pain, nausea, vomiting, diarrhea, and constipation, Back: Negative for injury and pain, : Negative for injury, bleeding, discharge, and swelling, MS/Extremity: Negative for injury and deformity, Skin: Negative for injury, rash, and discoloration, Neuro: Negative for headache, weakness, numbness, tingling, and seizure, Psych: Negative for depression, anxiety, suicide ideation, homicidal ideation, and hallucinations, Allergy/Immunology: Negative for hives, rash, and allergies, Endocrine: Negative for neck swelling, polydipsia, polyuria, polyphagia, and marked weight changes, Hematologic/Lymphatic: Negative for swollen nodes, abnormal bleeding, and unusual bruising. 04:51 ENT: Positive for upper lip swelling. Exam: 04:51 Constitutional: This is a well developed, well nourished patient who is awake, alert, ja and in no acute distress. Eyes: Pupils equal round and reactive to light, extra-ocular motions intact. Lids and lashes normal. Conjunctiva and sclera are non-icteric and not injected. Cornea within normal limits. Periorbital areas with no swelling, redness, or edema. ENT: Nares patent. No nasal discharge, no septal abnormalities noted. Tympanic membranes are normal and external auditory canals are clear. Oropharynx with no redness, swelling, or masses, exudates, or evidence of obstruction, uvula midline. Mucous membranes moist. Neck: Trachea midline, no thyromegaly or masses palpated, and no cervical lymphadenopathy. Supple, full range of motion without nuchal rigidity, or vertebral point tenderness. No Meningismus. Chest/axilla: Normal chest wall appearance and motion. Nontender with no deformity. No lesions are appreciated. Cardiovascular: Regular rate and rhythm with a normal S1 and S2. No gallops, murmurs, or rubs. Normal PMI, no JVD. No pulse deficits. Respiratory: Lungs have equal breath sounds bilaterally, clear to auscultation and percussion. No rales, rhonchi or wheezes noted. No increased work of breathing, no retractions or nasal flaring. Abdomen/GI: Soft, non-tender, with normal bowel sounds. No distension or tympany. No guarding or rebound. No evidence of tenderness throughout. Back: No spinal tenderness. No costovertebral tenderness. Full range of motion. Skin: Warm, dry with normal turgor. Normal color with no rashes, no lesions, and no evidence of cellulitis. 04:51 Head/face: Noted is swelling, that is mild, of the upper vermilion border and upper lip. Vital Signs: 04:40 BP 187 / 132; Pulse 110; Resp 19; Temp 98.6; Pulse Ox 98% ; Weight 117.93 kg; Height 5 ea ft. 8 in. (172.72 cm); 05:43 BP 194 / 132; Pulse 102; Resp 19; Pulse Ox 98% ; ea 07:27 BP 185 / 119; Pulse 88; Resp 18; Pulse Ox 97% on R/A; ea 04:40 Body Mass Index 39.53 (117.93 kg, 172.72 cm) ea MDM: 04:45 Patient medically screened. [facility] 04:57 Data reviewed: vital signs, nurses notes, lab test result(s). Data interpreted: Cardiac ja monitor: rate is 65 beats/min, rhythm is regular, Pulse oximetry: on room air is 100 %. Counseling: I had a detailed discussion with the patient and/or guardian regarding: the historical points, exam findings, and any diagnostic results supporting the discharge/admit diagnosis, lab results, the need for outpatient follow up, for definitive care, a family practitioner. Medication response: benadryl, pepcid, solumedrol and pepcid. 11/17 04:51 Order name: CBC with Diff [facility] 11/17 04:51 Order name: Chem 7; Complete Time: 05:53 ja 11/17 05:25 Order name: Manual Differential EDMS 11/17 05:54 Order name: PO challenge: juice; Complete Time: 06:03 ja Administered Medications: 05:11 Drug: NS 0.9% 1000 ml Route: IV; Rate: 1 bolus; Site: right hand; ea 05:11 Drug: Benadryl 50 mg Route: IVP; Site: right hand; ea 06:03 Follow up: Response: No adverse reaction ea 05:11 Drug: SOLU-Medrol 125 mg Route: IVP; Site: right hand; ea 06:03 Follow up: Response: No adverse reaction ea 05:11 Drug: predniSONE 60 mg Route: PO; ea 06:04 Follow up: Response: No adverse reaction ea 05:36 Drug: Pepcid 20 mg Route: IVP; Site: right hand; ea 06:03 Follow up: Response: No adverse reaction ea 06:03 Drug: Norvasc 10 mg Route: PO; ea 07:30 Follow up: Response: No adverse reaction sv 06:16 Drug: Pepcid 20 mg Route: IVP; Site: right hand; ea 06:49 Follow up: Response: No adverse reaction ea Disposition: 11/18/19 05:55 Discharged to Home. Impression: Angioneurotic edema, Hypokalemia, Essential (primary) hypertension. - Condition is Stable. - Discharge Instructions: Potassium Content of Foods, Hypertension, Angioedema, Hypertension, [id number], Angioedema, [id number], How to Take Your Blood Pressure, [id number], Hypokalemia, Managing Your Hypertension. - Prescriptions for Benadryl 25 mg Oral Capsule - take 1 capsule by ORAL route every 6 hours As needed; 30 tablet. Pepcid 20 mg Oral Tablet - take 1 tablet by ORAL route every 12 hours for 10 days; 20 tablet. Prednisone 20 mg Oral Tablet - take 2 tablet by ORAL route once daily for 5 days; 10 tablet. EpiPen 0.3 mg Injection auto- injector - inject 1 pen by INTRAMUSCULAR route one time Inject into the outer portion of the thigh, through clothing if necessary. Indicated in the emergency treatment of allergic reactions; 1 Container. Norvasc 5 mg Oral Tablet - take 1 tablet by ORAL route once daily; 20 tablet. Hydrochlorothiazide 12.5 mg Oral Tablet - take 1 tablet by ORAL route once daily; 30 tablet. - Medication Reconciliation Form, Thank You Letter, Antibiotic Education, Prescription Opioid Use form. - Follow up: Private Physician; When: 2 - 3 days; Reason: Recheck today's complaints, Continuance of care, Re-evaluation by your physician. Follow up: Iggy Casas MD; When: 2 - 3 days; Reason: Recheck today's complaints, Continuance of care, Re-evaluation by your physician. - Problem is new. - Symptoms have improved. Signatures: Dispatcher [employer] Roya Ferguson RN RN sv Anderson, Corey, MD MD cha Antunez, Elena, RN RN ea Corrections: (The following items were deleted from the chart) 05:55 05:55 11/18/2019 05:55 Discharged to Home. Impression: Angioneurotic edema; ja Hypokalemia; Essential (primary) hypertension. Condition is Stable. Discharge Instructions: Angioedema, Angioedema, [id number]. Prescriptions for Benadryl 25 mg Oral Capsule - take 1 capsule by ORAL route every 6 hours As needed; 30 tablet, Pepcid 20 mg Oral Tablet - take 1 tablet by ORAL route every 12 hours for 10 days; 20 tablet, Prednisone 20 mg Oral Tablet - take 2 tablet by ORAL route once daily for 5 days; 10 tablet, EpiPen 0.3 mg Injection auto-injector - inject 1 pen by INTRAMUSCULAR route one time Inject into the outer portion of the thigh, through clothing if necessary. Indicated in the emergency treatment of allergic reactions; 1 Container. and Forms are Medication Reconciliation Form, Thank You Letter, Antibiotic Education, Prescription Opioid Use. Follow up: Private Physician; When: 2 - 3 days; Reason: Recheck today's complaints, Continuance of care, Re-evaluation by your physician. Problem is new. Symptoms have improved. [facility] 09:28 05:55 11/18/2019 05:55 Discharged to Home. Impression: Angioneurotic edema; sv Hypokalemia; Essential (primary) hypertension. Condition is Stable. Discharge Instructions: Angioedema, Angioedema, [id number]. Prescriptions for Benadryl 25 mg Oral Capsule - take 1 capsule by ORAL route every 6 hours As needed; 30 tablet, Pepcid 20 mg Oral Tablet - take 1 tablet by ORAL route every 12 hours for 10 days; 20 tablet, Prednisone 20 mg Oral Tablet - take 2 tablet by ORAL route once daily for 5 days; 10 tablet, EpiPen 0.3 mg Injection auto-injector - inject 1 pen by INTRAMUSCULAR route one time Inject into the outer portion of the thigh, through clothing if necessary. Indicated in the emergency treatment of allergic reactions; 1 Container. and Forms are Medication Reconciliation Form, Thank You Letter, Antibiotic Education, Prescription Opioid Use. Follow up: Private Physician; When: 2 - 3 days; Reason: Recheck today's complaints, Continuance of care, Re-evaluation by your physician. Follow up: Iggy Casas; When: 2 - 3 days; Reason: Recheck today's complaints, Continuance of care, Re-evaluation by your physician. Problem is new. Symptoms have improved. [facility]
--- NOTE | 2019-11-18 05:56 | ER ---
Nurse's Notes [facility] Name: Isaiah Spain Age: 34 yrs Sex: Male : 1985 Arrival Date: 11/18/2019 Time: 04:38 Bed 17 Private MD: Diagnosis: Angioneurotic edema;Hypokalemia;Essential (primary) hypertension Presentation: 11/17 04:40 Chief complaint: Patient states: Reports he woke up this AM with top lip swollen, ea denies known allergies, states " this happened 4 years ago" Pt reports he take BP meds but is not sure of the name. Coronavirus screen: Proceed with normal triage. Ebola Screen: No symptoms or risks identified at this time. Initial Sepsis Screen: Does the patient meet any 2 criteria? HR > 90 bpm. Does the patient have a suspected source of infection? No. Patient's initial sepsis screen is negative. Risk Assessment: Do you want to hurt yourself or someone else? Patient reports no desire to harm self or others. Onset of symptoms was November 18, 2019. 04:40 Method Of Arrival: Ambulatory ea 04:40 Acuity: TAWANA 3 ea Triage Assessment: 05:21 General: Appears in no apparent distress. ea Historical: - Allergies: 05:21 No Known Allergies; ea - Home Meds: 05:21 ProAir HFA 90 mcg/actuation inhalation HFAA [Active]; ea - PMHx: 05:21 Asthma; ea - PSHx: 05:21 None; ea - Immunization history:: Adult Immunizations up to date. - Family history:: not pertinent. - Social history:: Smoking status: Patient denies any tobacco usage or history of. Screenin:20 Abuse screen: Denies threats or abuse. Nutritional screening: No deficits noted. ea Tuberculosis screening: No symptoms or risk factors identified. Fall Risk IV access (20 points). Assessment: 05:20 General: Appears in no apparent distress. Behavior is appropriate for age. Pain: Denies ea pain. Neuro: Level of Consciousness is awake, alert, obeys commands, Oriented to person, place, time. Respiratory: Airway is patent Respiratory effort is even, unlabored, Respiratory pattern is regular, symmetrical. Derm: swelling noted to top upper lip. 06:49 Reassessment: Patient and/or family updated on plan of care and expected duration. Pain ea level reassessed. Pt drowsy, oriented x 3, respirations equal and unlabored, skin warm, dry and pink. 07:10 Reassessment: Patient appears in no apparent distress at this time. Pt sleeping at this sv time. Will continue to monitor. 08:10 Reassessment: Patient appears in no apparent distress at this time. Pt sleeping at this sv time. Will continue to monitor. 09:27 Reassessment: Patient appears in no apparent distress at this time. Patient and/or sv family updated on plan of care and expected duration. Pain level reassessed. Patient is alert, oriented x 3, equal unlabored respirations, skin warm/dry/pink. Vital Signs: 04:40 BP 187 / 132; Pulse 110; Resp 19; Temp 98.6; Pulse Ox 98% ; Weight 117.93 kg; Height 5 ea ft. 8 in. (172.72 cm); 05:43 BP 194 / 132; Pulse 102; Resp 19; Pulse Ox 98% ; ea 07:27 BP 185 / 119; Pulse 88; Resp 18; Pulse Ox 97% on R/A; ea 04:40 Body Mass Index 39.53 (117.93 kg, 172.72 cm) ea ED Course: 04:38 Patient arrived in ED. ds1 04:44 Nereyda Butts, RN is Primary Nurse. ea 04:45 Jones Lin MD is Attending Physician. ja 05:20 Triage completed. ea 05:20 Patient has correct armband on for positive identification. Bed in low position. Call ea light in reach. Side rails up X2. 05:20 Arm band placed on right wrist. Patient placed in an exam room, on a stretcher, on ea pulse oximetry. 05:22 Inserted saline lock: 20 gauge in right hand, using aseptic technique. ea 05:55 Iggy Casas MD is Referral Physician. ja 06:50 No provider procedures requiring assistance completed. ea 07:31 Manual Differential Sent. sv 07:49 Primary Nurse role handed off by Nereyda Butts, JIE sv 09:00 Roya Redd RN is Primary Nurse. sv 09:27 IV discontinued, intact, bleeding controlled, No redness/swelling at site. Pressure sv dressing applied. Administered Medications: 05:11 Drug: NS 0.9% 1000 ml Route: IV; Rate: 1 bolus; Site: right hand; ea 05:11 Drug: Benadryl 50 mg Route: IVP; Site: right hand; ea 06:03 Follow up: Response: No adverse reaction ea 05:11 Drug: SOLU-Medrol 125 mg Route: IVP; Site: right hand; ea 06:03 Follow up: Response: No adverse reaction ea 05:11 Drug: predniSONE 60 mg Route: PO; ea 06:04 Follow up: Response: No adverse reaction ea 05:36 Drug: Pepcid 20 mg Route: IVP; Site: right hand; ea 06:03 Follow up: Response: No adverse reaction ea 06:03 Drug: Norvasc 10 mg Route: PO; ea 07:30 Follow up: Response: No adverse reaction sv 06:16 Drug: Pepcid 20 mg Route: IVP; Site: right hand; ea 06:49 Follow up: Response: No adverse reaction ea Outcome: 05:55 Discharge ordered by . ja 09:27 Discharged to home ambulatory. sv 09:27 Condition: stable 09:27 Discharge instructions given to patient, Instructed on discharge instructions, follow up and referral plans. medication usage, Demonstrated understanding of instructions, follow-up care, medications, Prescriptions given X x5 09:28 Patient left the ED. sv Signatures: Roya Redd RN RN sv Anderson, Corey, MD MD cha Sanford, Demi ds1 Nereyda Butts RN RN ea
[2019-11-18] MEDS ORDERED: AMLODIPINE 5 MG TAB ONE (06:08)
[2019-11-18 08:35] LABS: Blood Morphology Comment NOT SEEN (NOT SEEN); Platelet Estimate ADEQ
[2019-11-18 09:32] VITALS: TEMP 98.6
[2019-11-18 09:35] VITALS: BP 185/119; O2SAT 97
== END 2019-11-18 09:28 | disposition home or self-care (01) ==
LOC: ER 04:37
DX: E87.6 Hypokalemia (principal); I10 Essential (primary) hypertension; J45.909 Unspecified asthma, uncomplicated
CPT/HCPCS: 36415; 80048; 85025; 96374; 96375; 99284; J1200; J2930; J7030; J7512

== ENCOUNTER 2020-04-26 14:17 | Inpatient (IN) | payer SELFPAY ==
--- OUTSIDE RECORDS SUMMARY | 2020-04-26 14:19 | XMS REPORT | Continuity of Care Document ---
:1985 Author Organization [employer] Care Team Providers Name Role Phone [facility] [place] Information Exchange Unavailable Un available Problems Problem Status Onset Classification Date Comments Sourc e Date Reported PNA, DYSPNEA, Active Memori al HYPOXIA 0 [place] Active [facility] 0 [place] Essential 01/11/2020 [place] (primary) 0 hypertension Unspecified 01/11/2020 [place] asthma with 0 (acute) exacerbation Sleep apnea, 01/11/2020 [place] unspecified 0 ASTHMA Active [facility] 0 [place] Asthma Active Problem 02/14/2020 [place] (disorder) PNEUMONIA, Active [facility] UNSPECIFIED [place] ORGANISM DYSPNEA, Active [facility] UNSPECIFIED [place] HYPOXEMIA Active [facility] Medications Medication Details Route Status Patient Ordering Order Source Instructions Provider Date Furosemide 40 MG Notes: (Same No Longer Oral Tablet [Lasix] as: Lasix) Active 2020 [place] May cause GI upset. Give with food or milk. Aspirin 81 MG Notes: Do not No Longer Enteric Coated crush or chew. Active 2019 [place] Tablet (Same As: Ecotrin) [place] Notes: Give Inactive with food. 2020 [place] (Same As: Coreg) Aspirin 81 MG 81 mg = 1 tab, Active Enteric Coated PO, Daily, # 2020 [place] Tablet 30 tab, 1 Refill(s), [facility], 172.72, cm, 02/08/20 7:17:00 CDT, Height, 142.002, kg, 02/08/20 7:17:00 CDT, Weight carvedilol 3.125 mg 6.25 mg = 2 Active oral tablet tab, PO, Q12H, 2020 [place] and # 120 tab, 1 Refill(s), Pharmacy: [facility] 009, 172.72, cm, 02/08/20 7:17:00 CDT, Height, 142.002, kg, 02/08/20 7:17:00 CDT, Weight cefdinir 300 MG 300 mg = 1 Active Oral Capsule cap, PO, 2019 [place] OOAT69S, X 7 day, # 14 cap, 0 Refill(s), Pharmacy: [facility] Alex, 172.72, cm, 02/08/20 7:17:00 CDT, Height, 142.002, kg, 02/08/20 7:17:00 CDT, Weight Hydralazine 25 mg = 1 tab, Active Hydrochloride 25 MG PO, TID, # 90 2019 [place] Oral Tablet tab, 1 Refill(s), Pharmacy: [facility] Alex, 172.72, cm, 02/08/20 7:17:00 CDT, Height, 142.002, kg, 02/08/20 7:17:00 CDT, Weight Furosemide 40 MG 40 mg = 1 tab, Active Oral Tablet [Lasix] PO, Daily, # 2020 [place] 30 tab, 0 Refill(s), [facility] Alex, 172.72, cm, 02/08/20 7:17:00 CDT, Height, 142.002, kg, 02/08/20 7:17:00 CDT, Weight predniSONE 20 mg 40 mg = 2 tab, Active oral tablet PO, Daily, X 5 2019 and , # 10 tab, 0 Refill(s), Pharmacy: [facility] Alex, 172.72, cm, 02/08/20 7:17:00 CDT, Height, 142.002, kg, 02/08/20 7:17:00 CDT, Weight Hydralazine Notes: (Same Inactive Hydrochloride 25 MG as: 2019 [facility] Oral Tablet Apresoline) May interfere w/enteral feedings Take With Food. [place] Notes: Give Inactive MH with food. 2019 [place] (Same As: Coreg) cefdinir 300 MG Notes: (Same Inactive Oral Capsule As: Omnicef) 2019 [facility] nd azithromycin 500 mg Notes: Take 1 Inactive 10/07 / MH oral tablet hour before or 2019l and 2 hours after meals. (Same As: Zithromax) [place] Notes: Give No Longer with food. Active 2019 [place] (Same As: Coreg) Lasix Notes: (Same No Longer as: Lasix) Active 2019 [place] MEDICATION WASTE Product Size: 40 mg Product Wasted: ___ mg albuterol Notes: SEE RT No Longer DOCUMENTATION Active 2019 [place] (Same as: Proventil) Pulmicort Respules Notes: (Same No Longer As: Pulmicort) Active 2019 [place] methylPREDNISolone Notes: (Same No Longer SODium SUCCinate as:Solu-MEDROL Active 2019 [place] , A-Methapred) Lovenox Notes: (Same No Longer as: Lovenox) Active 2019 [place] Advair Diskus 250 1 inhalation, Inactive mcg-50 mcg Route: 2019 [place] inhalation powder INHALATION, Drug Form: AERO, Dosing Weight 142.002, kg, BID, Start date: 02/08/20 9:00:00 CDT, Duration: 30 day, Stop date: 03/08/20 17:00:00 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 Active 2019 [place] Use with 100 mL NS and infuse over 30 min MEDICATION WASTE Product Size: 1000 mg Product Wasted: ___ mg Enoxaparin Notes: (Same No Longer as: Lovenox) Active 2019 [place] Acetaminophen Notes: Do not No Longer exceed 4 Active 2019 [place] gm/day. (Same as: Tylenol) Codeine Phosphate 2 Notes: (Same No Longer 02/07 MG/ML / Guaifenesin As: Robitussin Active 2019 [place] 20 MG/ML Oral AC) Solution Ondansetron Notes: (Same No Longer as: Zofran) Active 2019 [place] MEDICATION WASTE Product Size: 4 mg Product Wasted: ___ mg Albuterol 0.833 Notes: (Same No Longer H MG/ML / Ipratropium as: Duoneb) Active 2019 [place] Clutier 0.167 MG/ML Inhalant Solution Labetalol 20 mg, Route: Inactive IVP, Drug 2019 [place] form: INJ, ONCE, Dosing Weight 142, kg, Start date: 02/08/20 6:14:00 CDT, Stop date: 02/08/20 6:14:00 CDT Rocephin 1 gm, Route: Inactive IVPB, Drug 2019 [place] form: PDR/INJ, ONCE, Dosing Weight 142, kg, Priority: STAT, Start date: 02/08/20 4:22:00 CDT, Stop date: 02/08/20 4:22:00 CDT, ABX Indication: Pneumonia azithromycin 500 mg 500 mg, Route: Inactive oral tablet PO, Drug form: 2020 [place] and TAB, ONCE, Dosing Weight 142, kg, Start date: 02/08/20 4:22:00 CDT, Stop date: 02/08/20 4:22:00 CDT, ABX Indication: Pneumonia Solu-Medrol Notes: (Same Inactive as:Solu-MEDROL 2019 [place] , A-Methapred) Albuterol 0.833 Notes: (Same Inactive MG/ML / Ipratropium as: Duoneb) 2019 [place] Clutier 0.167 MG/ML Inhalant Solution Hydrochlorothiazide 12.5 mg = 1 Active 12.5 MG Oral cap, PO, 2019 [place] Capsule Daily, # 30 cap, 0 Refill(s) albuterol 90 2 puff, Active mcg/inh inhalation INHALATION, 2019 [place] aerosol QID, # 17 gm, 0 Refill(s) predniSONE 20 mg 20 mg = 1 tab, Active oral tablet PO, Daily, X 7 2019 [place] and day, # 7 tab, 0 Refill(s) Hydrochlorothiazide Notes: (Same Inactive as: Microzide) 2019 [place] With food. Albuterol 0.833 Notes: (Same Inactive MG/ML / Ipratropium as: Duoneb) 2019 [place] Clutier 0.167 MG/ML Inhalant Solution methylPREDNISolone Notes: (Same Inactive SODium SUCCinate as:Solu-MEDROL 2019 [place] , A-Methapred) Allergies, Adverse Reactions, Alerts Substance Category Reaction Severity Reaction Status Date Comments S ource type Reported No Known Assertion Drug Medication allergy Ginger and Allergies Immunizations Immunization Date Site Status Last Comments Source Given Updated pneumococcal Left completed [facility] 23-valent vaccine 2 deltoid Results Order Name Results Value Reference Date Interpretation Comments Tena rce Range Gram Stain Gram Stain 02/08 Report Performed [place] By: [facility] Culture: Few Yeast Isolated 02/08 Respiratory Normal Respiratory [place] Isolated [place] w/Gram Stain CHEM PANEL Lactic Acid 1.7 0.5 - 2.2 02/07 [facility] [place] MOLECULAR Source Nasophrngl Swb 02/07 DIAGNOSTIC Respiratory *NA [place] Panel PCR (02/08/20 4:49 PM) MOLECULAR Influenza A Negative Negative 02/07 DIAGNOSTIC PCR *NA* [place] (02/08/20 4:49 PM) MOLECULAR Influenza B Negative Negative 02/07 DIAGNOSTIC PCR *NA* [place] (02/08/20 4:49 PM) MOLECULAR RSV PCR Negative Negative 02/07 DIAGNOSTIC *NA* [place] (02/08/20 4:49 PM) CHEM PANEL Lactic Acid 2.5 0.5 - 2.2 02/07 [facility] [place] HEMATOLOGY D-Dimer 1.27 02/07 [place] IMMUNOLOGY Coronavirus Not Detected Not 02/07 (COVID-19) (02/08/20 4:40 AM) Detected /2020 [place]ISON CARDIAC Troponin-I 0.12 0.00 - 10 ENZYMES 0.40 [place] CARDIAC BNP 245 <=100 02/07 ENZYMES pg/mL /2019 [place] CHEM PANEL Glucose Lvl 100 70 - 99 02/07 [place] CHEM PANEL BUN 15 7 - 22 10 [place] CHEM PANEL Creatinine 1.43 0.50 - 10 MH Lvl 1.40 [place] CHEM PANEL Sodium Lvl 141 135 - 145 02/07 MH [place] CHEM PANEL Potassium 3.5 3.5 - 5.1 02/07 MH Lvl /2019 [place] CHEM PANEL Chloride Lvl 107 95 - 109 02/07 [place] CHEM PANEL CO2 26 24 - 32 02/07 [place] CHEM PANEL Calcium Lvl 8.7 8.5 - 10.5 02/07 [place] CHEM PANEL Total 7.5 6.4 - 8.4 02/07 MH Protein [place] CHEM PANEL Albumin Lvl 3.2 3.5 - 5.0 02/07 [place] CHEM PANEL ALT 27 0 - 65 02/07 MH [place] CHEM PANEL AST 23 0 - 37 02/07 [place] CHEM PANEL Alk Phos 87 39 - 136 02/07 [place] CHEM PANEL Bili Total 0.4 0.2 - 1.3 02/07 [place] CHEM PANEL AGAP 11.5 10.0 - 02/07 MH 20.0 /2019 [place] CHEM PANEL B/C Ratio 10 6 - 25 02/07 [place] CHEM PANEL Globulin 4.3 2.7 - 4.2 02/07 MH [place] CHEM PANEL A/G Ratio 0.7 0.7 - 1.6 02/07 MH [place] CHEM PANEL eGFR 74 02/07 [facility] Comment: The [place] eGFR is calculated using the CKD-EPI formula. In most young, healthy individuals the eGFR will be >90 mL/min/1.73m2 . The eGFR declines with age. An eGFR of 60-89 may be normal in some populations, particularly the elderly, for whom the CKD-EPI formula has not been extensively validated. Use of the eGFR is not recommended in the following populations:< br/>
Huma viduals with unstable creatinine concentration s, including patients and those with serious co-morbid conditions.<b r/>
Patie nts with extremes in muscle mass or diet.

The data above are obtained from the National Kidney Disease Education Program (NKDEP) which additionally recommends that when the eGFR is used in patients with extremes of body mass index for purposes of drug dosing, the eGFR should be multiplied by the estimated BMI. HEMATOLOGY WBC 10.8 3.7 - 10.4 02/07 [place] HEMATOLOGY RBC 4.16 4.70 - 02/07 MH 6.10 [place] HEMATOLOGY Hgb 11.6 14.0 - 02/07 MH 18.0 [place] HEMATOLOGY Hct 35.1 42.0 - 02/07 MH 54.0 [place] HEMATOLOGY MCV 84.4 80.0 - 02/07 MH 94.0 [place] HEMATOLOGY MCH 28.0 27.0 - 02/07 MH 31.0 [place] HEMATOLOGY MCHC 33.1 32.0 - 02/07 MH 36.0 [place] HEMATOLOGY RDW 14.3 11.5 - 02/07 MH 14.5 [place] HEMATOLOGY Platelet 412 133 - 450 02/07 [place] HEMATOLOGY MPV 7.4 7.4 - 10.4 02/07 [place] HEMATOLOGY Segs 65.5 45.0 - 02/07 MH 75.0 [place] HEMATOLOGY Lymphocytes 19.0 20.0 - 02/07 MH 40.0 [place] HEMATOLOGY Monocytes 7.1 2.0 - 12.0 02/07 [place] HEMATOLOGY Eosinophils 7.7 0.0 - 4.0 02/07 [place] HEMATOLOGY Basophils 0.7 0.0 - 1.0 02/07 [place] HEMATOLOGY Neutrophils 7.1 1.5 - 8.1 10 MH # /2019 [place] HEMATOLOGY Lymphocytes 2.1 1.0 - 5.5 02/07 MH # [place] HEMATOLOGY Monocytes # 0.8 0.0 - 0.8 02/07 [place] HEMATOLOGY Eosinophils 0.8 0.0 - 0.5 10/ MH # [place] HEMATOLOGY Basophils # 0.1 0.0 - 0.2 10/ MH /2020 [place] CARDIAC Troponin-I 0.09 0.00 - 01/08 MH ENZYMES 0.40 [place] CHEM PANEL Glucose Lvl 98 70 - 99 01/08 [place] CHEM PANEL BUN 14 7 - 22 01/08 [place] CHEM PANEL Creatinine 1.26 0.50 - 01/08 MH Lvl 1.40 [place] CHEM PANEL Sodium Lvl 140 135 - 145 01/08 [place] CHEM PANEL Potassium 3.9 3.5 - 5.1 01/08 MH Lvl /2019 [place] CHEM PANEL Chloride Lvl 107 95 - 109 01/08 [place] CHEM PANEL CO2 25 24 - 32 01/08 [place] CHEM PANEL Calcium Lvl 8.5 8.5 - 10.5 01/08 [place] CHEM PANEL AGAP 11.9 10.0 - 01/08 MH 20.0 [place] CHEM PANEL eGFR 87 01/08 Result Comment: The [place] eGFR is calculated using the CKD-EPI formula. In most young, healthy individuals the eGFR will be >90 mL/min/1.73m2 . The eGFR declines with age. An eGFR of 60-89 may be normal in some populations, particularly the elderly, for whom the CKD-EPI formula has not been extensively validated. Use of the eGFR is not recommended in the following populations:< br/>
Huma viduals with unstable creatinine concentration s, including patients and those with serious co-morbid conditions.<b r/>
Patie nts with extremes in muscle mass or diet.

The data above are obtained from the National Kidney Disease Education Program (NKDEP) which additionally recommends that when the eGFR is used in patients with extremes of body mass index for purposes of drug dosing, the eGFR should be multiplied by the estimated BMI. HEMATOLOGY WBC 10.5 3.7 - 10.4 01/08 [place] HEMATOLOGY RBC 4.75 4.70 - 01/08 MH 6. [place] HEMATOLOGY Hgb 13.3 14.0 - 01/08 MH 18. [place] HEMATOLOGY Hct 39.8 42.0 - 01/08 MH 54.0 [place] HEMATOLOGY MCV 83.9 80.0 - 01/08 MH 94.0 [facility] MCH 28.0 27.0 - 01/08 MH 31.0 [facility] MCHC 33.3 32.0 - 01/08 MH 36.0 [facility] RDW 14.4 11.5 - 09 MH 14. [facility] Platelet 376 133 - 450 01/08 [facility] MPV 7.4 7.4 - 10.4 01/08 [facility] Segs 64.1 45.0 - 01/08 MH 75.0 [facility] Lymphocytes 18.0 20.0 - 01/08 MH 40.0 [facility] Monocytes 9.2 2.0 - 12.0 01/08 [facility] Eosinophils 8.1 0.0 - 4.0 01/08 [facility] Basophils 0.6 0.0 - 1.0 01/08 [facility] Neutrophils 6.7 1.5 - 8.1 01/08 # [facility] Lymphocytes 1.9 1.0 - 5.5 01/08 [facility] Monocytes # 1.0 0.0 - 0.8 01/08 [facility] Eosinophils 0.8 0.0 - 0.5 01/08 [facility] Basophils # 0.1 0.0 - 0.2 01/08 [facility] D-Dimer 0.46 01/08 [facility] Pathology Reports No Data Provided for This Section Diagnostic Reports Report Value Date Source Chest Pulmonary Radiation Dose CTDIVOL = 0 (mGy): DLP = 941.99 (mGy-cm) 02/08/2020 [facility] CTA PROCEDURE INFORMATION: Exam: CT Angiography Chest With Contrast Exam date and time: 02/08/2020 3:59 AM Age: 34 years old Clinical indication: Dyspnea; HX asthma; shortne ss of breath. TECHNIQUE: Imaging protocol: Computed tomographic angiograp hy of the chest with intravenous contrast. 3D rendering (Not supervised by radiologist): PA P and/or 3D reconstructed images were created by the technologist. Radiation optimization: All CT scans at this facility use at least one of these dose optimization techniques: automated exposure control; mA and/or kV adjustment per patient size (includes targeted e xams where dose is matched to clinical indication); or iterative reconstructio n. Contrast material: OMNI 350; Contrast volume: 95 ml; Contrast route: INTRAVENOUS (IV); COMPARISON: CHEST 1VIEW DX 02/08/2020 3:02 AM RADIATION DOSE METRICS: Total DLP (mGy-cm): 941.99 FINDINGS: Pulmonary arteries: No evidence of acute pulmona ry embolism. Aorta: No thoracic aortic aneurysm or dissection . Lungs: Scattered ground-glass opacities througho ut both lungs. Pleural space: No pneumothorax. No pleural effus ion. Heart: Heart size mildly enlarged. No pericardia l effusion. Lymph nodes: No enlarged lymph nodes. Kidneys and ureters: A 1.9 cm simple cyst within the upper pole left kidney. Bones/joints: No acute osseous abnormality seen. Soft tissues: Unremarkable. IMPRESSION: Scattered ground-glass opacities throughout both lungs. Findings are nonspecific but can be seen with both typical an d atypical infectious etiologies, including viral pneumonias. In the a ppropriate clinical context, COVID-19 infection is in the differential. COMMENTS: Consistent with the [place] [employer]'s Incidental Findings Committee white paper (J Am Miguel Radiol 2018): Any incidental renal lesion less than 1 cm or classified as too small to characterize, or any incidental cystic renal lesion characterized as simple-moreno earing, is likely benign. No follow-up imaging is recommended for t hese lesions per consensus recommendations based on imaging criteria. Marvin Hidalgo MD On 02/08/2020 04:50:29; [id number] [id number] Chest 1view DX PROCEDURE INFORMATION: 02/08/2020 [facility] Exam: XR Chest, 1 View Exam date and time: 02/08/2020 3:02 AM Age: 34 years old Clinical indication: Shortness of breath TECHNIQUE: Imaging protocol: XR of the chest Views: 1 view. COMPARISON: CHEST 1VIEW DX 01/09/2020 8:49 AM FINDINGS: Lungs: There appear to be patchy infiltrates of the bilateral mid to lower lungs. Pleural space: No pleural effusion or pneumothor ax are visible. Heart/Mediastinum: The cardi ac silhouette and pulmonary vasculature are grossly within normal limits. Bones/joints: No acute bony abnormalities are se en. IMPRESSION: Potential patchy infiltrates of the bilateral mid to lower lungs. In the proper clinical setting, this appearance may be seconda ry to pneumonia. Srikanth Molina MD On 02/08/2020 03:38:31; VR-BPRA [id number] Chest 1view DX PROCEDURE INFORMATION: 01/09/2020 [facility] [place] Exam: XR Chest, 1 View Exam date and time: 01/09/2020 8:49 AM Age: 34 years old Clinical indication: Shortness of breath and whe ezing; Patient HX: Sudden shortness of breath/gasping for air at night whi le sleeping for 3 nights. PT uses his nebulizer for his asthma without real i mprovement. HX of gibson (doesnt have cpap). Denies pain, SOB during the day, fevers/chills. ; Additional info: /shob; () TECHNIQUE: Imaging protocol: XR of the chest Views: 1 View. Frontal view COMPARISON: No relevant prior studies available. FINDINGS: Lungs: Normal lung volumes. No consolidation. Pleural space: No pleural effusion. No pneumotho rax. Heart/Mediastinum: Heart size is within normal l imits. Bones/joints: Unremarkable. IMPRESSION: No acute findings. Miguel Cruz MD On 01/09/2020 09:12:38; VR-MSY [id number] Consultation Notes No Data Provided for This Section Discharge Summaries No Data Provided for This Section History and Physicals No Data Provided for This Section Vital Signs Vital Sign Value Date Comments Source Temperature Oral (F) 97.7 F 02/09/2020 [place] Heart Rate 101 02/09/2020 [place] Systolic (mm Hg) 156 02/09/2020 [facility] [place] Diastolic (mm Hg) 105 02/09/2020 [place] Temperature Oral (F) 97.7 F 02/09/2020 [place] Heart Rate 95 02/09/2020 [place] Systolic (mm Hg) 143 02/09/2020 [facility] [place] Diastolic (mm Hg) 88 02/09/2020 [facility] [place] Respitory Rate 18 02/09/2020 [facility] [place] Respitory Rate 20 02/09/2020 [place] Temperature Oral (F) 98.1 F 02/09/2020 [place] Heart Rate 95 02/09/2020 [facility] Respitory Rate 18 02/09/2020 [place] Systolic (mm Hg) 140 02/09/2020 [facility] [place] Diastolic (mm Hg) 98 02/09/2020 [facility] [place] Height 172.72 cm 02/08/2020 [facility] Weight 142.002 02/08/2020 [facility] BMI Calculated 47.6 02/08/2020 [facility] Height 172.72 cm 02/08/2020 [facility] Weight 150.1 02/08/2020 [facility] BMI Calculated 50.31 02/08/2020 [facility] Weight 142 02/08/2020 [facility] Systolic (mm Hg) 169 01/09/2020 [facility] Diastolic (mm Hg) 113 01/09/2020 [place] Heart Rate 101 01/09/2020 [facility] Respitory Rate 20 01/09/2020 [facility] Systolic (mm Hg) 162 01/09/2020 [facility] Diastolic (mm Hg) 121 [facility] 103 01/09/2020 [facility] Respitory Rate 20 01/09/2020 [facility] Respitory Rate 20 01/09/2020 [facility] Height 172.72 cm 01/09/2020 [facility] BMI Calculated 47.16 01/09/2020 [facility] Weight 140.7 01/09/2020 [facility] Systolic (mm Hg) 191 01/09/2020 [facility] Diastolic (mm Hg) 127 [facility]/09/2020 [facility] Rate 101 01/09/2020 [facility] Temperature Oral (F) 97.8 F 01/09/2020 [facility] Encounters Location Location Encounter Encounter Reason Attending ADM [place] Stat Source Details Type Number For Provider Date Date Visit [facility] [id number] Hussein 01/08 01/08 [facility] Justina /2019 [facility] [id number] Glenn 02/07 02/08 [facility] Mirzadcrosita /2019 [facility] Procedures No Data Provided for This Section Assessment and Plan Assessment and Plan Date Source Extracted from:Title: Clinical Document 02/09/2020 [facility] Author: Donato Marrufo MD Date: 02/09/20 [facility] Initial Cardiology Consultation Note Reason for Consult: Heart failure evaluation Chief Complaint: Shortness of breath HPI: 34-year-old male with history of hyperte nsion, asthma, CKD, sleep apnea, who comes to hospital with shortness of breath for the past 5 days, and we have been consulted for heart failure evaluation. Patient's echocardiogram this admission showed an LVEF of 35 to 40% with grade 2 diastolic dysfunction. IVC appeared normal in size. Patient also had a CTA of the chest which revealed scattered groundglass opacities throughout both lungs. Patient denies any chest pain. He says shortness of breath is resolved. No leg edema. No palpitations. No complaints. He has known to go home now. Patient's creatinine was little elevated in the ER at 1.4. Cardiac troponins were within laboratory limits at 0.09 and 0.12. BNP was 245. White count was slightly elevated. REVIEW OF SYSTEMS: CONSTITUTIONAL: No fever. No chills. No dizziness. No weakne ss. EYES: No pain, erythema, or discharge. No blurring of vision . EAR, NOSE AND THROAT: No sore throat, URI symptoms. No epist axis. No tinnitus. CARDIOVASCULAR: No chest pain. No palpitations. No lower ext remity edema. RESPIRATORY: + shortness of breath, coug h, pain with respiration, or pleuritic chest pain. No hemoptysis. No dyspnea. No paroxysmal nocturnal dyspnea. GASTROINTESTINAL: Normal appetite. No na usea, vomiting, diarrhea. No pain. No bloating. No melena. GENITOURINARY: No frequency, urgency, nocturia. No hematuria or dysuria. MUSCULOSKELETAL: No arthralgias or myalgias. INTEGUMENTARY: No swelling. No bruising. No contusions. No abrasions. No lymphangitis. NEUROLOGIC: No headache. No neck pain. N o numbness or tingling of the extremities. No weakness. PSYCHIATRIC: No confusion. METABOLIC: No fatigue. No weakness. No h istory of thyroid, diabetes or adrenal problems. HEMATOLOGICAL: No bleeding. No petechiae. No bruising. ALLERGY: No asthma. No urticaria. PAST MEDICAL HISTORY: No qualifying data available PAST SURGICAL HISTORY: No qualifying data available FAMILY HISTORY: Grandparent: Hypertension SOCIAL HISTORY: No tobacco, alcohol, or drug abuse MEDICATIONS: See inpatient medications below Allergies: No Known Medication Allergies Vitals Tmp(F) Pulse BP RR SpO2 FIO2 02/08 08:00 97.7 95 143/88 18 96 --- 02/08 07:02 ---- --- ----- 20 97 --- 02/08 04:00 98.1 95 140/98 18 95 --- 02/08 00:00 98.2 109 158/99 20 95 --- 02/07 22:41 ---- --- ----- -- 98 21% 24 Hr Tmax: 98.2F (36.78c) at 02/08 00:0 0 Vital Signs are the last 5 in the past 48 hours. Gen: Alert, no apparent distress, obese Neck: No carotid bruits Lungs: Decreased at bases Heart: Regular, S1-S2 Abd: Soft, nt, nd, +bs Ext: No edema Neuro: No focal deficits Skin: warm, moist Labs (Last four charted values) WBC H 10.8 (FEB 07) Hgb L 11.6 (FEB 07) Hct L 35.1 (FEB 07) Plt 412 (FEB 07) Na 141 (FEB 07) K 3.5 (FEB 07) CO2 26 (FEB 07) Cl 107 (FEB 07) Cr H 1.43 (FEB 07) BUN 15 (FEB 07) Glucose Random H 100 (FEB 07) Ca 8.7 (FEB 07) Troponin 0.12 (FEB 07) Impression: Acute systolic heart failure LVEF 35 to 40% Community-acquired pneumonia CKD Sleep apnea Hypertension Plan: We have been consult for further evaluat ion the patient's newly diagnosed heart failure. The patient presented to the hospital with pneumonia and was treated with IV antibiotics. He has had signi ficant amount improvement in his symptom s with antibiotics and IV Lasix. He says he feels almost back to his normal self now and wants to go home. I have transition to oral Lasix. I have switched him from amlodipine to hydralazine for hear t failure therapy. His carvedilol has been increased to 6.25 mg p.o. twice a day. No ASHLIE inhibitor or angiotensin receptor laurent due to elevated creatinine. Patient's heart rates remain improved th roughout the day today, patient be stable for discharge with close follow-up as an outpatient. Patient will see me within the next 2 weeks via telemedicine if he is discharged. Continuous Infusions: None Scheduled Meds (9): 02/08/20 albuterol 2.49 mg NEB RQID 02/08/20 amLODIPine (Norvasc) 10 mg PO Daily 02/08/20 budesonide (Pulmicort Respules) 0.5 mg NEB RBID 02/08/20 carvedilol (Coreg) 3.125 mg PO Q12H 02/09/20 cefdinir (cefdinir 300 mg oral capsule) 300 mg PO A [id number] 02/08/20 enoxaparin 40 mg SUB-Q [id number] 02/08/20 enoxaparin (Lovenox) 40 mg SUB-Q [id number] 02/08/20 furosemide (Lasix) 40 mg IVP BID Diuretic 02/08/20 methylPREDNISolone (methylPREDN ISolone SODium SUCCinate) 40 mg IVP Q12H Extracted from:Title: History and Physical Author: Sharad Palacios MD Date: 02/08/20 1.Dyspnea(R06.0) Multifactorial likely secondary pneumoni a, asthma exacerbation,organism unspecified, uncontrolled hypertension,possible acute on chronic diastolic heart failure ID on board Continue current antibiotics Echo to follow Lasix and control blood pressure 2.Asthma(J45.909) Duo nebs PRN and steroids 3.Uncontrolled hypertension(I10) Amlodipine, Lasix 4.GIBSON on CPAP(G47.33) Continue CPAP 5.Morbid obesity(E66.01) Counseled lovenox Expect 2 Mn stay case discussed with ID Addendum by Sharad Palacios MD on 02/08/2020 18:12 CDT Echo with low EF and diastolic heart failure as well Cardiology consult Start COreg, Add ACEI once SARAI resolves Plan of Care No Data Provided for This Section Social History Social History Date Source Social History TypeResponse 02/08/2020 [facility] Alcohol Current, Type Beer, Wine, Liquor. Frequency: 1-2 times per year. Substance Abuse Use: None. Recreational Drug Route: Oral. Smoking Status Never smoker; Exposure to Tobacco Smoke None; Cigarette Smoking Last 365 Days No; Reg Smoking Cessation Counseling No entered on: 02/08/20 Family History No Data Provided for This Section Advance Directives No Data Provided for This Section Functional Status No Data Provided for This Section
--- OUTSIDE RECORDS SUMMARY | 2020-04-26 14:19 | XMS REPORT | Summary of Care ---
:1985 Author Organization [facility] spital Address [address] [place] [address]- Encounter HQ Encntr_stephy(FIN) [id number] Date(s): 02/08/20 - 02/09/20 [facility] [id number] [place] [address] [phone] Discharge Disposition: Home or Self Care Attending Physician: Glenn Magallon MD Admitting Physician: Glenn Magallon MD Vital Signs Most recent to oldest 1 2 3 [Reference Range]: Height 172.72 cm 172.72 cm (02/08/20 7:17 AM) (02/08/20 6:15 AM) Temperature Oral [96.4-99.1 97.7 DegF 97.7 DegF 98.1 DegF DegF] (02/09/20 12:00 PM) (02/09/20 8:00 AM) (02/09/20 4: 00 AM) Blood Pressure [90-140/60-90 156/105 mmHg 143/88 mmHg 140 /98 mmHg mmHg] *HI* *HI* (02/09/20 4:00 AM ) (02/09/20 12:00 PM) (02/09/20 8:00 AM) Respiratory Rate [14-20 BRMIN] 18 BRMIN 20 BRMIN 1 8 BRMIN (02/09/20 8:00 AM) (02/09/20 7:02 AM) (02/09/20 4:0 0 AM) Peripheral Pulse Rate [60-100 101 bpm 95 bpm 95 bpm bpm] *HI* (02/09/20 8:00 AM) (02/09/20 4:00 AM) (02/09/20 12:00 PM) Weight 142.002 kg 150.1 kg 142 kg (02/08/20 7:17 AM) (02/08/20 6:15 AM) (02/08/20 2:1 4 AM) Body Mass Index 47.6 m2 50.31 m2 (02/08/20 7:17 AM) (02/08/20 6:15 AM) Problem List Condition Effective Dates Status Health Status Informant Asthma(Confirmed) Active Allergies, Adverse Reactions, Alerts No Known Medication Allergies Medications acetaminophen 650 mg, 2 tab, Route: PO, Drug form: TAB, Q4H, Dosing Weight 150.1, kg, PRN Pain Score 1-3, For fever > 100.4. Not to exceed 4 grams in 24 hours, Start date: 02/08/20 6:30:00 CDT, Duration: 30 day, Stop date: 03/09/20 6:29:00 LACQUER SPRAYER, 0 Notes: Do not exceed 4 gm/day. (Same as: Tylenol) Start Date: 02/08/20 Stop Date: 02/09/20 Status: DiscontinuedAdvair Diskus 250 mcg-50 mcg inhalation powder 1 inhalation, Route: INHALATION, Drug Form: AERO, Dosing Weight 142.002, kg, BID, Start date: 02/08/20 9:00:00 CDT, Duration: 30 day, Stop date: 03/08/20 17:00:00 LACQUER SPRAYER Start Date: 02/08/20 Stop Date: 02/08/20 Status: Deletedalbuterol 2.49 mg, 3 mL, Route: NEB, Drug form: SOLHosea, RQID, Start date: 02/08/20 11:00:00 CDT, Duration: 30 day, Stop date: 03/09/20 7:00:00 LACQUER SPRAYER, 0 Notes: SEE RT DOCUMENTATION (Same as: Proventil) Start Date: 02/08/20 Stop Date: 02/09/20 Status: Discontinuedalbuterol-ipratropium 2.5-0.5 mg inhalation solution 3 mL, Route: NEB, Drug Form: SOLN, Dosing Weight 142, kg, ONCE, STAT, Start date: 02/08/20 3:28:00 CDT, Stop date: 02/08/20 3:28:00 CDT, 0 Notes: (Same as: Duoneb) Start Date: 02/08/20 Stop Date: 02/08/20 Status: Completedalbuterol-ipratropium 2.5-0.5 mg inhalation solution 3 mL, Route: NEB, Drug Form: SOLN, Dosing Weight 150.1, kg, PRN, PRN Respiratory Pathway, Start date: 02/08/20 6:30:00 CDT, Duration: 30 day, Stop date: 03/09/20 5:29:00 LACQUER SPRAYER, 0 Notes: (Same as: Duoneb) Start Date: 02/08/20 Stop Date: 02/09/20 Status: Discontinuedaspirin 81 mg tablet, enteric coated 81 mg, 1 tab, Route: PO, Drug form: ECTAB, Daily, Dosing Weight 142.002, kg, Start date: 02/10/20 9:00:00 CDT, Duration: 30 day, Stop date: 03/10/20 9:00:00 LACQUER SPRAYER, 0 Notes: Do not crush or chew.(Same As: Ecotrin) Start Date: 02/10/20 Stop Date: 02/09/20 Status: Canceledaspirin 81 mg tablet, enteric coated 81 mg = 1 tab, PO, Daily, # 30 tab, 1 Refill(s), Pharmacy: [facility] [id number], 172.72, cm, 02/08/20 7:17:00 CDT, Height, 142.002, kg, 02/08/20 7:17:00 CDT, Weight Start Date: 02/09/20 Stop Date: 04/09/20 Status: Orderedazithromycin + Sodium Chloride 0.9% IV 250 mL 500 mg, Route: IVPB, [id number], Dosing Weight 150.1, kg, Start date: 02/08/20 7:00:00 CDT, Duration: 3day, Stop date: 02/10/20 7:00:00 CDT, ABX Indication: Pneumonia, 0 Notes: (Same As: Zithromax IV) Start Date: 02/08/20 Stop Date: 02/09/20 Status: Discontinuedazithromycin 500 mg oral tablet 500 mg, 2 tab, Route: PO, Drug form: TAB, ONCE, Dosing Weight 142.002, kg, Start date: 02/09/20 9:21:00 CDT, Stop date: 02/09/20 9:21:00 CDT, ABX Indication: Pneumonia, 0 Notes: Take 1 hour before or 2 hours after meals.(Same As: Zithromax) Start Date: 02/09/20 Stop Date: 02/09/20 Status: Completedazithromycin 500 mg oral tablet 500 mg, Route: PO, Drug form: TAB, ONCE, Dosing Weight 142, kg, Start date: 02/08/20 4:22:00 CDT, Stop date: 02/08/20 4:22:00 CDT, ABX Indication: Pneumonia Start Date: 02/08/20 Stop Date: 02/08/20 Status: Completedcarvedilol 3.125 mg oral tablet 6.25 mg = 2 tab, PO, Q12H, # 120 tab, 1 Refill(s), Pharmacy: [facility] [id number], 172.72, cm, 02/08/20 7:17:00 CDT, Height, 142.002, kg, 02/08/20 7:17:00 CDT, Weight Start Date: 02/09/20 Stop Date: 04/09/20 Status: Orderedcefdinir 300 mg oral capsule 300 mg, 1 cap, Route: PO, Drug form: CAP, [id number], Dosing Weight 142.002, kg, Start date: 02/09/20 10:00:00 CDT, Duration: 30 day, Stop date: 03/09/20 22:00:00 LACQUER SPRAYER, 0 Notes: (Same As: Omnicef) Start Date: 02/09/20 Stop Date: 02/09/20 Status: Discontinuedcefdinir 300 mg oral capsule 300 mg = 1 cap, PO, [id number], X 7 day, # 14 cap, 0 Refill(s), Pharmacy: [id number], 172.72,cm, 02/08/20 7:17:00 CDT, Height, 142.002, kg, 02/08/20 7:17:00 CDT, Weight Start Date: 02/09/20 Stop Date: 02/16/20 Status: OrderedcefTRIAXone + sterile water 10 mL 1 gm, Route: IVP, [id number], Dosing Weight 150.1, kg, Start date: 02/08/20 7:00:00 CDT, Duration: 7 day, Stop date: 02/14/20 7:00:00 CDT, ABX Indication: Pneumonia, 0 Notes: (Same As: Rocephin).Use with 100 mL NS and infuse over 30 min MEDICATION WASTE Product Size: 1000 mgProduct Wasted: ___ mg Start Date: 02/08/20 Stop Date: 02/09/20 Status: DiscontinuedcloNIDine 0.1 mg oral tablet 0.1 mg, 1 tab, Route: PO, Drug form: TAB, Q8H, Dosing Weight 142.002, kg, PRN, Start date: 02/08/20 8:12:00 CDT, Duration: 30 day, Stop date: 03/09/20 8:11:00 LACQUER SPRAYER, for SBP > 170 mm, 0 Notes: (Same As: Catapres) Start Date: 02/08/20 Stop Date: 02/09/20 Status: Discontinuedcodeine-guaiFENesin 10 mg-100 mg/5 mL oral syrup 5 mL, Route: PO, Drug Form: SYRP, Dosing Weight 150.1, kg, Q4H, PRN Cough, Start date: 02/08/20 6:30:00 CDT, Duration: 30 day, Stop date: 03/09/20 6:29:00 LACQUER SPRAYER, 0 Notes: (Same As: Alekseysin BLAIR) Start Date: 02/08/20 Stop Date: 02/09/20 Status: DiscontinuedCoreg 3.125 mg, 1 tab, Route: PO, Drug form: TAB, Q12H, Dosing Weight 142.002, kg, Start date: 02/08/20 21:00:00 CDT, Duration: 30 day, Stop date: 03/09/20 9:00:00 LACQUER SPRAYER, 0 Notes: Give with food. (Same As: Coreg) Start Date: 02/08/20 Stop Date: 02/09/20 Status: DiscontinuedCoreg 6.25 mg, 2 tab, Route: PO, Drug form: TAB, Q12H, Dosing Weight 142.002, kg, Start date: 02/09/20 21:00:00 CDT, Duration: 30 day, Stop date: 03/10/20 9:00:00 LACQUER SPRAYER, 0 Notes: Give with food. (Same As: Coreg) Start Date: 02/09/20 Stop Date: 02/09/20 Status: CanceledCoreg 3.125 mg, 1 tab, Route: PO, Drug form: TAB, ONCE, Dosing Weight 142.002, kg, Start date: 02/09/20 12:15:00 CDT, Stop date: 02/09/20 12:15:00 CDT, 0 Notes: Give with food. (Same As: Coreg) Start Date: 02/09/20 Stop Date: 02/09/20 Status: Orderedenoxaparin 40 mg, 0.4 mL, Route: SUB-Q, Drug form: INJ, [id number], Dosing Weight 150.1, kg, Consider for obese patients, Start date: 02/08/20 7:00:00 CDT, Duration: 30 day, Stop date: 03/08/20 19:00:00 LACQUER SPRAYER, 0 Notes: (Same as: Lovenox) Start Date: 02/08/20 Stop Date: 02/09/20 Status: DiscontinuedhydrALAZINE 25 mg oral tablet 25 mg, 1 tab, Route: PO, Drug form: TAB, TID, Dosing Weight 142.002, kg, Start date: 02/09/20 13:00:00 CDT, Duration: 30 day, Stop date: 03/10/20 9:00:00 LACQUER SPRAYER, 0 Notes: (Same as: Apresoline) May interfere w/enteral feedings Take With Food. Start Date: 02/09/20 Stop Date: 02/09/20 Status: DiscontinuedhydrALAZINE 25 mg oral tablet 25 mg = 1 tab, PO, TID, # 90 tab, 1 Refill(s), Pharmacy: [facility] [facility] [id number], 172.72, cm, 02/08/20 7:17:00 CDT, Height, 142.002, kg, 02/08/20 7:17:00 CDT, Weight Start Date: 02/09/20 Stop Date: 04/09/20 Status: Orderedinfluenza virus vaccine, inactivated 0.5 mL, Route: IM, Drug Form: SUSP, ONCALL, Start date: 02/08/20 7:26:58 CDT, Stop date: 03/09/20 7:21:58 LACQUER SPRAYER, 0 Notes: (Same as: Fluzone Quadrivalent, Fluarix Quadrivalent)For patients 6 - 35 months of age (0.5 mL IM)For 3 years of age and older (0.5 mL IM)Shake well before use Start Date: 02/08/20 Stop Date: 02/09/20 Status: Discontinuedlabetalol 20 mg, Route: IVP, Drug form: INJ, ONCE, Dosing Weight 142, kg, Start date: 02/08/20 6:14:00 CDT, Stop date: 02/08/20 6:14:00 CDT Start Date: 02/08/20 Stop Date: 02/08/20 Status: CompletedLasix 40 mg, 4 mL, Route: IVP, Drug form: INJ, BID Diuretic, Dosing Weight 142.002, kg, Start date: 02/08/20 16:00:00 CDT, Duration: 30 day, Stop date: 03/09/20 8:00:00 LACQUER SPRAYER, 0 Notes: (Same as: Lasix) MEDICATION WASTE Product Size: 40 mgProduct Wasted: ___ mg Start Date: 02/08/20 Stop Date: 02/09/20 Status: DiscontinuedLasix 40 mg oral tablet 40 mg, 1 tab, Route: PO, Drug form: TAB, Daily, Dosing Weight 142.002, kg, Start date: 02/10/20 9:00:00 CDT, Duration: 30 day, Stop date: 03/10/20 9:00:00 LACQUER SPRAYER, 0 Notes: (Same as: Lasix) May cause GI upset. Give with food or milk. Start Date: 02/10/20 Stop Date: 02/09/20 Status: CanceledLasix 40 mg oral tablet 40 mg = 1 tab, PO, Daily, # 30 tab, 0 Refill(s), Pharmacy: [facility] [facility] [id number], 172.72, cm, 02/08/20 7:17:00 CDT, Height, 142.002, kg, 02/08/20 7:17:00 CDT, Weight Start Date: 02/09/20 Stop Date: 03/10/20 Status: OrderedLovenox 40 mg, 0.4 mL, Route: SUB-Q, Drug form: INJ, [id number], Dosing Weight 142.002, kg, Start date: 02/08/20 9:00:00 CDT, Duration: 30 day, Stop date: 03/08/20 9:00:00 LACQUER SPRAYER, 0 Notes: (Same as: Lovenox) Start Date: 02/08/20 Stop Date: 02/09/20 Status: DiscontinuedmethylPREDNISolone SODium SUCCinate 40 mg, 1 mL, Route: IVP, Drug form: INJ, Q12H, Dosing Weight 150.1, kg, Start date: 02/08/20 9:00:00CDT, Duration: 5 day, Stop date: 02/12/20 21:00:00 CDT, 0 Notes: (Same as:Solu-MEDROL, A-Methapred) Start Date: 02/08/20 Stop Date: 02/09/20 Status: DiscontinuedNorvasc 10 mg, 2 tab, Route: PO, Drug form: TAB, Daily, Dosing Weight 142.002, kg, Start date: 02/08/20 9:00:00 CDT, Duration: 30 day, Stop date: 03/08/20 9:00:00 LACQUER SPRAYER, 0 Notes: (Same as: Norvasc) Start Date: 02/08/20 Stop Date: 02/09/20 Status: Discontinuedondansetron 4 mg, 2 mL, Route: IVP, Drug form: INJ, Q6H, Dosing Weight 150.1, kg, PRN Nausea & Vomiting, Start date: 02/08/20 6:30:00 CDT, Duration: 30 day, Stop date: 03/09/20 6:29:00 LACQUER SPRAYER, 0 Notes: (Same as: Yarelis) MEDICATION WASTE Product Size: 4 mgProduct Wasted: ___ mg Start Date: 02/08/20 Stop Date: 02/09/20 Status: DiscontinuedpredniSONE 20 mg oral tablet 40 mg = 2 tab, PO, Daily, X 5 day, # 10 tab, 0 Refill(s), Pharmacy: [facility] [facility] [id number], 172.72, cm, 02/08/20 7:17:00 CDT, Height, 142.002, kg, 02/08/20 7:17:00 CDT, Weight Start Date: 02/09/20 Stop Date: 02/14/20 Status: OrderedPulmicort Respules 0.5 mg, 2 mL, Route: NEB, Drug form: SUSP, RBID, Start date: 02/08/20 9:22:00 CDT, Duration: 30 day,Stop date: 03/09/20 8:00:00 LACQUER SPRAYER, 0 Notes: (Same As: Pulmicort) Start Date: 02/08/20 Stop Date: 02/09/20 Status: DiscontinuedRocephin 1 gm, Route: IVPB, Drug form: PDR/INJ, ONCE, Dosing Weight 142, kg, Priority: STAT, Start date: 02/08/20 4:22:00 CDT, Stop date: 02/08/20 4:22:00 CDT, ABX Indication: Pneumonia Start Date: 02/08/20 Stop Date: 02/08/20 Status: CompletedSolu-MEDROL 125 mg, 2 mL, Route: IVP, Drug form: INJ, ONCE, Dosing Weight 142, kg, Priority: STAT, Start date: 02/08/20 3:29:00 CDT, Stop date: 02/08/20 3:29:00 CDT, 0 Notes: (Same as:Solu-MEDROL, A-Methapred) Start Date: 02/08/20 Stop Date: 02/08/20 Status: Completed Results Most recent to oldest [Reference Range]: 1 2 Neutrophils # [1.5-8.1 K/CMM] 7.1 K/CMM (02/08/20 2:32 AM) Lymphocytes # [1.0-5.5 K/CMM] 2.1 K/CMM (02/08/20 2:32 AM) Monocytes # [0.0-0.8 K/CMM] 0.8 K/CMM (02/08/20 2:32 AM) Eosinophils # [0.0-0.5 K/CMM] 0.8 K/CMM *HI* (02/08/20 2:32 AM) Basophils # [0.0-0.2 K/CMM] 0.1 K/CMM (02/08/20 2:32 AM) BNP [<=100 pg/mL] 245 pg/mL *HI* (02/08/20 2:32 AM) eGFR 74 mL/min/1.73m2 1 *NA* (02/08/20 2:32 AM) A/G Ratio [0.7-1.6] 0.7 (02/08/20 2:32 AM) Albumin Lvl [3.5-5.0 g/dL] 3.2 g/dL *LOW* (02/08/20 2:32 AM) Alk Phos [39-136 unit/L] 87 unit/L (02/08/20 2:32 AM) ALT [0-65 unit/L] 27 unit/L (02/08/20 2:32 AM) AGAP [10.0-20.0 mEq/L] 11.5 mEq/L (02/08/20 2:32 AM) AST [0-37 unit/L] 23 unit/L (02/08/20 2:32 AM) B/C Ratio [6-25] 10 (02/08/20 2:32 AM) Basophils [0.0-1.0 %] 0.7 % (02/08/20 2:32 AM) BUN [7-22 mg/dL] 15 mg/dL (02/08/20 2:32 AM) Calcium Lvl [8.5-10.5 mg/dL] 8.7 mg/dL (02/08/20 2:32 AM) Chloride Lvl [95-109 mEq/L] 107 mEq/L (02/08/20 2:32 AM) CO2 [24-32 mEq/L] 26 mEq/L (02/08/20 2:32 AM) Creatinine Lvl [0.50-1.40 mg/dL] 1.43 mg/dL *HI* (02/08/20 2:32 AM) D-Dimer 1.27 ug/mL FEU *NA* (02/08/20 2:04 PM) Eosinophils [0.0-4.0 %] 7.7 % *HI* (02/08/20 2:32 AM) Globulin [2.7-4.2 g/dL] 4.3 g/dL *HI* (02/08/20 2:32 AM) Glucose Lvl [70-99 mg/dL] 100 mg/dL *HI* (02/08/20 2:32 AM) Hct [42.0-54.0 %] 35.1 % *LOW* (02/08/20 2:32 AM) Hgb [14.0-18.0 g/dL] 11.6 g/dL *LOW* (02/08/20 2:32 AM) Potassium Lvl [3.5-5.1 mEq/L] 3.5 mEq/L (02/08/20 2:32 AM) Lactic Acid Lvl [0.5-2.2 mMol/L] 1.7 mMol/L 2.5 mMo l/L (02/08/20 4:49 PM) *HI* (02/08/20 2:04 PM) Lymphocytes [20.0-40.0 %] 19.0 % *LOW* (02/08/20 2:32 AM) MCH [27.0-31.0 pg] 28.0 pg (02/08/20 2:32 AM) MCHC [32.0-36.0 g/dL] 33.1 g/dL (02/08/20 2:32 AM) MCV [80.0-94.0 fL] 84.4 fL (02/08/20 2:32 AM) Monocytes [2.0-12.0 %] 7.1 % (02/08/20 2:32 AM) MPV [7.4-10.4 fL] 7.4 fL (02/08/20 2:32 AM) Sodium Lvl [135-145 mEq/L] 141 mEq/L (02/08/20 2:32 AM) Platelet [133-450 K/CMM] 412 K/CMM (02/08/20 2:32 AM) Segs [45.0-75.0 %] 65.5 % (02/08/20 2:32 AM) Total Protein [6.4-8.4 g/dL] 7.5 g/dL (02/08/20 2:32 AM) Coronavirus (COVID-19) EDISON [Not Detected] Not Detected (02/08/20 4:40 AM) RBC [4.70-6.10 M/CMM] 4.16 M/CMM *LOW* (02/08/20 2:32 AM) RDW [11.5-14.5 %] 14.3 % (02/08/20 2:32 AM) Bili Total [0.2-1.3 mg/dL] 0.4 mg/dL (02/08/20 2:32 AM) Troponin-I [0.00-0.40 ng/mL] 0.12 ng/mL (02/08/20 2:32 AM) WBC [3.7-10.4 K/CMM] 10.8 K/CMM *HI* (02/08/20 2:32 AM) Influenza A PCR [Negative] Negative *NA* (02/08/20 4:49 PM) Influenza B PCR [Negative] Negative *NA* (02/08/20 4:49 PM) RSV PCR [Negative] Negative *NA* (02/08/20 4:49 PM) Source Respiratory Panel PCR Nasophrngl Swb *NA* (02/08/20 4:49 PM) 1Result Comment: The eGFR is calculated using the CKD-EPI formula. In most young, healthy individualsthe eGFR will be >90 mL/min/1.73m2. The eGFR declines with age. An eGFR of 60-89 may be normal insome populations, particularly the elderly, for whom the CKD-EPI formula has not been extensively validated. Use of the eGFR is not recommended in the following populations: Individuals with unstable creatinine concentrations, including patients and those with serious co-morbid conditions. Patients with extremes in muscle mass or diet. The data above are obtained from the National Kidney Disease Education Program (NKDEP) which additionally recommends that when the eGFR is used in patients with extremes of body mass index for purposesof drug dosing, the eGFR should be multiplied by the estimated BMI.Microbiology Reports TEST:Culture: Respiratory w/Gram Stain STATUS:Auth (Verified) BODY SITE: SOURCE:Sputum COLLECTED DATE/TIME:02/08/20 10:46 PMFINAL REPORTFew Yeast Isolated Normal Respiratory Kenia IsolatedSTAIN REPORTGram Stain Performed By: [facility] Immunizations Given and Recorded Vaccine Date Status Refusal Reason pneumococcal 23-valent vaccine 07/31/11 Given Procedures No data available for this section Social History Social History Type Response Alcohol Current, Type Beer, Wine, Li quor. Frequency: 1-2 times per year. Substance Abuse Use: None. Recreational Carlton g Route: Oral. Smoking Status Never smoker; Exposure to To bacco Smoke None; Cigarette Smoking Last 365 Days No; Reg Smoking Cessation Counseling No entered on: 02/08/20 Assessment and Plan Extracted from: Title: Clinical Document Author: Donato Marrufo MD Date: 02/08 [facility] Initial Cardiology Consultation Note Reason for Consult: Heart failure evalua tion Chief Complaint: Shortness of breath HPI: 34-year-old [...] No fever. No chills. No dizziness. No weakness. EYES: No pain, erythema, or discharge. N o blurring of vision. EAR, NOSE AND THROAT: No sore throat, UR I symptoms. No epistaxis. No tinnitus. CARDIOVASCULAR: No chest pain. No palpit ations. No lower extremity edema. RESPIRATORY: + shortness of breath, coug h, pain with respiration, or pleuritic chest pain. No hemoptysis. No dyspnea. No paroxysmal nocturnal dyspnea. GASTROINTESTINAL: Normal appetite. No na usea, vomiting, diarrhea. No pain. No bloating. No melena. GENITOURINARY: No frequency, urgency, no cturia. No hematuria or dysuria. MUSCULOSKELETAL: No arthralgias or myalg ias. INTEGUMENTARY: No swelling. No bruising. No contusions. No abrasions. No lymphangitis. NEUROLOGIC: No headache. No neck pain. N o numbness or tingling of the extremities. No weakness. PSYCHIATRIC: No confusion. METABOLIC: No fatigue. No weakness. No h istory of thyroid, diabetes or adrenal problems. HEMATOLOGICAL: No bleeding. No petechiae . No bruising. ALLERGY: No asthma. No urticaria. [...] treated with IV antibiotics. He has had significan t amount improvement in his symptoms wit h antibiotics and IV Lasix. He says he feels almost back to his normal self now and wants to go home. I have transition to oral Lasix. I have switched him from amlodipine to hydralazine for heart jaquelin lure therapy. His carvedilol has been increased to 6.25 mg p.o. twice a day. No ASHLIE inhibitor or angiotensin receptor laurent due to elevated creatinine. Patie nt's heart rates remain improved through out the day today, patient be stable for discharge with close follow-up as an outpatient. Patient will see me within the next 2 weeks via telemedicine if he is discharged. Continuous Infusions: None Scheduled Meds (9): 02/08/20 albuterol 2.49 mg NEB RQID 02/08/20 amLODIPine (Norvasc) 10 mg PO D aily 02/08/20 budesonide (Pulmicort Respules) 0.5 mg NEB RBID 02/08/20 carvedilol (Coreg) 3.125 mg PO Q12H 02/09/20 cefdinir (cefdinir 300 mg oral capsule) 300 mg PO [id number] 02/08/20 enoxaparin 40 mg SUB-Q [id number] 02/08/20 enoxaparin (Lovenox) 40 mg SUB- Q [id number] 02/08/20 furosemide (Lasix) 40 mg IVP BI D Diuretic 02/08/20 methylPREDNISolone (methylPREDN ISolone SODium SUCCinate) 40 mg IVP Q12H Extracted from: Title: History and Physical Author: Sharad Palacios MD Date: 1 1.Dyspnea(R06.0) Multifactorial likely secondary pneumo thuy, asthma exacerbation,organism unspecified, uncontrolled hypertension,possible acute on [...] 18:12 CDT Echo with low EF and diastol ic heart failure as well Cardiology consult Start COreg, Add ACEI once A KI resolves
--- OUTSIDE RECORDS SUMMARY | 2020-04-26 14:19 | XMS REPORT | Summary of Care ---
:1985 Author Organization [facility] spital Address [address] [place] [address]- Encounter HQ Anthonyntr_stephy(FIN) [id number] Date(s): 02/08/20 - 02/09/20 [facility] [id number] [place] [phone] Discharge Disposition: Home or Self Care Attending [...] Duration: 30 day, Stop date: 03/09/20 6:29:00 PATROL LADY, 0 Notes: Do not exceed 4 gm/day. (Same as: Tylenol) Start Date: 02/08/20 Stop Date: 02/09/20 Status: DiscontinuedAdvair Diskus 250 mcg-50 mcg inhalation powder 1 inhalation, Route: INHALATION, Drug Form: AERO, Dosing Weight 142.002, kg, BID, Start date: 02/08/20 9:00:00 CDT, Duration: 30 day, Stop date: 03/08/20 17:00:00 PATROL LADY Start Date: 02/08/20 Stop Date: 02/08/20 Status: Deletedalbuterol 2.49 mg, 3 mL, Route: NEB, Drug form: PACO, RQID, Start date: 02/08/20 11:00:00 CDT, Duration: 30 day, Stop date: 03/09/20 7:00:00 PATROL LADY, 0 Notes: SEE RT DOCUMENTATION (Same as: [...] Duration: 30 day, Stop date: 03/09/20 5:29:00 PATROL LADY, 0 Notes: (Same as: Duoneb) Start Date: 02/08/20 Stop Date: 02/09/20 Status: Discontinuedaspirin 81 mg tablet, enteric coated 81 mg, 1 tab, Route: PO, Drug form: ECTAB, Daily, Dosing Weight 142.002, kg, Start date: 02/10/20 9:00:00 CDT, Duration: 30 day, Stop date: 03/10/20 9:00:00 PATROL LADY, 0 Notes: Do not crush or chew.(Same As: Ecotrin) Start Date: 02/10/20 Stop Date: 02/09/20 Status: Canceledaspirin 81 mg tablet, enteric coated 81 mg = 1 tab, PO, Daily, # 30 tab, 1 Refill(s), Pharmacy: [facility] [address], 172.72, cm, 02/08/20 7:17:00 CDT, Height, 142.002, kg, 02/08/20 7:17:00 CDT, Weight Start Date: 02/09/20 Stop Date: 04/09/20 Status: Orderedazithromycin + Sodium Chloride 0.9% IV 250 mL 500 mg, Route: IVPB, [id number], Dosing Weight 150.1, kg, Start date: 02/08/20 [...] Q12H, # 120 tab, 1 Refill(s), Pharmacy: [facility] [address], 172.72, cm, 02/08/20 7:17:00 CDT, Height, 142.002, kg, 02/08/20 7:17:00 CDT, Weight Start Date: 02/09/20 Stop Date: 04/09/20 Status: Orderedcefdinir 300 mg oral capsule 300 mg, 1 cap, Route: PO, Drug form: CAP, [id number], Dosing Weight 142.002, kg, Start date: 02/09/20 10:00:00 CDT, Duration: 30 day, Stop date: 03/09/20 22:00:00 PATROL LADY, 0 Notes: (Same As: Omnicef) Start Date: 02/09/20 Stop Date: 02/09/20 Status: Discontinuedcefdinir 300 mg oral capsule 300 mg = 1 cap, PO, [id number], X 7 day, # 14 cap, 0 Refill(s), Pharmacy: [facility], 172.72,cm, 02/08/20 7:17:00 CDT, Height, 142.002, kg, 02/08/20 7:17:00 CDT, Weight Start Date: 02/09/20 Stop Date: 02/16/20 Status: OrderedcefTRIAXone + sterile water 10 mL 1 gm, Route: IVP, [id number], Dosing Weight 150.1, kg, Start date: 02/08/20 [...] Duration: 30 day, Stop date: 03/09/20 8:11:00 PATROL LADY, for SBP > 170 mm, 0 Notes: (Same As: Catapres) Start Date: 02/08/20 Stop Date: 02/09/20 Status: Discontinuedcodeine-guaiFENesin 10 mg-100 mg/5 mL oral syrup 5 mL, Route: PO, Drug Form: SYRP, Dosing Weight 150.1, kg, Q4H, PRN Cough, Start date: 02/08/20 6:30:00 CDT, Duration: 30 day, Stop date: 03/09/20 6:29:00 PATROL LADY, 0 Notes: (Same As: Alekseysin BLAIR) Start Date: 02/08/20 Stop Date: 02/09/20 Status: DiscontinuedCoreg 3.125 mg, 1 tab, Route: PO, Drug form: TAB, Q12H, Dosing Weight 142.002, kg, Start date: 02/08/20 21:00:00 CDT, Duration: 30 day, Stop date: 03/09/20 9:00:00 PATROL LADY, 0 Notes: Give with food. (Same As: Coreg) Start Date: 02/08/20 Stop Date: 02/09/20 Status: DiscontinuedCoreg 6.25 mg, 2 tab, Route: PO, Drug form: TAB, Q12H, Dosing Weight 142.002, kg, Start date: 02/09/20 21:00:00 CDT, Duration: 30 day, Stop date: 03/10/20 9:00:00 PATROL LADY, 0 Notes: Give with food. (Same As: [...] 0.4 mL, Route: SUB-Q, Drug form: INJ, [id number], Dosing Weight 150.1, kg, Consider for obese patients, Start date: 02/08/20 7:00:00 CDT, Duration: 30 day, Stop date: 03/08/20 19:00:00 PATROL LADY, 0 Notes: (Same as: Lovenox) Start Date: 02/08/20 Stop Date: 02/09/20 Status: DiscontinuedhydrALAZINE 25 mg oral tablet 25 mg, 1 tab, Route: PO, Drug form: TAB, TID, Dosing Weight 142.002, kg, Start date: 02/09/20 13:00:00 CDT, Duration: 30 day, Stop date: 03/10/20 9:00:00 PATROL LADY, 0 Notes: (Same as: Apresoline) May interfere w/enteral feedings Take With Food. Start Date: 02/09/20 Stop Date: 02/09/20 Status: DiscontinuedhydrALAZINE 25 mg oral tablet 25 mg = 1 tab, PO, TID, # 90 tab, 1 Refill(s), Pharmacy: [facility] [address], 172.72, cm, 02/08/20 7:17:00 CDT, Height, 142.002, kg, 02/08/20 7:17:00 CDT, Weight Start Date: 02/09/20 Stop Date: 04/09/20 Status: Orderedinfluenza virus vaccine, inactivated 0.5 mL, Route: IM, Drug Form: SUSP, ONCALL, Start date: 02/08/20 7:26:58 CDT, Stop date: 03/09/20 7:21:58 PATROL LADY, 0 Notes: (Same as: Fluzone Quadrivalent, Fluarix [...] Duration: 30 day, Stop date: 03/09/20 8:00:00 PATROL LADY, 0 Notes: (Same as: Lasix) MEDICATION WASTE Product Size: 40 mgProduct Wasted: ___ mg Start Date: 02/08/20 Stop Date: 02/09/20 Status: DiscontinuedLasix 40 mg oral tablet 40 mg, 1 tab, Route: PO, Drug form: TAB, Daily, Dosing Weight 142.002, kg, Start date: 02/10/20 9:00:00 CDT, Duration: 30 day, Stop date: 03/10/20 9:00:00 PATROL LADY, 0 Notes: (Same as: Lasix) May cause GI upset. Give with food or milk. Start Date: 02/10/20 Stop Date: 02/09/20 Status: CanceledLasix 40 mg oral tablet 40 mg = 1 tab, PO, Daily, # 30 tab, 0 Refill(s), Pharmacy: [facility] [address], 172.72, cm, 02/08/20 7:17:00 CDT, Height, 142.002, kg, 02/08/20 7:17:00 CDT, Weight Start Date: 02/09/20 Stop Date: 03/10/20 Status: OrderedLovenox 40 mg, 0.4 mL, Route: SUB-Q, Drug form: INJ, [id number], Dosing Weight 142.002, kg, Start date: 02/08/20 9:00:00 CDT, Duration: 30 day, Stop date: 03/08/20 9:00:00 PATROL LADY, 0 Notes: (Same as: Lovenox) Start Date: [...] Duration: 30 day, Stop date: 03/08/20 9:00:00 PATROL LADY, 0 Notes: (Same as: Norvasc) Start Date: 02/08/20 Stop Date: 02/09/20 Status: Discontinuedondansetron 4 mg, 2 mL, Route: IVP, Drug form: INJ, Q6H, Dosing Weight 150.1, kg, PRN Nausea & Vomiting, Start date: 02/08/20 6:30:00 CDT, Duration: 30 day, Stop date: 03/09/20 6:29:00 PATROL LADY, 0 Notes: (Same as: Yarelis) MEDICATION WASTE Product Size: 4 mgProduct Wasted: ___ mg Start Date: 02/08/20 Stop Date: 02/09/20 Status: DiscontinuedpredniSONE 20 mg oral tablet 40 mg = 2 tab, PO, Daily, X 5 day, # 10 tab, 0 Refill(s), Pharmacy: [facility] [address], 172.72, cm, 02/08/20 7:17:00 CDT, Height, 142.002, kg, 02/08/20 7:17:00 CDT, Weight Start Date: 02/09/20 Stop Date: 02/14/20 Status: OrderedPulmicort Respules 0.5 mg, 2 mL, Route: NEB, Drug form: SUSP, RBID, Start date: 02/08/20 9:22:00 CDT, Duration: 30 day,Stop date: 03/09/20 8:00:00 PATROL LADY, 0 Notes: (Same As: Pulmicort) Start Date: [...] Respiratory Kenia IsolatedSTAIN REPORTGram Stain Performed By: [facility] Immunizations Given and Recorded Vaccine Date Status [...] Document Author: Donato Marrufo MD Date: 02/08 [facility] Initial Cardiology Consultation Note Reason [...] 300 mg oral capsule) 300 mg PO [id number] 02/08/20 enoxaparin 40 mg SUB-Q [id number] 02/08/20 enoxaparin (Lovenox) 40 mg SUB- Q [id number] 02/08/20 furosemide (Lasix) 40 mg IVP BI [...]
--- OUTSIDE RECORDS SUMMARY | 2020-04-26 14:20 | XMS REPORT | Continuity of Care Document ---
:1985 Author Organization [facility] t Address [address] [place] [address] Care Team Providers Name Role Phone Reji Magallon Attending Clinician Bora Horn Attending Clinician Reji Magallon Admitting Clinician Problems Condition Condition Condition Status Onset Resolution Last Treating Co mments Source Name Details Category Date Date Treatment Clinician Date PNA, Diagnosis Active 2019-052020-02-08 [facility] DYSPNEA, 0-06 08:52:00 l HYPOXIA PNA, 00:00: [place] DYSPNEA, 00 HYPOXIA Active 02/08/2020 [facility] [place] Diagnosis Active 2019-052020-02-08 Mem [facility] 0-06 03:31:00 l 00:00: [place] 00 Active 02/08/2020 [facility] [place] ASTHMA Diagnosis Active 2020-01-09 Mem [facility] 01-07 09:07:00 l ASTHMA 08:57: [place] 00 Active 01/08/2020 [facility] [place] Asthma Problem Active 2020-02-14 Mem[facility] (disorder) 07:10:46 l Asthma [place] (disorder) Active Problem 02/14/2020 [place] PNEUMONIA, Diagnosis Active 2020-02-08 [facility] UNSPECIFIE 08:52:00 l D ORGANISM Demario n PNEUMONIA, UNSPECIFIE D ORGANISM Active [facility] [place] DYSPNEA, Diagnosis Active 2020-02-08 M emoria UNSPECIFIE 08:52:00 l D DYSPNEA, Demario n UNSPECIFIE D Active [facility] [place] HYPOXEMIA Diagnosis Active 2020-02-08 Memoria 08:52:00 l [place] HYPOXEMIA Active [facility] [place] Essential Problem 2019-2020-01-11 2020-01-11 [facility] (primary) 01-08 21:14:11 21:14:11 l hypertensi 17:00: Demario n on Essential 00 (primary) hypertensi on 01/09/2020 01/11/2020 [facility] Unspecifie Problem 2020-01-11 2020-01-11 Memoria d asthma 01-08 21:14:11 21:14:11 l with 17:00: [place] (acute) Unspecifie 00 exacerbati d asthma on with (acute) exacerbati on 01/09/2020 01/11/2020 [facility] Sleep Problem 2020-01-11 2020-01-11 M emoria apnea, 01-08 21:14:11 21:14:11 l unspecifie Sleep 17:00: Hannah nn d apnea, 00 unspecifie d 01/09/2020 01/11/2020 [facility] Allergies, Adverse Reactions, Alerts Allergy Allergy Status Severity Reaction(s) Onset Inactive Treating Comm ents Source Name Type Date Date Clinician No Known No Known Active Memori a Medicati Medicati l on on [place] Allergyumi Allergyumi s s Social History Social Habit Start Date Stop Date Quantity Comments Source Social History 2020-02-08 2020-02-08 [facility] Donte ledesmaaustin 12:23:54 12:23:54 Medications Ordered Filled Start Stop Current Ordering Indication Dosage Frequency Signature Comments Components Source Medication Medication Date Date Medication? Clinician (SIG) Name Name Furosemide 2019-05 No Notes: Memor ia 40 MG Oral 0-08 (Same as: l Tablet 14:00: Lasix) [place] [Lasix] 00 May cause GI upset. Give with food or milk. Aspirin 81 2019-05 No Notes: Do Me moria MG Enteric 0-08 not crush l Coated 14:00: or chew. [place] Tablet 00 (Same As: Ecotrin) Coreg 2019-05 No Notes: Memoria 0-08 Give with l 02:00: food. [place] 00 (Same As: Coreg) Aspirin 81 2019-05 Yes 81 mg = 1 Me moria MG Enteric 0-07 tab, PO, l Coated 18:26: Daily, # [place] Tablet 00 30 tab, 1 Refill(s), Pharmacy: [facility], 172.72, cm, 02/08/20 7:17:00 CDT, Height, 142.002, kg, 02/08/20 7:17:00 CDT, Weight carvedilol 2019-05 Yes 6.25 mg = Me moria 3.125 mg 0-07 2 tab, PO, l oral tablet 18:26: Q12H, # Her garcia 00 120 tab, 1 Refill(s), Pharmacy: [facility] [address], 172.72, cm, 02/08/20 7:17:00 CDT, Height, 142.002, kg, 02/08/20 7:17:00 CDT, Weight cefdinir 2019-05 Yes 300 mg = 1 Mem oria 300 MG Oral 0-07 cap, PO, l Capsule 18:26: [id number], X Herm austin 00 7 day, # 14 cap, 0 Refill(s), Pharmacy: [facility] [address], 172.72, cm, 02/08/20 7:17:00 CDT, Height, 142.002, kg, 02/08/20 7:17:00 CDT, Weight Hydralazine 2019-05 Yes 25 mg = 1 M emoria Hydrochlori 0-07 tab, PO, l de 25 MG 18:26: TID, # 90 Herm austin Oral Tablet 00 tab, 1 Refill(s), Pharmacy: [facility] [address], 172.72, cm, 02/08/20 7:17:00 CDT, Height, 142.002, kg, 02/08/20 7:17:00 CDT, Weight Furosemide 2019-05 Yes 40 mg = 1 Me moria 40 MG Oral 0-07 tab, PO, l Tablet 18:26: Daily, # [place] [Lasix] 00 30 tab, 0 Refill(s), Pharmacy: [facility] [address], 172.72, cm, 02/08/20 7:17:00 CDT, Height, 142.002, kg, 02/08/20 7:17:00 CDT, Weight predniSONE 2019-05 Yes 40 mg = 2 Me moria 20 mg oral 0-07 tab, PO, l tablet 18:26: Daily, X 5 Hannah nn 00 day, # 10 tab, 0 Refill(s), Pharmacy: [facility] [address], 172.72, cm, 02/08/20 7:17:00 CDT, Height, 142.002, kg, 02/08/20 7:17:00 CDT, Weight Hydralazine 2019-05 No Notes: Jack doc Hydrochlori 0-07 (Same as: l de 25 MG 18:00: Apresoline Her garcia Oral Tablet 00 ) May interfere w/enteral feedings Take With Food. Coreg 2019-05 Yes Notes: Memoria 0-07 Give with l 17:15: food. [place] (Same As: Coreg) cefdinir 2019-05 No Notes: [facility] 300 MG Oral 0-07 (Same As: l Capsule 15:00: Omnicef) Demario n 00 azithromyci 2019-05 No Notes: Jack doc n 500 mg 0-07 Take 1 l oral tablet 14:21: hour Demario n 00 before or 2 hours after meals. (Same As: Zithromax) Coreg 2019-05 No Notes: Memoria 0-07 Give with l 02:00: food. Ottoniel (Same As: Coreg) Lasix 2019-05 No Notes: Memoria 0-06 (Same as: l 21:00: Lasix) MEDICATION WASTE Product Size: 40 mg Product Wasted: ___ mg albuterol 2019-05 No Notes: SEE Me moria 0-06 RT l 16:00: DOCUMENTAT [place] ION (Same as: Proventil) Pulmicort 2019-05 No Notes: Memori a Respules 0-06 (Same As: l 14:22: Pulmicort) [place] 00 methylPREDN 2019-05 No Notes: Jack doc ISolone 0-06 (Same l SODium 14:00: as:Solu-ME Hannah nn SUCCinate 00 DROL, A-Methapre d) Lovenox 2019-05 No Notes: Memoria 0-06 (Same as: l 14:00: Lovenox) [place] Advair 2019-05 No 1 [facility] Diskus 250 0-06 inhalation l mcg-50 mcg 14:00: , Route: Her garcia inhalation 00 INHALATION powder , Drug Form: AERO, Dosing Weight 142.002, kg, BID, Start date: 02/08/20 9:00:00 CDT, Duration: 30 day, Stop date: 03/08/20 17:00:00 WELLNESS NURSE RN Norvasc 2019-05 No Notes: Memoria 0-06 (Same as: l 14:00: Norvasc) [place] 00 Clonidine 2019-05 No Notes: Memori a Hydrochlori 0-06 (Same As: l de 0.1 MG 13:12: Catapres) Her garcia Oral Tablet 00 influenza 2019-05 No Notes: Memori a virus 0-06 (Same as: l vaccine, 12:26: Fluzone Demario n inactivated 58 Quadrivale nt, Fluarix Quadrivale nt) For patients 6 - 35 months of age (0.5 mL IM) For 3 years of age and older (0.5 mL IM) Shake well before use Azithromyci 2019-05 No Notes: Jack doc n 0-06 (Same As: l 12:00: Zithromax IV) Ceftriaxone 2019-05 No Notes: Jack doc 0-06 (Same As: l 12:00: Rocephin). Use with 100 mL NS and infuse over 30 min MEDICATION WASTE Product Size: 1000 mg Product Wasted: ___ mg Enoxaparin 2019-05 No Notes: Memor ia 0-06 (Same as: l 12:00: Lovenox) Acetaminoph 2019-05 No Notes: Do M emoria en 0-06 not exceed l 11:30: 4 gm/day. (Same as: Tylenol) Codeine 2019-05 No Notes: Memoria Phosphate 2 0-06 (Same As: l MG/ML / 11:30: Robitussin Guaifenesin 00 AC) 20 MG/ML Oral Solution Ondansetron 2019-05 No Notes: Jack doc 0-06 (Same as: l 11:30: Zofran) MEDICATION WASTE Product Size: 4 mg Product Wasted: ___ mg Albuterol 2019-05 No Notes: Memori a 0.833 MG/ML 0-06 (Same as: l / 11:30: Duoneb) Ipratropium 00 [place] 0.167 MG/ML Inhalant Solution Labetalol 2019-05 No 20 mg, Memori a 0-06 Route: l 11:14: IVP, Drug form: INJ, ONCE, Dosing Weight 142, kg, Start date: 02/08/20 6:14:00 CDT, Stop date: 02/08/20 6:14:00 CDT Rocephin 2019-05 No 1 gm, Memoria 0-06 Route: l 09:22: IVPB, Drug Ottoniel 00 form: PDR/INJ, ONCE, Dosing Weight 142, kg, Priority: STAT, Start date: 02/08/20 4:22:00 CDT, Stop date: 02/08/20 4:22:00 CDT, ABX Indication : Pneumonia azithromyci 2019-05 No 500 mg, Mem oria n 500 mg 0-06 Route: PO, l oral tablet 09:22: Drug form: [place] TAB, ONCE, Dosing Weight 142, kg, Start date: 02/08/20 4:22:00 CDT, Stop date: 02/08/20 4:22:00 CDT, ABX Indication : Pneumonia Solu-Medrol 2019-05 No Notes: Jack doc 0 (Same l 08:29: as:Solu-ME [place] 00 DROL, A-Methapre d) Albuterol 2019-05 No Notes: Memori a 0.833 MG/ML 0- (Same as: l / 08:28: Duoneb) [place] Ipratropium 00 [place] 0.167 MG/ML Inhalant Solution Hydrochloro Yes 12.5 mg = M emoria thiazide 01-08 1 cap, PO, l 12.5 MG 15:58: Daily, # Demario n Oral 00 30 cap, 0 Capsule Refill(s) albuterol 2019- Yes 2 puff, Memor ia 90 mcg/inh 01-08 INHALATION l inhalation 15:58: , QID, # Her garcia aerosol 00 17 gm, 0 Refill(s) predniSONE 2019- Yes 20 mg = 1 Me moria 20 mg oral 9-06 tab, PO, l tablet 15:58: Daily, X 7 Hannah nn 00 day, # 7 tab, 0 Refill(s) Hydrochloro 2019-0 No Notes: Jack doc thiazide 01-08 (Same as: l 14:38: Microzide) [place] 00 With food. Albuterol No Notes: Memori a 0.833 MG/ML 01-08 (Same as: l / 13:40: Duoneb) [place] Ipratropium 00 [place] 0.167 MG/ML Inhalant Solution methylPREDN No Notes: Jack doc ISolone 01-08 (Same l SODium 13:40: as:Solu-ME Hannah nn SUCCinate 00 DROL, A-Methapre d) Vital Signs Vital Name Observation Time Observation Value Comments Source Temperature Oral (F) 2020-02-09 17:00:00 97.7 F [facility] [place] Heart Rate 2020-02-09 17:00:00 [facility] [place] Systolic (mm Hg) 2020-02-09 17:00:00 Jack rial [place] Diastolic (mm Hg) 2020-02-09 17:00:00 Mem orial [place] Temperature Oral (F) 2020-02-09 13:00:00 97.7 F [facility] [place] Heart Rate 2020-02-09 13:00:00 [facility] [place] Systolic (mm Hg) 2020-02-09 13:00:00 Jack rial [place] Diastolic (mm Hg) 2020-02-09 13:00:00 Mem orial [place] Respitory Rate 2020-02-09 13:00:00 Memori al [place] Respitory Rate 2020-02-09 12:02:00 Memori al [place] Temperature Oral (F) 2020-02-09 09:00:00 98.1 F [facility] [place] Heart Rate 2020-02-09 09:00:00 [facility] [place] Respitory Rate 2020-02-09 09:00:00 Memori al [place] Systolic (mm Hg) 2020-02-09 09:00:00 Jack rial [place] Diastolic (mm Hg) 2020-02-09 09:00:00 Mem orial [place] Height 2020-02-08 12:17:00 172.72 cm [facility] [place] Weight 2020-02-08 12:17:00 [facility] [place] BMI Calculated 2020-02-08 12:17:00 Memori al [place] Height 2020-02-08 11:15:00 172.72 cm [facility] [place] Weight 2020-02-08 11:15:00 [facility] [place] BMI Calculated 2020-02-08 11:15:00 [facility] [place] Weight 2020-02-08 07:14:00 [facility] [place] Systolic (mm Hg) 2020-01-09 16:11:00 Jack rial [place] Diastolic (mm Hg) 2020-01-09 16:11:00 Mem orial [place] Heart Rate 2020-01-09 16:11:00 [facility] [place] Respitory Rate 2020-01-09 16:11:00 Memori al [place] Systolic (mm Hg) 2020-01-09 15:26:00 Jack rial [place] Diastolic (mm Hg) 2020-01-09 15:26:00 Mem orial [place] Heart Rate 2020-01-09 15:26:00 [facility] [place] Respitory Rate 2020-01-09 15:26:00 [facility] al [place] Respitory Rate 2020-01-09 13:54:00 [facility] al [place] Height 2020-01-09 13:27:00 172.72 cm [facility] [place] BMI Calculated 2020-01-09 13:27:00 Memori al [place] Weight 2020-01-09 13:27:00 [facility] [place] Systolic (mm Hg) 2020-01-09 13:27:00 Jack rial [place] Diastolic (mm Hg) 2020-01-09 13:27:00 Mem orial [place] Heart Rate 2020-01-09 13:27:00 [facility] [place] Temperature Oral (F) 2020-01-09 13:27:00 97.8 F [facility] Procedures This patient has no known procedures. Encounters Start End Encounter Admission Attending Care Care Encounter Source Date/Time Date/Time Type Type Clinicians Facility Department ID 2020-02-08 2020-02-09 Outpatient [facility] [id number] 02:13:22 14:00:00 , Reji 2020-02-08 2020-02-09 Outpatient [facility] [id number] 02:13:22 14:00:00 , Reji 2020-02-08 2020-02-08 Inpatient E [facility] MED [id number] [facility]BL 04:33:00 02:13:00 2020-01-09 2020-01-09 Outpatient SHAUN Horn [facility] [id number] 08:17:41 12:01:00 Hussein Sahni 03 2020-01-09 2020-01-09 Emergency E [facility] [id number] [facility]BL 08:17:00 08:17:00 Results Test Description Test Time Test Comments Results Result Sour e Comments CHEM PANEL 2020-02-08 1.7 [facility] 21:49:00 [place] MOLECULAR 2020-02-08 Nasophrngl [facility]b [facility] DIAGNOSTIC 21:49:00 *NA*(02/08/20 [place] 4:49 PM) MOLECULAR 2020-02-08 Negative [facility] DI[facility]NOST[facility] 21:49:00 *NA*(02/08/20 [place] 4:49 PM) MOLECULAR 2020-02-08 Negative [facility] DIAGNOSTIC 21:49:00 *NA*(02/08/20 [place] 4:49 PM) MOLECULAR 2020-02-08 Negative [facility] DIAGNOSTIC 21:49:00 *NA*(02/08/20 [place] 4:49 PM) CHEM PANEL 2020-02-08 2.5 [facility] 19:04:00 [place] HEMATOLOGY 2020-02-08 1.27 [facility] 19:04:00 [place] IMMUNOLOGY 2020-02-08 Not Detected [facility] 09:40:00 (02/08/20 4:40 [place] AM) CARDIAC ENZYMES 2020-02-08 0.12 [facility] 07:32:00 [place] CARDIAC ENZYMES 2020-02-08 245 [facility] 07:32:00 [place] CHEM PANEL 2020-02-08 100 [facility] 07:32:00 [place] CHEM PANEL 2020-02-08 15 [facility] 07:32:00 [place] CHEM PANEL 2020-02-08 1.43 [facility] 07:32:00 [place] CHEM PANEL 2020-02-08 141 [facility] 07:32:00 [place] CHEM PANEL 2020-02-08 3.5 [facility] 07:32:00 [place] CHEM PANEL 2020-02-08 107 [facility] 07:32:00 [place] CHEM PANEL 2020-02-08 26 [facility] 07:32:00 [place] CHEM PANEL 2020-02-08 8.7 [facility] 07:32:00 [place] CHEM PANEL 2020-02-08 7.5 [facility] 07:32:00 [place] CHEM PANEL 2020-02-08 3.2 [facility] 07:32:00 [place] CHEM PANEL 2020-02-08 27 [facility] 07:32:00 [place] CHEM PANEL 2020-02-08 23 [facility] 07:32:00 [place] CHEM PANEL 2020-02-08 87 [facility] 07:32:00 [place] CHEM PANEL 2020-02-08 0.4 [facility] 07:32:00 [place] CHEM PANEL 2020-02-08 11.5 [facility] 07:32:00 [place] CHEM PANEL 2020-02-08 07:32:00 Test Item Value Reference Range Interpretation Comme nts B/C Ratio (test code = B/C Ratio) 10 1 6-25 [facility] [id number] 07:32:004.3[facility] PANEL 2020-02-08 07:32:00 Test Item Value Reference Range Interpretation Comments A/G Ratio (test code = A/G Ratio) 0.7 1 0.7-1.6 [facility] [id number] 07:32:0074[facility] 2020-02-08 07:32:0010.8[facility] UdelczmUWXBBOQAPO8950-55-03 07:32:004.16[facility] TawgewhSKZFLWTVVL3588-65-61 07:32:0011.6[facility] BtspywpXZKRHJCGTF6364-57-38 07:32:0035.1[facility] MqsxnomCKLWFVIYNC8672-93-72 07:32:0084.4[facility] [place] [id number] 07:32:00 Test Item Value Reference Range Interpretation Comments MCH (test code = MCH) 28.0 pg 27.0-31.0 [facility] [id number] 07:32:0033.1[facility]OLOGY 2020-02-08 07:32:0014.3[facility] LjjfjclGUCYXMNQQW5543-56-81 07:32:70875Bdnpcggx UctudbrTABMFVNAJN2256-38-34 07:32:007.4[facility] XgnyvfzFYCRJQNJXK6191-73-34 07:32:0065.5[facility] TowzajgUCIKWSRJTI4229-97-46 07:32:0019.0[facility] [place] [id number] 07:32:007.1[facility] ZtehcviDCBLYTQMHY9445-52-38 07:32:007.7 [facility] IdsuksnMQXFBNRNFZ6223-09-22 07:32:000.7[facility]ann[facility]MATOLOGY 2020-02-08 07:32:007.1[facility] MlwhiejFOBBEIHFND0286-46-17 07:32:002.1[facility] KqniditYCZSHAJSAA6311-71-73 07:32:000.8[facility] QiqxymvBIAEERYCAY6250-03-12 07:32:000.8[facility] DbelpxvXFRTEPAWPF3125-33-33 07:32:000.1[facility] CARDIAC FSBHCKT0871-38-41 13:52:000.09[facility] HermannCHEM HFMLV5450-55-79 13:52:0098[facility]annCHEM MWPWL4440-43-01 13:52:0014[facility]annCHEM LTLEO5561-10-55 13:52:001.26[facility]annCHEM KUCYP1998-49-59 13:52:28222 [facility]annCHEM MMEIF2967-01-82 13:52:003.9[facility]annCHEM PANEL 2020-01-09 13:52:11452Qhocexpc HermannCHEM YIJOU7484-08-67 13:52:0025[facility]annCHEM NIVAW8538-56-12 13:52:008.5[facility]annCHEM GGLHB2670-72-90 13:52:0011.9[facility]annCHEM TTXMV6939-08-63 13:52:0087[facility] JPZHEROAVN8910-74-87 13:52:0010.5[facility] NkcchitRKUOXQFXUW6005-70-21 13:52:00 4.75[facility] CyznjjeZRHYNRVRWL3621-31-62 13:52:0013.3[facility]annHEMATOLOGY 2020-01-09 13:52:0039.8[facility] LtxgpoyCOJOCVIYKU1312-43-93 13:52:0083.9[facility] QqieghhSZTSNSOGZH4300-98-42 13:52:00 Test Item Value Reference Range Interpretation Comments MCH (test code = MCH) 28.0 pg 27.0-31.0 [facility] DgfprjsZEWZERRGFZ3034-16-44 13:52:0033.3[facility]annHEMATOLOGY 2020-01-09 13:52:0014.4[facility] BhdynlyYUJEWEDXYH3277-78-62 13:52:90210Lueietyp XylycylFFOFHHLFQK2428-93-78 13:52:007.4[facility] BpfvvetOUXLMCWWGK2646-85-74 13:52:0064.1[facility] PudslsfVMIFHOHXSZ1066-21-02 13:52:0018.0[facility] UGCDIHWYFJ9770-34-49 13:52:009.2[facility] MsdkxkqVBOIDAYWEY7064-31-12 13:52:008.1 [facility] KmqdfqkHZQSXYABPX0810-16-56 13:52:000.6[facility]annHEMATOLOGY 2020-01-09 13:52:006.7[facility] OmhwwykVUVBUDNOHJ1516-48-97 13:52:001.9[facility] NxrwdecJFIIOLZZAW9200-68-81 13:52:001.0[facility] YujjjjmJYGZNQSVDF3568-22-26 13:52:000.8[facility] XyreahwIEAEZSMNLB7928-05-93 13:52:000.1[facility] FDASIHNSJP1651-58-66 13:52:000.46[facility]
--- NOTE | 2020-04-26 15:32 | RAD REPORT ---
EXAM DESCRIPTION: Mikaela Ron And Lat (2 Views)04/26/2020 3:19 pm CLINICAL HISTORY: Cough COMPARISON: June 2019 FINDINGS: The lungs appear clear of acute infiltrate. The heart is mildly to moderately enlarged. The upper lobe vessels are prominent indicative pulmonary venous hypertension
[2020-04-26 17:32] LABS: Absolute Lymphocytes (CBC) 1.8 K/uL (0.7-4.9); Basophils % 0.7 % (0-1.3); Hematocrit 35.8 % (39.6-49.0); Lymphocytes % 15.2 % (15.3-44.8); MPV 7.6 fL (7.6-11.3); RBC Red Blood Cell Count 4.42 M/uL (4.33-5.43)
[2020-04-26 17:47] LABS: Ferritin 42.8 ng/mL (26-388); Potassium 3.8 mmol/L (3.5-5.1)
--- NOTE | 2020-04-26 17:53 | RAD REPORT ---
EXAM DESCRIPTION: CT - Chest For Pe Angio - 04/26/2020 5:42 pm CLINICAL HISTORY: Cough/shortness of breath COMPARISON: June 2019 TECHNIQUE: Dynamically enhanced axial 3 mm thick images of the chest were obtained during administra tion of <100> mL Isovue 370 IV contrast. Coronal and oblique reconstruction images were generated and reviewed. Exam utilizes a protocol for optimal evaluation of pulmonary arterial tree. Maximum intensity projections 3D imaging was utilized All CT scans are performed using dose optimization technique as appropriate and may include automated exposure control or mA/KV adjustment according to patient size. FINDINGS: A pulmonary embolus is not seen. A thoracic aortic aneurysm is not noted. A pleural effusion is not seen. A pericardial effusion is not seen. A lung consolidation is not present. IMPRESSION: Negative for a pulmonary embolism.
[2020-04-26] MEDS ORDERED: NITROGLYCERIN 1 GM PKT TD ONE (19:01)
[2020-04-26] MEDS ORDERED: FUROSEMIDE 40 MG/4 ML VIAL ONE (19:01)
--- NOTE | 2020-04-26 19:03 | EDPHYS ---
[facility] Name: Isaiah Spain Age: 34 yrs Sex: Male : 1985 Arrival Date: 04/26/2020 Time: 14:18 Bed 7 Private MD: ED Physician Vazquez Pineda HPI: 04/26 19:05 This 34 yrs old Black Male presents to ER via Ambulatory with complaints of Cough, snw Shortness Of Breath. 19:05 The patient or guardian reports difficulty breathing, sleep apnea. Onset: The snw symptoms/episode began/occurred gradually, 1 week(s) ago, and became worse and became persistent. Modifying factors: The symptoms are alleviated by nothing, the symptoms are aggravated by exertion. Associated signs and symptoms: Pertinent positives: fatigue, shortness of breath. It is unknown whether or not the patient has had similar symptoms in the past. The patient has not recently seen a physician. non-compliant with medications. Hx of angioedema. Historical: - Allergies: 14:41 Oseltamivir; sv - PMHx: 14:41 Asthma; sv - PSHx: 14:41 None; sv - Immunization history:: Flu vaccine is up to date. - Social history:: Smoking status: Patient denies any tobacco usage or history of. ROS: 19:03 Eyes: Negative for injury, pain, redness, and discharge, ENT: Negative for injury, snw pain, and discharge, Neck: Negative for injury, pain, and swelling. 19:03 Abdomen/GI: Negative for abdominal pain, nausea, vomiting, diarrhea, and constipation, Back: Negative for injury and pain, : Negative for injury, bleeding, discharge, and swelling, MS/Extremity: Negative for injury and deformity, Skin: Negative for injury, rash, and discoloration, Neuro: Negative for headache, weakness, numbness, tingling, and seizure, Psych: Negative for depression, anxiety, suicide ideation, homicidal ideation, and hallucinations. 19:03 Constitutional: Positive for fatigue, malaise. 19:03 Cardiovascular: Positive for orthopnea, paroxysmal nocturnal dyspnea, Negative for edema. 19:03 Respiratory: Positive for cough, dyspnea on exertion, orthopnea, shortness of breath. Exam: 18:30 ECG was reviewed by the Attending Physician. Sinus tach with nonspecific T wave snw abnormality, Left atrial enlargement 19:04 Head/Face: Normocephalic, atraumatic. Eyes: Pupils equal round and reactive to light, snw extra-ocular motions intact. Lids and lashes normal. Conjunctiva and sclera are non-icteric and not injected. Cornea within normal limits. Periorbital areas with no swelling, redness, or edema. ENT: Nares patent. No nasal discharge, no septal abnormalities noted. Tympanic membranes are normal and external auditory canals are clear. Oropharynx with no redness, swelling, or masses, exudates, or evidence of obstruction, uvula midline. Mucous membranes moist. Neck: Trachea midline, no thyromegaly or masses palpated, and no cervical lymphadenopathy. Supple, full range of motion without nuchal rigidity, or vertebral point tenderness. No Meningismus. Chest/axilla: Normal chest wall appearance and motion. Nontender with no deformity. No lesions are appreciated. 19:04 Abdomen/GI: Soft, non-tender, with normal bowel sounds. No distension or tympany. No guarding or rebound. No evidence of tenderness throughout. Back: No spinal tenderness. No costovertebral tenderness. Full range of motion. Skin: Warm, dry with normal turgor. Normal color with no rashes, no lesions, and no evidence of cellulitis. MS/ Extremity: Pulses equal, no cyanosis. Neurovascular intact. Full, normal range of motion. Neuro: Awake and alert, GCS 15, oriented to person, place, time, and situation. Cranial nerves II-XII grossly intact. Motor strength 5/5 in all extremities. Sensory grossly intact. Cerebellar exam normal. Normal gait. Psych: Awake, alert, with orientation to person, place and time. Behavior, mood, and affect are within normal limits. 19:04 Constitutional: The patient appears alert, anxious, obese. 19:04 Cardiovascular: Rate: tachycardic, Rhythm: regular, Pulses: Pulses are 2+ in . Heart sounds: S3, Edema: is not appreciated. 19:04 Respiratory: mild respiratory distress is noted, Respirations: accessory muscle usage, shallow respirations, tachypnea, Breath sounds: are clear throughout, Dyspnea on exertion. Vital Signs: 14:41 BP 154 / 106; Pulse 112; Resp 26; Temp 98.5; Weight 113.4 kg; Height 5 ft. 8 in. sv (172.72 cm); 17:22 BP 169 / 115; Pulse 115; Resp 22; Pulse Ox 98% on R/A; ph 18:29 BP 163 / 109; Pulse 115; Resp 20; Pulse Ox 100% on R/A; ph 20:17 BP 153 / 98; Pulse 113; Resp 20; Pulse Ox 100% ; mg2 21:41 BP 144 / 84; Pulse 105; Resp 18; Temp 98.4; Pulse Ox 97% on R/A; rv 14:41 Body Mass Index 38.01 (113.40 kg, 172.72 cm) sv MDM: 16:58 Patient medically screened. snw 19:02 Data reviewed: vital signs, nurses notes. Data interpreted: Pulse oximetry: on room air snw is 100 %. Interpretation: normal. Counseling: I had a detailed discussion with the patient and/or guardian regarding: the historical points, exam findings, and any diagnostic results supporting the discharge/admit diagnosis, lab results, radiology results, the need for further work-up and treatment in the hospital. Physician consultation: Hao MARTIN was called at 19:03, was contacted at 19:03, regarding admission, to the telemetry unit. 04/26 14:46 Order name: Flu; Complete Time: 17:57 snw 04/26 16:59 Order name: CBC with Diff; Complete Time: 17:37 snw 04/26 16:59 Order name: Chem 7; Complete Time: 17:57 snw 04/26 16:59 Order name: Ferritin; Complete Time: 17:57 snw 04/26 18:47 Order name: Urine Dipstick--Ancillary (enter results); Complete Time: 20:22 bd 04/26 19:20 Order name: Troponin (emerg Dept Use Only); Complete Time: 20:00 la1 04/26 19:20 Order name: BNP; Complete Time: 20:00 la1 04/26 19:20 Order name: BNP snw 04/26 19:20 Order name: Troponin (emerg Dept Use Only) snw 04/26 19:20 Order name: TSH; Complete Time: 20:00 snw 04/26 20:33 Order name: SARS-COV-2 RT PCR; Complete Time: 20:34 EDMS 04/26 20:37 Order name: CORONAVIRUS EDMS 04/26 14:46 Order name: Chest Pa And Lat (2 Views) XRAY; Complete Time: 15:50 snw 04/26 15:51 Order name: CT Chest For PE Angio; Complete Time: 17:57 snw 04/26 18:01 Order name: EKG; Complete Time: 18:01 snw 04/26 18:01 Order name: EKG - Nurse/Tech; Complete Time: 18:29 snw 04/26 23:28 Order name: Troponin I; Complete Time: 23:35 EDMS 04/27 02:56 Order name: CREATININE WHOLE BLOOD EDMS 04/27 05:00 Order name: CBC with Automated Diff EDMS 04/27 05:07 Order name: Basic Metabolic Panel EDMS 04/27 05:07 Order name: Troponin I EDMS 04/27 05:07 Order name: Lipid Profile EDMS 04/27 05:07 Order name: Magnesium EDMS Administered Medications: 19:01 Drug: Nitro-Bid Ointment 2 % 1 inches Route: Transdermal; Site: anterior chest wall; ph 21:40 Follow up: Response: No adverse reaction rv 19:02 Drug: Lasix 40 mg Route: IVP; Site: right antecubital; ph 21:40 Follow up: Response: Other; urine output: 1500ml rv 19:47 Drug: Metoprolol TARTRATE (Lopressor) 50 mg Route: PO; rv 21:40 Follow up: Response: Blood pressure is lowered rv 21:40 Not Given (Patient Refused): morphine 4 mg IVP once; RASS on ADMIN: Combtv4, Very rv Agttd3, Agttd2, Rstlss1, AlertClm0, Drwsy-1, Lt Sdtn-2, Mod Sdtn-3, Dp Sdtn-4, UnArsble-5 23:52 Drug: Aspirin Chewable Tablet 324 mg Route: PO; rv Disposition: 04/28 07:30 Co-signature as Attending Physician, Vazquez Pindea MD I agree with the assessment and kdr plan of care. Disposition: 04/26/20 19:02 Hospitalization ordered by Magno Shore for Inpatient Admission. Preliminary diagnosis are Unspecified systolic (congestive) heart failure, Essential (primary) hypertension, Dyspnea. - Bed requested for Telemetry/MedSurg (Inpatient). - Status is Inpatient Admission. aa5 - Condition is Stable. - Problem is an acute exacerbation. - Symptoms have worsened. Signatures: Dispatcher [employer] EDGA Roya Redd, RN RN Vazquez Pineda MD MD [facility] Raine Albarado, WALL MAN-C WALL MAN-Csnw Martita Tran, RN RN aa5 Jaz Arnodl RN RN Zoë Elder, RN RN Alyce Hills mw2 Dm Matute RN RN rv Corrections: (The following items were deleted from the chart) 04/26 19:19 19:02 Hospitalization Ordered by Justin Faulkner MD for Inpatient Admission. Preliminary snw diagnosis is Unspecified systolic (congestive) heart failure; Essential (primary) hypertension; Dyspnea. Bed requested for Telemetry/MedSurg (Inpatient). Status is Inpatient Admission. Condition is Stable. Problem is an acute exacerbation. Symptoms have worsened. [facility] 19:45 14:46 CORONAVIRUS+MR.LAB.BRZ ordered. [facility] ED[facility] 20:41 19:19 04/26/2020 19:02 Hospitalization Ordered by Magno Shore DO for Inpatient mw2 Admission. Preliminary diagnosis is Unspecified systolic (congestive) heart failure; Essential (primary) hypertension; Dyspnea. Bed requested for Telemetry/MedSurg (Inpatient). Status is Inpatient Admission. Condition is Stable. Problem is an acute exacerbation. Symptoms have worsened. snw 04/27 06:48 04/26 20:41 04/26/2020 19:02 Hospitalization Ordered by Magno Shore DO for Inpatient Admission. Preliminary diagnosis is Unspecified systolic (congestive) heart failure; Essential (primary) hypertension; Dyspnea. Bed requested for [facility] ER HOLD. Status is Inpatient Admission. Condition is Stable. Problem is an acute exacerbation. Symptoms have worsened. mw2 04/27 08:09 06:48 04/26/2020 19:02 Hospitalization Ordered by Magno Shore DO for Inpatient aa5 Admission. Preliminary diagnosis is Unspecified systolic (congestive) heart failure; Essential (primary) hypertension; Dyspnea. Bed requested for Telemetry/MedSurg (Inpatient). Status is Inpatient Admission. Condition is Stable. Problem is an acute exacerbation. Symptoms have worsened.
--- NOTE | 2020-04-26 19:03 | ER ---
Nurse's Notes [facility] Name: Isaiah Spain Age: 34 yrs Sex: Male : 1985 Arrival Date: 04/26/2020 Time: 14:18 Bed 7 Private MD: Diagnosis: Unspecified systolic (congestive) heart failure;Essential (primary) hypertension;Dyspnea Presentation: 04/26 14:40 Chief complaint: Patient states: SOB with exertion and cough in the evening x 1 week. sv Coronavirus screen: Client denies travel out of the [place] in the last 14 days. At this time, the client does not indicate any symptoms associated with coronavirus-19. Ebola Screen: No symptoms or risks identified at this time. Risk Assessment: Do you want to hurt yourself or someone else? Patient reports no desire to harm self or others. Onset of symptoms was April 2020. 14:40 Method Of Arrival: Ambulatory sv 14:40 Acuity: TAWANA 3 sv 14:41 Initial Sepsis Screen: Does the patient meet any 2 criteria? No. Patient's initial sv sepsis screen is negative. Does the patient have a suspected source of infection? No. Patient's initial sepsis screen is negative. Triage Assessment: 14:41 General: Appears in no apparent distress. comfortable, Behavior is calm, cooperative, sv appropriate for age. Neuro: Level of Consciousness is awake, alert, obeys commands, Gait is steady. Respiratory: Reports shortness of breath cough that is non-productive, Respiratory effort is even, unlabored, Respiratory pattern is tachypnea. 21:43 Respiratory: Onset: The symptoms/episode began/occurred gradually, the patient has mild rv shortness of breath. Historical: - Allergies: 14:41 Oseltamivir; sv - PMHx: 14:41 Asthma; sv - PSHx: 14:41 None; sv - Immunization history:: Flu vaccine is up to date. - Social history:: Smoking status: Patient denies any tobacco usage or history of. Screenin:22 Abuse screen: Denies threats or abuse. Denies injuries from another. Nutritional ph screening: No deficits noted. Tuberculosis screening: No symptoms or risk factors identified. Fall Risk None identified. Assessment: 17:23 General: Appears in no apparent distress. comfortable, obese, well groomed, Behavior is ph calm, cooperative, appropriate for age, Denies fever. Pain: Denies pain. Neuro: Level of Consciousness is awake, alert, obeys commands, Oriented to person, place, time, situation. Cardiovascular: Reports fatigue, shortness of breath, Denies chest pain, nausea, palpitations, syncope, Capillary refill < 3 seconds in bilateral fingers Patient's skin is warm and dry. Rhythm is sinus tachycardia. Respiratory: Reports shortness of breath on exertion cough that is Airway is patent Respiratory effort is even, unlabored, Respiratory pattern is tachypnea. GI: No signs and/or symptoms were reported involving the gastrointestinal system. Derm: Skin is intact, Skin is pink, warm \T\ dry. Musculoskeletal: Circulation, motion, and sensation intact. Range of motion: intact in all extremities. 18:30 Reassessment: Patient appears in no apparent distress at this time. Patient and/or ph family updated on plan of care and expected duration. Pain level reassessed. Patient is alert, oriented x 3, equal unlabored respirations, skin warm/dry/pink. 19:25 Reassessment: Patient appears in no apparent distress at this time. Patient and/or ph family updated on plan of care and expected duration. Pain level reassessed. Patient is alert, oriented x 3, equal unlabored respirations, skin warm/dry/pink. 21:42 Respiratory: Breath sounds with crackles bilaterally. rv Vital Signs: 14:41 BP 154 / 106; Pulse 112; Resp 26; Temp 98.5; Weight 113.4 kg; Height 5 ft. 8 in. sv (172.72 cm); 17:22 BP 169 / 115; Pulse 115; Resp 22; Pulse Ox 98% on R/A; ph 18:29 BP 163 / 109; Pulse 115; Resp 20; Pulse Ox 100% on R/A; ph 20:17 BP 153 / 98; Pulse 113; Resp 20; Pulse Ox 100% ; mg2 21:41 BP 144 / 84; Pulse 105; Resp 18; Temp 98.4; Pulse Ox 97% on R/A; rv 14:41 Body Mass Index 38.01 (113.40 kg, 172.72 cm) sv Vitals: 17:22 Cardiac Rhythm Assessment Sinus tach. ph ED Course: 14:18 Patient arrived in ED. rg4 14:22 Raine Albarado FNP-C [facility]. snw 14:22 Vazquez Pineda MD is Attending Physician. snw 14:40 Arm band placed on. sv 14:41 Triage completed. sv 15:17 Chest Pa And Lat (2 Views) XRAY In Process Unspecified. EDMS 16:49 Jaz Arnold, RN is Primary Nurse. ph 17:12 Patient has correct armband on for positive identification. Bed in low position. Call mh5 light in reach. Side rails up X 1. casualty underwriter on. Pulse ox on. NIBP on. 17:12 Missed attempt(s): 20 gauge in right antecubital area. mh5 17:22 Initial lab(s) drawn, by me, sent to lab. Flu and/or RSV swab sent to lab. Inserted ph saline lock: 22 gauge in right antecubital area, using aseptic technique. Blood collected. 17:42 CT Chest For PE Angio In Process Unspecified. EDMS 19:01 Justin Faulkner MD is Hospitalizing Provider. snw 19:19 Hospitalizing Provider role handed off by Justin Faulkner MD snw 19:19 Magno Shore DO is Hospitalizing Provider. snw 20:04 Primary Nurse role handed off by Jaz Arnold RN mw2 20:15 Warren Paz, JIE is Primary Nurse. mg2 21:42 No provider procedures requiring assistance completed. IV is patent, with fluids rv infusing freely, Patient admitted, IV remains in place. Administered Medications: 19:01 Drug: Nitro-Bid Ointment 2 % 1 inches Route: Transdermal; Site: anterior chest wall; ph 21:40 Follow up: Response: No adverse reaction rv 19:02 Drug: Lasix 40 mg Route: IVP; Site: right antecubital; ph 21:40 Follow up: Response: Other; urine output: 1500ml rv 19:47 Drug: Metoprolol TARTRATE (Lopressor) 50 mg Route: PO; rv 21:40 Follow up: Response: Blood pressure is lowered rv 21:40 Not Given (Patient Refused): morphine 4 mg IVP once; RASS on ADMIN: Combtv4, Very rv Agttd3, Agttd2, Rstlss1, AlertClm0, Drwsy-1, Lt Sdtn-2, Mod Sdtn-3, Dp Sdtn-4, UnArsble-5 23:52 Drug: Aspirin Chewable Tablet 324 mg Route: PO; rv Intake: Outcome: 19:02 Decision to Hospitalize by Provider. snw 21:42 Admitted to ER Hold. Please see [facility] for further documentation. rv 21:42 Condition: good 21:42 Instructed on the need for admit. 04/27 08:09 Patient left the ED. aa5 Signatures: Dispatcher [employer] EDRoya Garcia RN RN Raine Albarado, COAL HANDLER-C COAL HANDLER-Csnw Martita Tran RN RN aa5 Jaz Arnold RN RN Jerrod, Kaylee 4 Carlita Cardozo 5 Jeana, Alyce mw2 Warren Paz RN RN [facility] Dm Matute RN RN rv Corrections: (The following items were deleted from the chart) 04/26 14:42 14:40 Chief complaint: Patient states: SOB with exertion and cough in the evening x 1 sv week sv 14:43 14:40 Acuity: TAWANA 3 sv sv 14:43 14:41 Pulse 112bpm; Resp 26bpm; Temp 98.5F; 113.4 kg; Height 5 ft. 8 in.; BMI: 38.0; sv sv
[2020-04-26] MEDS ORDERED: METOPROLOL TAR 50 MG TAB ONE (19:54)
[2020-04-26 19:58] LABS: Thyroid Stimulating Hormone 1.34 uIU/mL (0.360-3.740); Troponin (Emerg Dept Use Only) 0.06 ng/mL (0.0-0.045)
[2020-04-26 20:17] LABS: Urine Blood TRACE (NEG); Urine Glucose NEGATIVE (NEG); Urine Protein 1+ (NEG)
--- NOTE | 2020-04-26 20:38 | P.HP ---
Certification for Inpatient Patient admitted to: Observation With expected LOS: <2 Midnights Patient will require the following post-hospital care: None Practitioner: I am a practitioner with admitting privileges, knowledge of patient current condition, hospital course, and medical plan of care. Services: Services provided to patient in accordance with Admission requirements found in Title 42 Section 412.3 of the Code of Federal Regulations Patient History Date of Service: 04/26/20 Primary Care Provider: None Reason for admission: Hypertensive urgency, CHF exacerbation History of Present Illness: 34-year-old male with history of recently diagnosed congestive heart failure, hypertension, asthma presents emergency department for shortness of breath with exertion. Patient reports he was recently hospitalized in February and diagnosed with CHF. Patient stopped taking his medications on his own accord. Patient was noted to be hypertensive with blood pressure around 160/120 in tachycardic around 120 upon presentation to the emergency department. He was given 40 of Lasix IV, nitro in the emergency department. Patient reports he is taking lisinopril at home but he has had 3 episodes of angioedema. Labs significant for troponin 0.06 and BNP elevated to 2695. Chest x-ray with some pulmonary edema and cardiomegaly. ED provider wishes to admit patient for further evaluation and management. When I saw the patient in the ER he was awake, alert, oriented x3. Patient in no distress, having no chest pain at this time. Patient reports with any exertion he does become very short of breath. Patient given 50 mg metoprolol p.o., will hold lisinopril due to patient's history of multiple episodes of angioedema. Will continue with IV Lasix, beta-laurent therapy and switched to losartan. Case discussed with hospitalist attending. Allergies oseltamivir [From Tamiflu] Allergy (Verified 06/14/19 20:01) seecom Home Medications: Albuterol Sulfate [Proair Hfa] 2 puff IH TID PRN #1 [email or web address] 06/15/19 Amlodipine [Norvasc*] 10 mg PO DAILY #30 tab 06/15/19 Mometasone/Formoterol [Dulera 200 Mcg/5 Mcg Inhaler] 2 puff IH BID #1 inhaler 06/15/19 Pantoprazole [Protonix Tab] 40 mg PO DAILY #30 tab 06/15/19 levoFLOXacin [Levaquin*] 500 mg PO DAILY #3 tab 06/15/19 - Past Medical/Surgical History Diabetic: No -: Asthma -: Chronic CHF-unknown EF -: Hypertension -: none Psychosocial/ Personal History: Patient currently works at the [employer] and lives alone - Family History Mother -: Heart disease - Social History Smoking Status: Never smoker Alcohol use: No CD- Drugs: No Caffeine use: Yes Place of Residence: Home Review of Systems 10-point ROS is otherwise unremarkable Respiratory: SOB with Excertion Physical Examination - Physical Exam General: Alert, In no apparent distress HEENT: Atraumatic, PERRLA, Mucous membr. moist/pink Neck: Supple, 2+ carotid pulse no bruit, No LAD Respiratory: Normal air movement, Other (Breath sounds coarse bilaterally) Cardiovascular: Regular rate/rhythm, Normal S1 S2 Gastrointestinal: Normal bowel sounds, No tenderness Musculoskeletal: No tenderness Integumentary: No rashes Neurological: Normal speech, Normal strength at 5/5 x4 extr, Normal tone, Normal affect - Studies Laboratory Data (last 24 hrs) 04/26/20 17:10: Sodium 139, Potassium 3.8, BUN 13, Creatinine 1.25, Glucose 88 04/26/20 17:10: WBC 11.8 H, Hgb 11.6 L, Hct 35.8 L, Plt Count 400 Microbiology Data (last 24 hrs): 04/26/20 17:15 Nasopharnyx Influenza Type A Antigen Screen - Final 04/26/20 17:15 Nasopharnyx Influenza Type B Antigen Screen - Final Assessment and Plan - Plan Assessment Hypertensive urgency secondary to acute on chronic congestive heart failure- unknown EF Hypertension-uncontrolled Plan Hypertensive urgency secondary to acute on chronic congestive heart failure- unknown EF: Mildly elevated troponin, suspect demand ischemia. Trend troponins, monitor on telemetry. Continue with IV Lasix, beta-laurent, replace lisinopril with losartan due to patient's history of angioedema. Cardiology consult in place. Will attempt to obtain echocardiogram results from hospitalization in February. DVT prophylaxis Lovenox 40 mg subcutaneous once daily. Hypertension-uncontrolled: Continue with metoprolol, losartan. Obtain other home medications and continue as appropriate. Hold ASHLIE-inhibitor due to angioe rocael. Discharge Plan: Home - Advance Directives Does patient have a Living Will: No Does patient have a Durable POA for Healthcare: No - Code Status/Comfort Care Code Status Assessed: Yes (Full code) Critical Care: No Time Spent Managing Pts Care (In Minutes): 55
[2020-04-26 22:02] VITALS: O2SAT 97; BMI 35.9
[2020-04-26] MEDS: METOPROLOL TAR 50 MG TAB PO SCH (22:10)
[2020-04-26] MEDS ORDERED: ONDANSETRON 4 MG/2 ML VIAL IV PRN (22:10)
[2020-04-26] MEDS ORDERED: ACETAMINOPHEN 500 MG TAB PO PRN (22:10)
[2020-04-26] MEDS ORDERED: BENZONATATE 100 MG CAP PO PRN (23:15)
[2020-04-27] MEDS ORDERED: ASPIRIN 81 MG CHEWABLE TABLET ONE (00:06)
[2020-04-27 04:56] LABS: Basophils % 0.6 % (0-1.3); Hematocrit 35.6 % (39.6-49.0); Lymphocytes % 16.4 % (15.3-44.8); MPV 7.9 fL (7.6-11.3); RBC Red Blood Cell Count 4.37 M/uL (4.33-5.43)
[2020-04-27 05:07] LABS: Magnesium 2.3 mg/dL (1.8-2.4); Potassium 3.9 mmol/L (3.5-5.1); Troponin I 0.08 ng/mL (0.0-0.045)
[2020-04-27] MEDS ORDERED: LOSARTAN POTASSIUM 50 MG TABLET PO SCH (09:00)
[2020-04-27] MEDS ORDERED: AMLODIPINE 5 MG TAB PO SCH (09:00)
[2020-04-27] MEDS ORDERED: POTASSIUM CL SA 10 MEQ TAB PO ONE (09:00)
[2020-04-27] MEDS ORDERED: ASPIRIN EC 81 MG TAB PO SCH (09:00)
[2020-04-27] MEDS ORDERED: ENOXAPARIN 40 MG/0.4 ML SQ SCH (09:00)
--- NOTE | 2020-04-27 10:21 | P.DS ---
Admission Date: 04/27/20 (Hospital is) Discharge Date: 04/27/20 Primary Care Provider: None Disposition: ROUTINE DISCHARGE Discharge Condition: FAIR Reason for Admission: Hypertensive urgency, CHF exacerbation Brief History of Present Illness: Patient is 34 years of age non compliant with his medication admitted with shortness of breath and hypertension he stop taking his medications he also bought a CPAP for himself has been using it every night Hospital Course: Patient did well at the time of discharge he was alert oriented responsive cooperative chest clear cardiovascular system os sounds normal the given him additional doses of amlodipine and losartan possible discharge today he is to follow up with myself or primary care doctor Vital Signs/Physical Exam: Temp Pulse Resp BP Pulse Ox 96.6 F L 107 H 24 H 163/116 H 97 04/27/20 08:00 04/27/20 08:00 04/27/20 08:00 04/27/20 08:00 04/27/20 08:00 Laboratory Data at Discharge: WBC 12.4 K/uL (4.3-10.9) H 04/27/20 04:30 Hgb 11.3 g/dL (13.6-17.9) L 04/27/20 04:30 Hct 35.6 % (39.6-49.0) L 04/27/20 04:30 Plt Count 424 K/uL (152-406) H 04/27/20 04:30 Sodium 141 mmol/L (136-145) 04/27/20 04:30 Potassium 3.9 mmol/L (3.5-5.1) 04/27/20 04:30 BUN 19 mg/dL (7-18) H 04/27/20 04:30 Creatinine 1.35 mg/dL (0.55-1.3) H 04/27/20 04:30 Glucose 94 mg/dL (74-106) 04/27/20 04:30 Magnesium 2.3 mg/dL (1.8-2.4) 04/27/20 04:30 Troponin I 0.08 ng/mL (0.0-0.045) H 04/27/20 04:30 Triglycerides 104 mg/dL (<150) 04/27/20 04:30 Cholesterol 168 mg/dL (<200) 04/27/20 04:30 HDL Cholesterol 27 mg/dL (40-60) L 04/27/20 04:30 Cholesterol/HDL Ratio 6.22 04/27/20 04:30 Home Medications: Albuterol Sulfate [Proair Hfa] 2 puff IH TID PRN #1 hfa.aer.ad 06/15/19 Mometasone/Formoterol [Dulera 200 Mcg/5 Mcg Inhaler] 2 puff IH BID #1 inhaler 06/15/19 Pantoprazole [Protonix Tab*] 40 mg PO DAILY #30 tab 06/15/19 Amlodipine [Norvasc*] 10 mg PO DAILY #30 tab 04/27/20 Furosemide [Lasix] 20 mg PO 30 MIN BEFORE HS 30 Days tablet 04/27/20 Losartan Potassium 100 mg PO DAILY #30 tablet 04/27/20 New Medications: Furosemide [Lasix] 20 mg PO 30 MIN BEFORE HS 30 Days tablet Losartan Potassium 100 mg PO DAILY #30 tablet Amlodipine [Norvasc*] 10 mg PO DAILY #30 tab Followup: NONE,NONE [Primary Care Provider] -
[2020-04-27] MEDS: METOPROLOL TAR 50 MG TAB PO SCH (10:48)
[2020-04-27] MEDS: FUROSEMIDE 20 MG/ 2ML VIAL IV SCH ×2 (10:49→16:43)
[2020-04-27] MEDS: AMLODIPINE 5 MG TAB PO STA (10:50)
[2020-04-27 14:24] VITALS: BP 144/95
[2020-04-27 17:27] VITALS: TEMP 97
--- NOTE | 2020-04-28 14:36 | CON ---
Date of Consultation: 04/27/2020 Reason For Consultation: CHF exacerbation. History Of Present Illness: 34-year-old male, history of congestive heart failure, hypertension, ast hma, presented with worsening shortness of breath, orthopnea and lower extremity edema. The patient apparently was put on Lasix at home; however, he has not been taken it and he claimed that he had a [facility] cardiac workup in past. Past Medical History: As outlined above in the HPI. Medications: Refer to reconciliation sheet for detailed list. Allergies: OSELTAMIVIR. Family History: No premature coronary artery disease or cancer. Social History: He does not smoke or drink. Does not use any drugs. Review of Systems: All systems reviewed and they were negative except for what is mentioned in the HPI. Physical Examination: Vital Signs: Temperature is 97.0, pulse 98, breathing at 18-20, blood pressure is 144/95, saturating 95% on room air. General: Pleasant young male, obese, no distress. Head and Neck: Pupils are equal, react to light. Intact eye movements. Mild JVD elevation. Lungs: Faint crackles in the bases. No accessory muscle use or muscle retraction. Heart: Regular rate and rhythm. No extra sounds. Abdomen: Soft and nontender. Bowel sounds positive. No organomegaly. Extremities: 1+ pedal edema. No clubbing, cyanosis. Intact pulses. Skin: No rash noted. Neurologic: Alert, awake, oriented x3. No acute focal deficits appreciated. Investigations: Creatinine is 1.35. Troponin 0.08. Assessment/plan: 1.Acute on chronic congestive heart failure exacerbation. Please obtain echocardiogram and continue IV diuretics. Monitor BUN, creatinine, electrolytes, and further plan based on the echocardiogram r esults to evaluate ejection fraction and wall motion abnormality. 2.Borderline elevated troponin, can obtain echocardiogram and further plan accordingly. SR/MODL Voice ID: [id number] Report ID: [id number]
== END 2020-04-27 17:27 | disposition home or self-care (01) | DRG 305 ==
LOC: ER 14:17 → ERHOLD 20:26 → 2ND 04-27 07:59 → OBSVTOIN 04-27 09:29
PROVIDERS: ADMIT Family Medicine; ATTEND Internal Medicine Sleep Medicine
DX: I16.0 Hypertensive urgency (principal); I11.0 Hypertensive heart disease with heart failure; I50.9 Heart failure, unspecified; Z88.8 Allergy status to other drugs, medicaments and biological substances; Z91.14 Patient's other noncompliance with medication regimen; Z60.2 Problems related to living alone; Z79.899 Other long term (current) drug therapy; Z20.828 Contact with and (suspected) exposure to other viral communicable diseases
CPT/HCPCS: 36415; 71046; 71275; 80048; 80061; 81003; 82565; 82728; 83735; 83880; 84443; 84484; 85025; 87804; 93005; 96374; 99285; J1650; J1940; Q9967; U0003